=== PATIENT | female | born 1935 | race Caucasian/White ===

== ENCOUNTER → 2016-09-26 | Outpatient (CLI) | payer OTHER ==
[~2016-09-26] MED LIST: ASPI-321 OR; DILT120C68 PO; DYZ PO; FLUO1TAB12 PO; HYDR-5688 PO; INSDGI SC; INSUINJ14 SQ; LOSA1TAB38 PO; NITR0.4S UT; NXM/40 PO; ROPI1TAB PO; ROSU40TA PO; ZNTT/150 PO
--- NOTE | 2016-09-27 05:38 | PAP/PSG TECHNICIAN REPORT ---
[facility] Electric Dolly Operator Polysomnogram Report Study name: None Report date: 09/27/2016 Study date: 09/26/2016 Referring Physician: Francisco Javier Medina M.D. Name: RONEN DAVONTE Hayley Interpreting Physician: Francisco Javier Medina M.D. Date of : 1935 Electric Dolly Operator: Clinton Charlton RPSGT. Sex: Female Age: 81 StudyType: PSG PAP Weight: 171 lbs 14 inches Height: 81 years, Height 5' 1" Neck Circum: BMI: 32.31 Medications: ASPIRIN 81 MG, CRESTOR 40 MG, DILTIAZEM HCL ER 120 MG, ESOMEPRAZOLE MAGNESIUM 40 MG, FLUOEXTINE HCL 20 MG, LANTUS SOLOSTAR, LOSARTAN POTASSIUM 100 MG, NITROSTAT 0.4 MG, NOVOLOG FLEXPEN, RANITIDINE HCL 150 MG, ROPINIROLE HCL ER 12 MG, TRIAMTERENE HCTZ Patient History PATIENT HAD A SLEEP STUDY DONE IN AUGUST OF 2016 AND WAS POSITIVE FOR MITZY WITH AN AHI OF 30/HR. SHE IS HERE TODAY FOR A CPAP TITRATION. RM 6 Parameters Monitored NPSG: E1-M2, E2-M1, Fp1-M2, Fp2-M1, F3-M2, F4-M2, F4-M1, C3-M2, C4-M2, C4-M1, O1-M2, O2-M2, O2-M1, T3-M2, T4-M1, P3-M2, P4-M1, CHIN1, CHIN2, HR, EKG, Legs, PFLOW, SNOR, FLOW, CFLOW, Tidal Volume, THOR, ABDO, SpO2, PLTH, CPRESS, ETCO2 Wave, ETCO2, pH Sleep Architecture Sleep Stages Time at Lights Off 10:14:03 PM STAGES Time (min.) TST (%) Time at Lights On 5:23:03 AM Wake 154.5 -- Total Recording Time (TRT) 429.50 min. N1 24.5 9 Total Sleep Period (TSP) 410.0 min. N2 128.0 47 Total Sleep Time (TST) 274.5min. N3 51.0 19 Awake Time 155.0 min. REM 71.0 26 Wake after Sleep Onset 135.5 min. Sleep Efficiency (SE) 64 % Sleep Onset Latency (SAKINA) 19.0 min. Number of Stage 1 Shifts None Awakenings 33 Stage Changes 127 Number of REM periods 4 REM 71.0 26 REM Latency 169.5 min. NREM 203.5 74 Body Position Analysis Supine Right Left Side Prone Vertical Total Sleep Time (min.) 288.7 17.8 95.2 113.00 0.0 0.0 Total Sleep Time (%) 59% 7% 35% 41 0% N/A% Total Sleep Time REM (min.) 40.0 0.0 31.0 None 0.0 0.0 Total Sleep Time NREM (min.) 121.5 17.8 64.2 None 0.0 0.0 Intermittent Wake (min.) 127.2 23.1 4.3 None 0.0 0.0 Total Sleep Period (%) 66% None None None None None Arousals Myoclonus (PLM) * Events Count Index Events Count Index Spontaneous 82 18 Events Awake (PLMW) 146 56.7 Respiratory 116 25.4 Events Asleep w/ Arousal (PLMA) 41 9.0 PLM 39 9 Events Asleep w/o Arousal (PLMS) 256 56.0 Snoring 2 0 Total Asleep 297 64.9 Total 239 52 Total 443 62 Respiratory Analysis * CA OA MA CH H RERA Total Count 31 53 19 0 88 6 191 Index 6.8 11.6 4.2 0 19.2 1 43.1 Mean Duration 17.9 24.2 32.4 0.00 21.1 17.6 22.4 Longest Duration 31.4 46.5 51.9 0.00 51.9 30.5 57.5 Respiratory Event Summary Total Supine ~Supine Right Left Prone REM NREM Apneas Count 103 88 15 12 3 N/A 37 66 Index 22.5 33 8 40.3 1.9 N/A 31 19 Hypopneas (4% Desat) Count 88 55 33 3 30 N/A 17 71 Index 19.2 20.4 18 10.1 18.9 N/A 14.4 20.9 Apneas & All Hypopneas Count 191 143 48 15 33 N/A 54 137 Index 41.7 53 25 50 21 N/A 45.6 40.4 Respiratory Events (Rn Admissions+All Hyp+RERA) Count 191 146 51 16 35 N/A 54 137 Index 43.1 54 27 53.8 22.1 N/A 46.5 41.9 Respiratory Related Arousal Count 116 146 25 9 16 N/A 26 90 Index 25.4 34 13 30 10 N/A 22 27 Snoring Analysis Supine Right Left Prone REM NREM Total Snore duration 6.9 min Snores count 82 12 93 N/A 4 183 187 Snore mean duration 2.2 Sec Snores index 30 40 59 N/A 3.4 54.0 40.9 TST with snoring (%) 2.5% Desaturation Event Summary: Minimum %SpO2 Event Count Mean/Min/Max Duration(sec.) Desaturation Index % Time In Bed > 90 193 33.1 / 8.0 / 86.1 31.4 88.2 86 - 90 9 17.4 / 14.0 / 24.3 13.5 9.6 81 - 85 0 N/A 0.0 2.2 76 - 80 0 N/A 0.0 0.0 71 - 75 0 N/A 0.0 0.0 66 - 70 0 N/A 0.0 0.0 61 - 65 0 N/A 0.0 0.0 56 - 60 0 N/A 0.0 0.0 51 - 55 0 N/A 0.0 0.0 < 50 0 N/A 0.0 0.0 Total REM NREM Awake <50% 0.0 min. 0.0 min. 0.0 min. 0.0 min. 51 - 60% 0.0 min. 0.0 min. 0.0 min. 0.0 min. 61 - 70% 0.0 min. 0.0 min. 0.0 min. 0.0 min. 71 - 80% 0.1 min. 0.0 min. 0.1 min. 0.0 min. 81 - 90% 49.1 min. 18.6 min. 26.5 min. 3.9 min. 91 - 100% 368.8 min. 52.4 min. 176.9 min. 139.5 min. Average 94 92 93 96 Minimum SpO2 80 81 80 84 Desaturation Event Index 27.1 43.1 38.9 5.4 # Desat. Events below 89% 85 34 48 3 Time(%) with Saturation below 89% 6.3 2.7 3.0 0.5 Time(min.) with Saturation below 89% 26.2 11.5 12.7 2.0 Time (mins) REM (mins) NREM (mins) % of TST SpO2 Below 90% 112 39 N73 12.2 SpO2 Below 88% 49 0 0 7 Heart Rate Analysis Min (bpm) Max (bpm) Average (bpm) Awake 55 127 64 NREM 54 74 64 REM 52 68 59 Overall 52 74 63 Supplemental O2 Values Minimum O2 level: None Value Start Time End Time Electric Dolly Operator Comments Mrs. Douglas slept in the right, left and supine positions. No cardiac arrhythmia noted. Leg movements noted. No bruxism noted. CPAP was initiated at +4 CMH2O and up-titrated to an level of +16 CMH2O. A ResMed F10 full face size extra small mask was used during titration Mrs. Douglas awoke to use the restroom 2 times during the night. Mrs. Douglas stated I did not sleep as well as I do when I am in my own bed. The patient had some mask issues throughout the study that interfered with the quality of the test. She would be bothered by the mask when she opened up her mouth and the bottom flap of the mask would go in her mouth. The same thing would happen to all of the masks she tried on. She slept with a full face F10 extra small mask that seemed to fit her the best but would cause problems for her when she opened her mouth. Also, I titrated up to 14cwp while having severe apneas and tried to use BIPAP but the patient didn't like how BIPAP felt, so I had to go back to CPAP. The patient continued to have centrals and mixed apneas at the higher pressures but would have many respiratory events at the lower pressures as well. The only time the patient seemed to sleep well was during stage 3 sleep. The final report will be interpreted and signed by a sleep physician. The completed physician report will then be placed in the patient medical record. Therapy Event: Therapy (cm H20) 4 5 6 8 9 10 11 Total Time at Pressure (min.) 52.0 16.5 30.6 35.1 55.5 24.5 29.0 TST at Pressure (min.) 9.0 16.0 27.1 34.6 19.5 24.0 27.5 # Periods 1 1 1 1 1 2 1 Sleep Onset (min.) 19.0 0.0 0.0 0.0 0.0 0.0 0.0 REM Onset (min.) N/A N/A N/A N/A 54.4 0.0 N/A Sleep Efficiency % 17 97 88 98 35 98 94 Wakefulness (%) 82.7 3.0 11.4 1.4 64.9 2.0 5.2 Wakefulness (min.) 43.0 0.5 3.5 0.5 36.0 0.5 1.5 NREM 1 (%) 10.6 9.1 24.5 0.0 1.8 4.5 0.0 NREM 1 (min.) 5.5 1.5 7.5 0.0 1.0 1.1 0.0 NREM 2 (%) 6.7 87.9 64.0 38.7 31.4 43.3 39.2 NREM 2 (min.) 3.5 14.5 19.6 13.6 17.4 10.6 11.4 NREM 3 (%) 0.0 0.0 0.0 59.9 0.0 0.0 55.6 NREM 3 (min.) 0.0 0.0 0.0 21.0 0.0 0.0 16.2 REM (%) 0.0 0.0 0.0 0.0 1.9 50.2 0.0 REM (min.) 0.0 0.0 0.0 0.0 1.1 12.3 0.0 # Arousals 14 32 49 18 22 15 8 Arousal Index 93.5 120.2 108.6 31.3 67.8 37.5 17.4 # Snore 13 20 23 11 7 3 71 Snore Index 86.8 75.2 51.0 19.1 21.6 7.5 154.6 AHI 80.1 63.9 37.7 26.0 67.8 45.0 17.4 AHI Supine 80.1 63.9 37.7 26.0 67.8 61.0 N/A AHI Non-Supine N/A N/A N/A N/A N/A 26.8 17.4 NREM AHI 80.1 63.9 37.7 26.0 68.4 30.8 17.4 REM AHI N/A N/A N/A N/A 56.4 58.6 N/A RDI 80.1 67.6 37.7 26.0 70.8 47.5 17.4 # Obstructive 0 1 0 2 6 9 2 # Central Ap 3 3 4 8 4 0 0 # Mixed 0 0 0 2 1 0 0 # Hypopneas 9 13 13 3 11 9 6 RERAS 0 1 0 0 1 1 0 Total Respiratory Events 12 18 17 15 23 19 8 Time Below SpO2 89.00% (min.) 2.0 0.7 0.0 1.1 3.4 4.1 0.5 Mean NREM SpO2 (%) 92 93 95 93 93 92 92 Mean REM SpO2 (%) N/A N/A N/A N/A 90 90 N/A Mean Sleep SpO2 (%) 92 93 95 93 93 91 92 Min NREM SpO2 (%) 81 87 90 85 80 85 85 Min REM SpO2 (%) N/A N/A N/A N/A 83 81 N/A Position Supine (min.) 9.0 16.0 27.1 34.6 19.5 12.8 0.0 Position Non-supine (min.) 0.0 0.0 0.0 0.0 0.0 11.2 27.5 LM Index Sleep 113.5 172.8 177.2 53.8 37.0 47.5 17.4 LM Index NREM 113.5 172.8 177.2 53.8 35.8 35.9 17.4 LM Index REM N/A N/A N/A N/A 56.4 58.6 N/A Mean Heart Rate (bpm) 64 69 70 67 63 61 61 Min Heart Rate (bpm) 60 64 66 62 58 57 58 Therapy (cm H20) 12 14 15 16 12/8 13/9 Total Time at Pressure (min.) 45.5 19.3 62.2 21.4 10.3 27.3 TST at Pressure (min.) 45.0 13.8 27.2 15.9 10.3 4.8 # Periods 2 2 1 1 1 1 Sleep Onset (min.) 0.0 0.0 0.0 0.0 0.0 0.0 REM Onset (min.) 24.8 0.0 0.0 0.0 N/A N/A Sleep Efficiency % 98 71 43 74 100 17 Wakefulness (%) 1.1 28.5 56.3 25.7 0.0 82.5 Wakefulness (min.) 0.5 5.5 35.0 5.5 0.0 22.5 NREM 1 (%) 1.1 5.2 3.2 14.0 4.9 3.3 NREM 1 (min.) 0.5 1.0 2.0 3.0 0.5 0.9 NREM 2 (%) 22.0 12.3 9.6 25.7 95.1 14.2 NREM 2 (min.) 10.0 2.4 6.0 5.5 9.8 3.9 NREM 3 (%) 30.5 0.0 0.0 0.0 0.0 0.0 NREM 3 (min.) 13.8 0.0 0.0 0.0 0.0 0.0 REM (%) 45.4 54.1 30.9 34.6 0.0 0.0 REM (min.) 20.6 10.4 19.2 7.4 0.0 0.0 # Arousals 24 9 15 14 14 5 Arousal Index 32.0 39.1 33.1 52.8 81.9 62.9 # Snore 20 0 5 2 8 4 Snore Index 26.7 0.0 11.0 7.5 46.8 50.3 AHI 32.0 39.1 39.7 64.1 64.3 37.7 AHI Supine 66.7 58.9 69.3 64.1 N/A N/A AHI Non-Supine 24.4 33.4 0.0 N/A 64.3 37.7 NREM AHI 19.7 17.8 52.5 77.6 64.3 37.7 REM AHI 46.6 46.0 34.4 48.6 N/A N/A RDI 34.7 39.1 39.7 64.1 70.2 37.7 # Obstructive 9 3 4 5 9 3 # Central Ap 0 0 5 4 0 0 # Mixed 0 0 9 7 0 0 # Hypopneas 15 6 0 1 2 0 RERAS 2 0 0 0 1 0 Total Respiratory Events 26 9 18 17 12 3 Time Below SpO2 89.00% (min.) 5.1 0.3 3.0 2.1 1.9 0.0 Mean NREM SpO2 (%) 92 95 95 93 92 94 Mean REM SpO2 (%) 93 94 93 93 N/A N/A Mean Sleep SpO2 (%) 92 94 93 93 92 94 Min NREM SpO2 (%) 82 91 84 84 81 85 Min REM SpO2 (%) 82 87 82 83 N/A N/A Position Supine (min.) 8.1 3.1 15.6 15.9 0.0 0.0 Position Non-supine (min.) 36.9 10.8 11.6 0.0 10.3 4.8 LM Index Sleep 33.4 69.4 8.8 56.6 87.7 113.2 LM Index NREM 29.6 124.3 15.0 77.6 87.7 113.2 LM Index REM 37.8 51.7 6.3 32.4 N/A N/A Mean Heart Rate (bpm) 60 61 58 60 63 63 Min Heart Rate (bpm) 56 54 52 55 58 60
--- NOTE | 2016-09-29 02:38 | POLYSOMNOGRAPH REPORT ---
CLINICAL DATA: An 81-year-old female with a BMI of 32.31, referred by myself and Dr. Espinoza with symptoms of severe sleep apnea and severe PLMD for a CPAP titration study. Her baseline study showed an AHI of 30.4. SLEEP ARCHITECTURE: Total sleep period was 410 minutes. Total sleep time was 274.5 minutes divided between 203.5 minutes of non-REM sleep and 71 minutes of REM sleep. Sleep onset latency was 19 minutes. REM latency was delayed at 169.5 minutes. Sleep efficiency was reduced at 64%. Wake after sleep onset was 135.5 minutes. Sleep consisted of stage N1 9%, N2 47%, N3 19%, and REM 26%. AROUSAL DATA: 239 arousals were recorded for an index of 52 per hour. 116 were due to respiratory events. PLM DATA: Severely elevated limb movements during sleep were noted. There were 297 limb movements during sleep noted for an index of 64.9 per hour with arousal index of 9 per hour. RESPIRATORY DATA: Severe sleep apnea was documented. The AHI was 41.7. The RDI was 43.1. There were 31 central, 53 obstructive and 19 mixed apneic episodes. The longest apneic episode was 51.9 seconds. There were 88 hypopneic episodes. The longest duration of hypopnea was 51.9 seconds. There were 6 RERAs. The longest RERA was 30.5 seconds. OXIMETRY DATA: Nocturnal hypoxemia was seen. Oxygen teja was 80% during non-REM sleep. The mean saturation was 94%. Time below 88% was 49 minutes. EKG: Heart ranged from 52-74 beats per minute. No arrhythmias were noted. LOCAL AREA NETWORK SYSTEMS ADMINSTRATOR'S COMMENTS AND TREATMENT SUMMARY: The patient slept in the right, left, and supine position. The patient was having difficulty with mask fit and used a ResMed F10 full face size extra small mask. She was started on CPAP and was titrated incrementally up to 16 cm of water pressure. Because of high pressure requirements, BiPAP was tried, but the patient did not feel that she could tolerate BiPAP. No optimal treatment pressure could be found with the best AHI achieved at 11 cm of water pressure with an AHI of 17.4. The patient did develop some treatment onset central apneas. IMPRESSION: An 81-year-old female with severe restless legs syndrome, periodic limb movement disorder, and severe sleep apnea. An attempt at CPAP/BiPAP titration was not totally successful and the patient continued to have both central and obstructive episodes, consistent with incomplete titration and treatment onset central apneas. RECOMMENDATIONS: The patient may benefit from use of auto CPAP. MTDD
== END | disposition home or self-care (01) ==
LOC: C.NEUR 21:00
PROVIDERS: ATTEND Internal Medicine Pulmonary Disease
DX: G47.33 Obstructive sleep apnea (adult) (pediatric) (principal); G25.81 Restless legs syndrome; G47.61 Periodic limb movement disorder

== ENCOUNTER → 2016-10-06 | Outpatient (CLI) | payer OTHER ==
[~2016-10-06] VITALS: Ht 154.9 cm; Wt 77.5 kg
[2016-10-06 09:00] VITALS: BP 164/52; PULSE 84; Ht 154.9 cm; Wt 77.5 kg
== END | disposition home or self-care (01) ==
LOC: C.NEUR 08:44
PROVIDERS: ATTEND Internal Medicine Pulmonary Disease
DX: G47.31 Primary central sleep apnea (principal); G47.61 Periodic limb movement disorder; G25.81 Restless legs syndrome; G47.33 Obstructive sleep apnea (adult) (pediatric)

== ENCOUNTER → 2016-12-19 | Outpatient (CLI) | payer OTHER ==
[~2016-12-19] MED LIST changes: -HYDR-5688 PO
[2016-12-19 14:38] VITALS: BP 150/75; PULSE 73
== END | disposition home or self-care (01) ==
LOC: C.NEUR 12:41
PROVIDERS: ATTEND Internal Medicine Pulmonary Disease
DX: G47.31 Primary central sleep apnea (principal); G25.81 Restless legs syndrome

== ENCOUNTER → 2017-01-05 | Outpatient (CLI) | payer OTHER ==
[2017-01-05 14:42] LABS: HEMATOCRIT 39.1 % (37-47); MEAN CELL VOLUME 83.2 fL (80-100); MEAN CORPUSCULAR HEMOGLOBIN 27.4 pg (25-34); MEAN PLATELET VOLUME 10.1 fL (7.4-10.4); PLATELET COUNT 238 K/uL (130-400); WHITE BLOOD COUNT 13.21 K/uL (4.8-10.8)
[2017-01-05 15:01] LABS: URINE APPEARANCE CLEAR (CLEAR); URINE BILIRUBIN NEG (NEG); URINE COLOR YELLOW; URINE EPITHELIAL CELL AUTO >30 /lpf (0-5); URINE NITRITE NEG (NEG); URINE SPECIFIC GRAVITY 1.016 (1.000-1.030); UROBILINOGEN NEG (NEG)
[2017-01-05 15:04] LABS: BLOOD UREA NITROGEN 32 mg/dl (7-18); BUN/CREATININE RATIO 19.9 (10-20); CALCIUM 8.9 mg/dl (8.5-10.1); CARBON DIOXIDE 26 mmol/L (21-32); CHLORIDE 109 mmol/L (98-107); GLUCOSE 205 mg/dl (70-99); PHOSPHORUS 3.1 mg/dl (2.5-4.9); POTASSIUM 4.2 mmol/L (3.5-5.1); SODIUM 140 mmol/L (136-145)
[2017-01-05 15:05] LABS: MANUAL MICROSCOPIC REQUIRED? NO; REVIEW REQ? NO
[2017-01-05 15:38] LABS: URINE PROTIEN/CREAT RATIO 0.2 (0-0.2); URINE TOTAL PROTEIN 19.5 mg/dl (0-11.9)
[2017-01-06 07:21] LABS: ESTIMATED AVERAGE GLUCOSE 183 mg/dl; HA1C FLAG Normal (Normal)
== END | disposition home or self-care (01) ==
LOC: C.LAB1850 12:54
PROVIDERS: ATTEND Internal Medicine Nephrology
DX: I12.9 Hypertensive chronic kidney disease with stage 1 through stage 4 chronic kidney disease, or unspecified chronic kidney disease (principal); N18.3 Chronic kidney disease, stage 3 (moderate); R80.9 Proteinuria, unspecified; E55.9 Vitamin D deficiency, unspecified; E11.42 Type 2 diabetes mellitus with diabetic polyneuropathy; E11.22 Type 2 diabetes mellitus with diabetic chronic kidney disease

== ENCOUNTER → 2017-03-08 | Outpatient (CLI) | payer OTHER ==
--- NOTE | 2017-03-08 12:21 | DIAGNOSTIC IMAGING REPORT ---
Ultrasound popliteal fossa and soft tissues and the LEFT EXTREMITY NONVASCULAR LIMITED CLINICAL HISTORY: M25.562 Left knee paint has a hx of bilat knee replacement ab TECHNIQUE: Ultrasound COMPARISON STUDY: None FINDINGS: No evidence for abscess collection or popliteal cyst based on ultrasound criteria. Popliteal space appears to be unremarkable. IMPRESSION: Normal study Electronically signed by: Avel Mercado M.D. 03/08/2017 12:20 PM Dictated Date/Time: 03/08/2017 12:19 PM
== END | disposition home or self-care (01) ==
LOC: C.ULTR 10:27
PROVIDERS: ATTEND Physician Assistant
DX: M25.562 Pain in left knee (principal); Z96.653 Presence of artificial knee joint, bilateral

== ENCOUNTER → 2017-04-11 | Outpatient (CLI) | payer OTHER ==
[~2017-04-11] MED LIST changes: +MethylPREDNISolone HOME PACK 16 MG TAB PO SCH
--- NOTE | 2017-04-11 14:12 | DIAGNOSTIC IMAGING REPORT ---
LEFT HIP INJECTION UNDER FLUOROSCOPIC GUIDANCE CLINICAL HISTORY: Degenerative joint disease. Steroid injection. PROCEDURE: The risks, benefits, and alternatives to the procedure were discussed with the patient. Written informed consent was obtained. The patient was placed supine on the fluoroscopy table, and a left hip injection was performed under fluoroscopic guidance. The area was prepped and draped in the usual sterile fashion. The skin and soft tissues anesthetized with local 1% lidocaine. The left hip joint was accessed utilizing a 22-gauge needle, and intra-articular positioning was confirmed by injecting a small volume of Optiray 300. The prescribed dosage of 5 cc of 0.5% bupivacaine and 2 cc of betamethasone was then injected into the joint space. There was normal distention of the capsule. The patient was premedicated for a reported history of contrast allergy. The procedure was well tolerated and without immediate complication. The patient left the department in satisfactory condition. FLUOROSCOPY TIME: 20 seconds. IMPRESSION: Successful steroid injection of the left hip under fluoroscopic guidance. Electronically signed by: López Guevara M.D. 04/11/2017 2:11 PM Dictated Date/Time: 04/11/2017 2:09 PM
== END | disposition home or self-care (01) ==
LOC: C.RADBC 12:33
PROVIDERS: ATTEND Orthopaedic Surgery
DX: M16.12 Unilateral primary osteoarthritis, left hip (principal)

== ENCOUNTER → 2017-05-16 | Outpatient (CLI) | payer OTHER ==
[~2017-05-16] MED LIST changes: -MethylPREDNISolone HOME PACK 16 MG TAB PO SCH
[2017-05-16 09:32] LABS: HEMATOCRIT 38.2 % (37-47); MEAN CELL VOLUME 84.1 fL (80-100); MEAN CORPUSCULAR HEMOGLOBIN 28.2 pg (25-34); MEAN CORPUSCULAR HGB CONC 33.5 g/dl (32-36); MEAN PLATELET VOLUME 10.3 fL (7.4-10.4); PLATELET COUNT 222 K/uL (130-400); RED BLOOD COUNT 4.54 M/uL (4.2-5.4); WHITE BLOOD COUNT 11.19 K/uL (4.8-10.8)
[2017-05-16 09:42] LABS: ALT/SGPT 15 U/L (12-78); AST/SGOT 15 U/L (15-37); BLOOD UREA NITROGEN 34 mg/dl (7-18); BUN/CREATININE RATIO 25.8 (10-20); CALCIUM 8.8 mg/dl (8.5-10.1); CARBON DIOXIDE 23 mmol/L (21-32); CHLORIDE 110 mmol/L (98-107); GLUCOSE 155 mg/dl (70-99); POTASSIUM 4.1 mmol/L (3.5-5.1); SODIUM 140 mmol/L (136-145)
[2017-05-16 09:52] LABS: CHOLESTEROL 107 mg/dl (0-200); CHOLESTEROL/HDL RATIO 3.1; HDL CHOLESTEROL 35 mg/dl; LDL CHOLESTEROL CALCULATED 45 mg/dl; PHOSPHORUS 3.3 mg/dl (2.5-4.9); TRIGLYCERIDES 133 mg/dl (0-150); VERY LOW DENSITY LIPOPROT CALC 27 mg/dl
[2017-05-16 09:53] LABS: ESTIMATED AVERAGE GLUCOSE 180 mg/dl; HA1C FLAG Normal (Normal)
[2017-05-16 10:04] LABS: URINE PROTIEN/CREAT RATIO 0.2 (0-0.2); URINE TOTAL PROTEIN 16.8 mg/dl (0-11.9)
[2017-05-16 10:13] LABS: URINE APPEARANCE CLEAR (CLEAR); URINE BILIRUBIN NEG (NEG); URINE COLOR YELLOW; URINE NITRITE NEG (NEG); URINE PH 5.5 (4.5-7.5); UROBILINOGEN NEG (NEG)
[2017-05-16 10:17] LABS: MANUAL MICROSCOPIC REQUIRED? NO; REVIEW REQ? NO
== END | disposition home or self-care (01) ==
LOC: C.LAB1850 07:55
PROVIDERS: ATTEND Nurse Practitioner Family
DX: R32 Unspecified urinary incontinence (principal); E11.9 Type 2 diabetes mellitus without complications; I25.10 Atherosclerotic heart disease of native coronary artery without angina pectoris; I12.9 Hypertensive chronic kidney disease with stage 1 through stage 4 chronic kidney disease, or unspecified chronic kidney disease; E55.9 Vitamin D deficiency, unspecified; N25.81 Secondary hyperparathyroidism of renal origin; N18.3 Chronic kidney disease, stage 3 (moderate)

== ENCOUNTER → 2017-05-24 | Outpatient (CLI) | payer OTHER ==
[2017-05-24 14:57] LABS: URINE APPEARANCE CLEAR (CLEAR); URINE BILIRUBIN NEG (NEG); URINE COLOR YELLOW; URINE NITRITE NEG (NEG); URINE PH 5.5 (4.5-7.5); UROBILINOGEN NEG (NEG)
[2017-05-24 15:04] LABS: MANUAL MICROSCOPIC REQUIRED? NO; REVIEW REQ? NO
== END | disposition home or self-care (01) ==
LOC: C.LAB1850 12:53
PROVIDERS: ATTEND Internal Medicine
DX: R32 Unspecified urinary incontinence (principal)

== ENCOUNTER → 2017-08-17 | Outpatient (CLI) | payer OTHER ==
[2017-08-17 12:20] LABS: ESTIMATED AVERAGE GLUCOSE 171 mg/dl; HA1C FLAG Normal (Normal)
[2017-08-17 12:37] LABS: URINE APPEARANCE CLEAR (CLEAR); URINE BILIRUBIN NEG (NEG); URINE COLOR YELLOW; URINE EPITHELIAL CELL AUTO 20-30 /lpf (0-5); URINE NITRITE NEG (NEG); URINE PH 5.5 (4.5-7.5); URINE SPECIFIC GRAVITY 1.017 (1.000-1.030); UROBILINOGEN NEG (NEG)
[2017-08-17 12:43] LABS: MANUAL MICROSCOPIC REQUIRED? NO; REVIEW REQ? NO
== END | disposition home or self-care (01) ==
LOC: C.LAB1850 10:20
PROVIDERS: ATTEND Nurse Practitioner Family
DX: E11.9 Type 2 diabetes mellitus without complications (principal); R39.9 Unspecified symptoms and signs involving the genitourinary system

== ENCOUNTER → 2017-11-08 | Outpatient (CLI) | payer OTHER ==
[~2017-11-08] MED LIST changes: +RANI150T85 PO; -ZNTT/150 PO
[2017-11-08 09:32] LABS: BASO % 0.1 %; BASO ABS # 0.01 K/uL (0-0.2); EOS % 0.4 %; EOS ABS # 0.06 K/uL (0-0.5); HEMATOCRIT 39.4 % (37-47); HEMOGLOBIN 13.2 g/dL (12.0-16.0); IG# 0.07 K/uL (0.00-0.02); LYMPH % 25.2 %; LYMPH ABS # 3.71 K/uL (1.2-3.4); MEAN CELL VOLUME 83.5 fL (80-100); MEAN CORPUSCULAR HGB CONC 33.5 g/dl (32-36); MEAN PLATELET VOLUME 10.2 fL (7.4-10.4); MONO % 5.8 %; MONO ABS # 0.85 K/uL (0.11-0.59); NEUT ABS # 10.05 K/uL (1.4-6.5); PLATELET COUNT 255 K/uL (130-400); RED CELL DISTRIBUTION WIDTH CV 14.5 % (11.5-14.5); RED CELL DISTRIBUTION WIDTH SD 44.2 fL (36.4-46.3); WHITE BLOOD COUNT 14.75 K/uL (4.8-10.8)
[2017-11-08 09:57] LABS: ALBUMIN 3.4 gm/dl (3.4-5.0); ALT/SGPT 17 U/L (12-78); AST/SGOT 8 U/L (15-37); BLOOD UREA NITROGEN 46 mg/dl (7-18); CALCIUM 8.7 mg/dl (8.5-10.1); CARBON DIOXIDE 23 mmol/L (21-32); CREATININE 1.39 mg/dl (0.60-1.20); GLUCOSE 129 mg/dl (70-99); POTASSIUM 4.3 mmol/L (3.5-5.1); SODIUM 139 mmol/L (136-145)
[2017-11-08 10:01] LABS: CHOLESTEROL 121 mg/dl (0-200); LDL CHOLESTEROL CALCULATED 50 mg/dl; PHOSPHORUS 2.8 mg/dl (2.5-4.9)
[2017-11-08 10:04] LABS: HEMOGLOBIN A1C 8.1 % (4.5-5.6)
== END | disposition home or self-care (01) ==
LOC: C.LAB1850 08:04
PROVIDERS: ATTEND Internal Medicine Nephrology
DX: D72.829 Elevated white blood cell count, unspecified (principal); I25.10 Atherosclerotic heart disease of native coronary artery without angina pectoris; I12.9 Hypertensive chronic kidney disease with stage 1 through stage 4 chronic kidney disease, or unspecified chronic kidney disease; E11.22 Type 2 diabetes mellitus with diabetic chronic kidney disease; N18.3 Chronic kidney disease, stage 3 (moderate); N30.00 Acute cystitis without hematuria; R80.9 Proteinuria, unspecified; E55.9 Vitamin D deficiency, unspecified

== ENCOUNTER 2022-01-02 09:05 | Inpatient (IN) ==
[2022-01-02] MEDS ORDERED: ALBUT/IPRATROP 3MG/0.5MG NEB 3 ML VIAL NEB STA (09:28)
--- NOTE | 2022-01-02 09:33 | Emergency Department Note ---
Impression & Plan COVID-19 virus infection, ETIENNE (dyspnea on exertion), Urinary tract infection, Elevated troponin I level ED Provider Note NAME: DAVONTE HARDWICK AGE: 86 SEX: F : 1935 ARRIVES VIA: Walk-In INFORMANT: Patient, ED PROVIDER(S): Flaquito Bran DO CHIEF COMPLAINT: Cough and difficulty breathing HPI: The patient is an 86-year-old male who presented to the emergency department for an evaluation of cough difficulty breathing. She states that she had low-grade fever. She is been coughing a significant amount as well as whe ezing. The patient states she called her family doctor this morning and was told to come the emergency department because I could hear her wheezing. The patient states her symptoms are worsened with exertion. She does have a productive cough. Patient denies having any back pain or abdominal pain. She has had an episode of emesis. She denies having any black or bloody bowel moods. Patient states that she does have a cardiac as well as her renal history. She states she has been compliant with her outpatient medications. Her symptoms are worsened with exertion. She denies having any orthopnea. ROS: See above HPI for pertinent positives & negatives. A total of 10 systems reviewed and were otherwise negative. PAST MEDICAL HISTORY: See Below PAST SURGICAL HISTORY: See Below FAMILY HISTORY: See Below SOCIAL HISTORY: See Below HOME MEDICATIONS: See Below ALLERGIES: See Below VITALS: See Below PHYSICAL EXAMINATION: GENERAL: The patient is awake and alert. She is somewhat anxious appearing. EYES: The conjunctivae are clear. The pupils are round and reactive. EARS, NOSE, MOUTH AND THROAT: The nose is without any evidence of any deformity. NECK: The neck is nontender and supple. RESPIRATORY: There is conversational dyspnea appreciated. There were diminished breath sounds in the right lung field with wheezes in the left lung field. CARDIOVASCULAR: Regular rate and rhythm noted there no murmurs rubs or gallops normal S1 normal S2. GASTROINTESTINAL: The abdomen is soft. Abdomen is nontender. MUSCULOSKELETAL/EXTREMITIES: There is no evidence of gross deformity full range of motion is noted in the hips and shoulders. SKIN: There is no obvious evidence of any rash. There are no petechiae, pallor or cyanosis noted. NEUROLOGIC: Patient is awake alert and oriented x3 MEDICAL DECISION MAKING: The patient is an 86-year-old female who presented to the emergency department for an evaluation of difficulty breathing. She reported a low-grade fever. The patient's history and physical exam appear to be consistent with pneumonia. Further laboratory and radiographic studies were obtained. She was found to have signs of urinary tract infection but also an elevated troponin. Given the degree of her breathing difficulty further studies were obtained. The patient was found to have an elevated troponin. There was no signs of pulmonary embolism on CT of the chest. I discussed the patient's laboratory and radiographic studies with her. She did not have hypoxia on exertion but appears to become very short of breath and tachypneic with any exertion at all. For this reason the [facility] was notified about the patient. They will evaluate the patient in the emergency department. Triage Nursing notes reviewed. Prior medical records reviewed Vital Signs: reviewed and remarkable for tachypnea and elevated blood pressure. Differential diagnosis: Reactive airway disease, pneumonia, pneumothorax, COPD, CHF, infections, cardiac ischemia, pulmonary embolism, musculoskeletal, gastrointestinal, as well as other pathologies. ER treatment provided: See below Diagnostics interpreted by me: ECG: EKG was obtained in the emergency department. My interpretation is normal sinus rhythm at 84 bpm. LVH was suggested by voltage criteria. Nonspecific ST segment depressions were noted in the lateral leads. Poor R wave progression was appreciated. This was compared to a tracing from February 06, 2020. No changes were noted. Cardiac Monitoring: An order was placed for continuous cardiac monitoring. The monitor shows a rate of 92 bpm with sinus rhythm. Laboratory studies: As stated above and show below. Imaging studies: See below Consultation(s): I discussed this case with Dr. Gambino who is on-call for the [facility] hospitalist group. Past Med/Surg History Medical History Anxiety Chronic kidney disease, stage 3 Follows with neprho- stable- baseline creat 1.3 since February 2010 Chronic low back pain Chronic SI joint pain Diabetes mellitus, type 2 Follows with endo DSAP (disseminated superficial actinic porokeratosis) Dyslipidemia Dysphagia Esophageal dysmotility GERD (gastroesophageal reflux disease) Hyperlipidemia Hypertension Restless leg syndrome Sensory hearing loss, bilateral Sleep apnea cpap Spinal stenosis Surgical History History of arthroscopy of right knee History of bilateral cataract extraction History of bilateral tubal ligation History of bladder surgery bladder tuck x2 History of cardiac cath 1997 @ [facility] no stent--d/t heart failure History of carpal tunnel release of both wrists History of colonoscopy History of dilatation and curettage History of elbow surgery LEFT/RT History of esophageal dilatation History of esophagogastroduodenoscopy (EGD) History of left breast biopsy benign History of lumbar spinal fusion History of lumpectomy of left breast benign History of open reduction and internal fixation (ORIF) procedure right leg--hardware in place History of right breast biopsy benign History of surgical procedure on mouth removed benign tissue from lower jaw History of toe surgery big toe History of tonsillectomy and adenoidectomy History of tooth extraction all teeth removed History of total hysterectomy with bilateral salpingo-oophorectomy (BSO) History of total left knee replacement (TKR) x2 History of total right knee replacement (TKR) x2 Hx of repair of left rotator cuff x2 Hx of repair of right rotator cuff S/P appendectomy S/P exploratory laparotomy Family History Mother Heart disease Myocardial infarction Family/Other Arthritis Father Asthma Sister Ovarian cancer Heart disease Family history of diabetes mellitus Sister Family history of diabetes mellitus Other No family history of adverse response to anesthesia Denies family history of Prostate cancer Kidney disease Breast cancer Colorectal cancer Social History Smoking Status: Never smoker Second Hand Exposure: Yes ( SMOKED IN THE PAST); Hx Alcohol Use: No Hx Substance Use: No Preferred Language: Kinyarwanda Communication Ability: Effective Demographic Analyst Required: No Beliefs That Will Affect Care: None marital status: Current Living Situation: Spouse current occupational status: retired Feels Safe at Home: Yes Childhood Exposure to Second-Hand Smoke: Yes Dental Care, Regularly: No Physical Activity Frequency: Does not Exercise Seatbelt Use: always Sunscreen Use: Yes Assistive Devices: Cane, CPAP, Denture - Upper, Denture - Lower, Glasses and Hearing Aid - Bilateral Allergies Allergies Allergy/AdvReac Type Severity Reaction Status Date / Time valdecoxib Allergy Severe DYSPNEA, Verified 12/27/21 15:36 HAS TOLERATED TORADOL hydrochlorothiazide Allergy Intermediate itching Verified 12/27/21 15:36 [From Dyazide] Iodinated Contrast Media Allergy Intermediate RASH Verified 12/27/21 15:36 triamterene [From Dyazide] Allergy Intermediate itching Verified 12/27/21 15:36 adhesive Allergy Mild CLOTH Verified 12/27/21 15:36 ADHESIVE/BANDAIDS-RASH metformin Allergy Mild Diarrhea Verified 12/27/21 15:36 Home Meds Home Medications Medication Instructions Recorded Confirmed cholecalciferol (vitamin D3) 25 1,000 units PO HS 03/14/19 12/27/21 mcg (1,000 unit) capsule ascorbic acid (vitamin C) 1,000 mg 1 gm PO QAM tab 05/16/19 12/27/21 tablet calcium carbonate 500 mg calcium 500 mg PO HS tab 05/16/19 12/27/21 (1,250 mg) chewable tablet valacyclovir 500 mg tablet 500 mg PO DAILY 05/09/21 12/27/21 (Valtrex) blood sugar diagnostic ([facility] 05/12/21 12/27/21 Verio test strips) esomeprazole magnesium 40 mg 40 mg PO DAILY cap 05/12/21 12/27/21 capsule,delayed release lancets 30 gauge ([facility] ea 05/12/21 12/27/21 Lancets) Previous Rx's Medication Instructions Recorded aspirin 81 mg tablet,delayed 81 mg PO Q2D #30 tab 03/29/21 release (Aspirin Low Dose) ropinirole 12 mg tablet,extended 12 mg PO HS #90 tab 04/04/21 release 24 hr triamcinolone acetonide 0.1 % 1 applic TOPICAL DAILY #453.6 g 06/23/21 topical cream rosuvastatin 40 mg tablet 40 mg PO HS #90 tab 07/27/21 fluoxetine 20 mg capsule 20 mg PO QPM #30 cap 08/08/21 promethazine-DM 6.25 mg-15 mg/5 mL 5 ml PO Q6H PRN #473 ml 09/20/21 oral syrup nitroglycerin 0.4 mg sublingual 0.4 mg SL Q5M PRN #25 tab 10/11/21 tablet losartan 100 mg tablet 100 mg PO QPM #90 tab 11/29/21 diphenoxylate-atropine 2.5 1 tab PO TID PRN #90 tab 12/12/21 mg-0.025 mg tablet Basaglar KwikPen U-100 Insulin 100 30 unit SQ DAILY #30 ml NS 12/15/21 unit/mL (3 mL) subcutaneous (insulin glargine) insulin aspart U-100 100 unit/mL 30 unit SUBCUT DAILY #30 ml 12/15/21 (3 mL) subcutaneous pen (Novolog Flexpen U-100 Insulin aspart) Results & Data (ED) Vital Signs Vital Signs - 24 hr 01/02/22 09:09 01/02/22 09:20 01/02/22 09:30 Temperature 36.9 C Temperature Source Temporal Artery Scan Pulse Rate 88 83 83 Pulse Rate [Apical] Pulse Rate from SpO2 Sensor 84 83 Pulse Rhythm Regular Pulse Strength Normal Respiratory Rate 22 24 22 Respiratory Effort / Characteristics Respiratory Depth Normal Respiratory Pattern Regular Blood Pressure 183/73 H Blood Pressure [Left Arm] Blood Pressure Mean 109 Blood Pressure Mean [Left Arm] Blood Pressure Position Sitting Pulse Oximetry 96 95 94 Oxygen Delivery Method Room Air Sepsis Recent Fever Within 48 Hours Yes Sepsis New/Unexplained Change in Mental Status No Sepsis Action Taken by Nursing No Action Required 01/02/22 09:34 01/02/22 09:36 01/02/22 09:39 Temperature Temperature Source Pulse Rate 80 79 Pulse Rate [Apical] 80 Pulse Rate from SpO2 Sensor 80 Pulse Rhythm Pulse Strength Respiratory Rate 20 20 20 Respiratory Effort / Characteristics Non-Labored Spontaneous Respiratory Depth Normal Respiratory Pattern Regular Blood Pressure 184/78 H Blood Pressure [Left Arm] 184/78 H Blood Pressure Mean 113 Blood Pressure Mean [Left Arm] 113 Blood Pressure Position Pulse Oximetry 94 95 97 Oxygen Delivery Method Room Air Room Air Sepsis Recent Fever Within 48 Hours Sepsis New/Unexplained Change in Mental Status Sepsis Action Taken by Nursing 01/02/22 10:00 01/02/22 11:05 01/02/22 13:00 Temperature Temperature Source Pulse Rate 85 Pulse Rate [Apical] 71 79 Pulse Rate from SpO2 Sensor 85 Pulse Rhythm Pulse Strength Respiratory Rate 20 21 26 H Respiratory Effort / Characteristics Respiratory Depth Respiratory Pattern Blood Pressure Blood Pressure [Left Arm] 138/90 142/91 H Blood Pressure Mean Blood Pressure Mean [Left Arm] 106 108 Blood Pressure Position Pulse Oximetry 93 97 95 Oxygen Delivery Method Room Air Room Air Sepsis Recent Fever Within 48 Hours Sepsis New/Unexplained Change in Mental Status Sepsis Action Taken by Nursing 01/02/22 15:00 01/02/22 15:41 Temperature Temperature Source Pulse Rate Pulse Rate [Apical] 90 92 H Pulse Rate from SpO2 Sensor Pulse Rhythm Pulse Strength Respiratory Rate 24 20 Respiratory Effort / Characteristics Respiratory Depth Respiratory Pattern Blood Pressure Blood Pressure [Left Arm] 139/88 168/68 H Blood Pressure Mean Blood Pressure Mean [Left Arm] 105 101 Blood Pressure Position Pulse Oximetry 95 94 Oxygen Delivery Method Room Air Room Air Sepsis Recent Fever Within 48 Hours Sepsis New/Unexplained Change in Mental Status Sepsis Action Taken by Snf Medications Current Medication List: was personally reviewed by me Laboratory Data Attestation: I reviewed the patient's lab results. Result diagrams: 01/02/22 09:28 01/02/22 13:07 Lab Results 01/02/22 01/02/22 01/02/22 Range/Units 09:28 09:28 09:28 WBC 13.83 H (4.8-10.8) K/uL RBC 4.48 (4.2-5.4) M/uL Hgb 14.2 (12.0-16.0) g/dL Hct 43.1 (37-47) % MCV 96.2 (80-100) fL MCH 31.7 (25-34) pg MCHC 32.9 (32-36) g/dL Plt Count 232 (130-400) K/uL Immature Gran % (Auto) 0.3 % Neut % (Auto) 79.1 % Lymph % (Auto) 11.4 % [place] % (Auto) 7.5 % Eos % (Auto) 1.5 % Baso % (Auto) 0.2 % Neut # (Auto) 10.93 H (1.4-6.5) K/uL Lymph # (Auto) 1.58 (1.2-3.4) K/uL [place] # (Auto) 1.04 H (0.11-0.59) K/uL Eos # (Auto) 0.21 (0-0.5) K/uL Baso # (Auto) 0.03 (0-0.2) K/uL Immature Gran # (Auto) 0.04 H (0.00-0.02) K/uL PT 11.4 (9.0-12.0) Seconds INR 1.1 (0.9-1.1) APTT 25.6 (21.0-31.0) Seconds PTT Ratio 0.9 D-Dimer 1160 H* (0-500) ug/L FEU VBG pH (7.36-7.41) VBG pCO2 (38-50) mmHg VBG pO2 mmHg VBG HCO3 mmol/L VBG O2 Saturation % VBG Base Excess mEq/L Barometric Pressure mm/Hg Sodium (136-145) mmol/L Potassium Chloride (98-107) mmol/L Carbon Dioxide (21-32) mmol/L Anion Gap (3-11) BUN (6-23) mg/dl Creatinine (0.6-1.2) mg/dl Est Cr Clr Drug Dosing ml/min Est GFR ( Amer) ml/min Est GFR (Non-Af Amer) ml/min BUN/Creatinine Ratio (10-20) Glucose (70-99(Fasting)) mg/dl Lactate (0.4-2.0) mmol/L Calcium (8.5-10.1) mg/dl Magnesium (1.7-2.4) mg/dl Total Bilirubin (0.2-1.0) mg/dl AST ALT (7-52) U/L Alkaline Phosphatase (34-104) U/L Troponin I High Sens 66.3 H* (0-14) pg/ml C-Reactive Protein (0-0.5) mg/dl Total Protein (6.0-8.3) gm/dl Albumin (3.4-5.0) gm/dl Globulin (2.5-4.0) gm/dl Albumin/Globulin Ratio (0.9-2) Procalcitonin (0-0.5) ng/ml Urine Color Urine Appearance (Clear) Urine pH (4.5-7.5) Ur Specific [place] (1.000-1.030) Urine Protein (Negative) Urine Glucose (UA) (Negative) Urine Ketones (Negative) Urine Blood (Negative) Urine Nitrite (Negative) Urine Bilirubin (Negative) Urine Urobilinogen (Negative) Ur Leukocyte Esterase (Negative) Urine WBC (Auto) (0-5) /hpf Urine RBC (Auto) (0-4) /hpf U Hyaline Cast (Auto) (0-5) /lpf U Epithel Cells (Auto) (0-5) /lpf Urine Bacteria (Auto) (Negative) SARS-CoV-2 (PCR) (Negative) Influenza Type A (PCR) (Neg) Influenza Type B (PCR) (Neg) RSV (RT-PCR) (Neg) 01/02/22 01/02/22 01/02/22 Range/Units 09:28 09:28 09:35 WBC (4.8-10.8) K/uL RBC (4.2-5.4) M/uL Hgb (12.0-16.0) g/dL Hct (37-47) % MCV (80-100) fL MCH (25-34) pg MCHC (32-36) g/dL Plt Count (130-400) K/uL Immature Gran % (Auto) % Neut % (Auto) % Lymph % (Auto) % [place] % (Auto) % Eos % (Auto) % Baso % (Auto) % Neut # (Auto) (1.4-6.5) K/uL Lymph # (Auto) (1.2-3.4) K/uL [place] # (Auto) (0.11-0.59) K/uL Eos # (Auto) (0-0.5) K/uL Baso # (Auto) (0-0.2) K/uL Immature Gran # (Auto) (0.00-0.02) K/uL PT (9.0-12.0) Seconds INR (0.9-1.1) APTT (21.0-31.0) Seconds PTT Ratio D-Dimer (0-500) ug/L FEU VBG pH (7.36-7.41) VBG pCO2 (38-50) mmHg VBG pO2 mmHg VBG HCO3 mmol/L VBG O2 Saturation % VBG Base Excess mEq/L Barometric Pressure mm/Hg Sodium 138 (136-145) mmol/L Potassium TNP Chloride 103 (98-107) mmol/L Carbon Dioxide 24 (21-32) mmol/L Anion Gap 11 (3-11) BUN 20 (6-23) mg/dl Creatinine 1.13 (0.6-1.2) mg/dl Est Cr Clr Drug Dosing 33.8 ml/min Est GFR ( Amer) 51.0 ml/min Est GFR (Non-Af Amer) 44.0 ml/min BUN/Creatinine Ratio 17.7 (10-20) Glucose 173 H (70-99(Fasting)) mg/dl Lactate (0.4-2.0) mmol/L Calcium 9.2 (8.5-10.1) mg/dl Magnesium 1.6 L (1.7-2.4) mg/dl Total Bilirubin 0.9 (0.2-1.0) mg/dl AST TNP ALT 12 (7-52) U/L Alkaline Phosphatase 96 (34-104) U/L Troponin I High Sens (0-14) pg/ml C-Reactive Protein (0-0.5) mg/dl Total Protein 7.2 (6.0-8.3) gm/dl Albumin 3.8 (3.4-5.0) gm/dl Globulin 3.4 (2.5-4.0) gm/dl Albumin/Globulin Ratio 1.1 (0.9-2) Procalcitonin 0.07 (0-0.5) ng/ml Urine Color Urine Appearance (Clear) Urine pH (4.5-7.5) Ur Specific [place] (1.000-1.030) Urine Protein (Negative) Urine Glucose (UA) (Negative) Urine Ketones (Negative) Urine Blood (Negative) Urine Nitrite (Negative) Urine Bilirubin (Negative) Urine Urobilinogen (Negative) Ur Leukocyte Esterase (Negative) Urine WBC (Auto) (0-5) /hpf Urine RBC (Auto) (0-4) /hpf U Hyaline Cast (Auto) (0-5) /lpf U Epithel Cells (Auto) (0-5) /lpf Urine Bacteria (Auto) (Negative) SARS-CoV-2 (PCR) POSITIVE A* (Negative) Influenza Type A (PCR) Negative (Neg) Influenza Type B (PCR) Negative (Neg) RSV (RT-PCR) Negative (Neg) 01/02/22 01/02/22 01/02/22 Range/Units 10:07 10:07 11:31 WBC (4.8-10.8) K/uL RBC (4.2-5.4) M/uL Hgb (12.0-16.0) g/dL Hct (37-47) % MCV (80-100) fL MCH (25-34) pg MCHC (32-36) g/dL Plt Count (130-400) K/uL Immature Gran % (Auto) % Neut % (Auto) % Lymph % (Auto) % [place] % (Auto) % Eos % (Auto) % Baso % (Auto) % Neut # (Auto) (1.4-6.5) K/uL Lymph # (Auto) (1.2-3.4) K/uL [place] # (Auto) (0.11-0.59) K/uL Eos # (Auto) (0-0.5) K/uL Baso # (Auto) (0-0.2) K/uL Immature Gran # (Auto) (0.00-0.02) K/uL PT (9.0-12.0) Seconds INR (0.9-1.1) APTT (21.0-31.0) Seconds PTT Ratio D-Dimer Cancelled (0-500) ug/L FEU VBG pH 7.43 H (7.36-7.41) VBG pCO2 38 (38-50) mmHg VBG pO2 32 mmHg VBG HCO3 25 mmol/L VBG O2 Saturation < 60.0 % VBG Base Excess 0.6 mEq/L Barometric Pressure 734.2 mm/Hg Sodium (136-145) mmol/L Potassium Chloride (98-107) mmol/L Carbon Dioxide (21-32) mmol/L Anion Gap (3-11) BUN (6-23) mg/dl Creatinine (0.6-1.2) mg/dl Est Cr Clr Drug Dosing ml/min Est GFR ( Amer) ml/min Est GFR (Non-Af Amer) ml/min BUN/Creatinine Ratio (10-20) Glucose (70-99(Fasting)) mg/dl Lactate 1.4 (0.4-2.0) mmol/L Calcium (8.5-10.1) mg/dl Magnesium (1.7-2.4) mg/dl Total Bilirubin (0.2-1.0) mg/dl AST ALT (7-52) U/L Alkaline Phosphatase (34-104) U/L Troponin I High Sens (0-14) pg/ml C-Reactive Protein (0-0.5) mg/dl Total Protein (6.0-8.3) gm/dl Albumin (3.4-5.0) gm/dl Globulin (2.5-4.0) gm/dl Albumin/Globulin Ratio (0.9-2) Procalcitonin (0-0.5) ng/ml Urine Color Urine Appearance (Clear) Urine pH (4.5-7.5) Ur Specific [place] (1.000-1.030) Urine Protein (Negative) Urine Glucose (UA) (Negative) Urine Ketones (Negative) Urine Blood (Negative) Urine Nitrite (Negative) Urine Bilirubin (Negative) Urine Urobilinogen (Negative) Ur Leukocyte Esterase (Negative) Urine WBC (Auto) (0-5) /hpf Urine RBC (Auto) (0-4) /hpf U Hyaline Cast (Auto) (0-5) /lpf U Epithel Cells (Auto) (0-5) /lpf Urine Bacteria (Auto) (Negative) SARS-CoV-2 (PCR) (Negative) Influenza Type A (PCR) (Neg) Influenza Type B (PCR) (Neg) RSV (RT-PCR) (Neg) 01/02/22 01/02/22 01/02/22 Range/Units 11:31 11:43 13:07 WBC (4.8-10.8) K/uL RBC (4.2-5.4) M/uL Hgb (12.0-16.0) g/dL Hct (37-47) % MCV (80-100) fL MCH (25-34) pg MCHC (32-36) g/dL Plt Count (130-400) K/uL Immature Gran % (Auto) % Neut % (Auto) % Lymph % (Auto) % [place] % (Auto) % Eos % (Auto) % Baso % (Auto) % Neut # (Auto) (1.4-6.5) K/uL Lymph # (Auto) (1.2-3.4) K/uL [place] # (Auto) (0.11-0.59) K/uL Eos # (Auto) (0-0.5) K/uL Baso # (Auto) (0-0.2) K/uL Immature Gran # (Auto) (0.00-0.02) K/uL PT (9.0-12.0) Seconds INR (0.9-1.1) APTT (21.0-31.0) Seconds PTT Ratio D-Dimer (0-500) ug/L FEU VBG pH (7.36-7.41) VBG pCO2 (38-50) mmHg VBG pO2 mmHg VBG HCO3 mmol/L VBG O2 Saturation % VBG Base Excess mEq/L Barometric Pressure mm/Hg Sodium (136-145) mmol/L Potassium Cancelled 3.9 Chloride (98-107) mmol/L Carbon Dioxide (21-32) mmol/L Anion Gap (3-11) BUN (6-23) mg/dl Creatinine (0.6-1.2) mg/dl Est Cr Clr Drug Dosing ml/min Est GFR ( Amer) ml/min Est GFR (Non-Af Amer) ml/min BUN/Creatinine Ratio (10-20) Glucose (70-99(Fasting)) mg/dl Lactate (0.4-2.0) mmol/L Calcium (8.5-10.1) mg/dl Magnesium (1.7-2.4) mg/dl Total Bilirubin (0.2-1.0) mg/dl AST Cancelled 14 ALT (7-52) U/L Alkaline Phosphatase (34-104) U/L Troponin I High Sens 61.2 H* (0-14) pg/ml C-Reactive Protein (0-0.5) mg/dl Total Protein (6.0-8.3) gm/dl Albumin (3.4-5.0) gm/dl Globulin (2.5-4.0) gm/dl Albumin/Globulin Ratio (0.9-2) Procalcitonin (0-0.5) ng/ml Urine Color Dark Yellow Urine Appearance Cloudy A (Clear) Urine pH 5.0 (4.5-7.5) Ur Specific [place] 1.032 H (1.000-1.030) Urine Protein 3+ H (Negative) Urine Glucose (UA) Negative (Negative) Urine Ketones 1+ H (Negative) Urine Blood 2+ H (Negative) Urine Nitrite Negative (Negative) Urine Bilirubin Negative (Negative) Urine Urobilinogen Negative (Negative) Ur Leukocyte Esterase Trace H (Negative) Urine WBC (Auto) >30 H (0-5) /hpf Urine RBC (Auto) 0-4 (0-4) /hpf U Hyaline Cast (Auto) 10-30 H (0-5) /lpf U Epithel Cells (Auto) 20-30 H (0-5) /lpf Urine Bacteria (Auto) 4+ H (Negative) SARS-CoV-2 (PCR) (Negative) Influenza Type A (PCR) (Neg) Influenza Type B (PCR) (Neg) RSV (RT-PCR) (Neg) 01/02/22 Range/Units 13:07 WBC (4.8-10.8) K/uL RBC (4.2-5.4) M/uL Hgb (12.0-16.0) g/dL Hct (37-47) % MCV (80-100) fL MCH (25-34) pg MCHC (32-36) g/dL Plt Count (130-400) K/uL Immature Gran % (Auto) % Neut % (Auto) % Lymph % (Auto) % [place] % (Auto) % Eos % (Auto) % Baso % (Auto) % Neut # (Auto) (1.4-6.5) K/uL Lymph # (Auto) (1.2-3.4) K/uL [place] # (Auto) (0.11-0.59) K/uL Eos # (Auto) (0-0.5) K/uL Baso # (Auto) (0-0.2) K/uL Immature Gran # (Auto) (0.00-0.02) K/uL PT (9.0-12.0) Seconds INR (0.9-1.1) APTT (21.0-31.0) Seconds PTT Ratio D-Dimer (0-500) ug/L FEU VBG pH (7.36-7.41) VBG pCO2 (38-50) mmHg VBG pO2 mmHg VBG HCO3 mmol/L VBG O2 Saturation % VBG Base Excess mEq/L Barometric Pressure mm/Hg Sodium (136-145) mmol/L Potassium Chloride (98-107) mmol/L Carbon Dioxide (21-32) mmol/L Anion Gap (3-11) BUN (6-23) mg/dl Creatinine (0.6-1.2) mg/dl Est Cr Clr Drug Dosing ml/min Est GFR ( Amer) ml/min Est GFR (Non-Af Amer) ml/min BUN/Creatinine Ratio (10-20) Glucose (70-99(Fasting)) mg/dl Lactate (0.4-2.0) mmol/L Calcium (8.5-10.1) mg/dl Magnesium (1.7-2.4) mg/dl Total Bilirubin (0.2-1.0) mg/dl AST ALT (7-52) U/L Alkaline Phosphatase (34-104) U/L Troponin I High Sens (0-14) pg/ml C-Reactive Protein 6.04 H (0-0.5) mg/dl Total Protein (6.0-8.3) gm/dl Albumin (3.4-5.0) gm/dl Globulin (2.5-4.0) gm/dl Albumin/Globulin Ratio (0.9-2) Procalcitonin (0-0.5) ng/ml Urine Color Urine Appearance (Clear) Urine pH (4.5-7.5) Ur Specific [place] (1.000-1.030) Urine Protein (Negative) Urine Glucose (UA) (Negative) Urine Ketones (Negative) Urine Blood (Negative) Urine Nitrite (Negative) Urine Bilirubin (Negative) Urine Urobilinogen (Negative) Ur Leukocyte Esterase (Negative) Urine WBC (Auto) (0-5) /hpf Urine RBC (Auto) (0-4) /hpf U Hyaline Cast (Auto) (0-5) /lpf U Epithel Cells (Auto) (0-5) /lpf Urine Bacteria (Auto) (Negative) SARS-CoV-2 (PCR) (Negative) Influenza Type A (PCR) (Neg) Influenza Type B (PCR) (Neg) RSV (RT-PCR) (Neg) Administered Medications Discontinued Medications Albuterol (Albut/Ipratrop 3mg/0.5mg Neb 3 Ml Vial) 3 ml NEB NOW STA; Protocol Stop: 01/02/22 09:29 Last Admin: 01/02/22 09:43 Dose: 3 ml Documented by: [id number] Dexamethasone Sodium Phosphate (DexamethasonePf 10 Mg/Ml Vial) 10 mg IV NOW ONE Stop: 01/02/22 10:59 Last Admin: 01/02/22 11:28 Dose: 10 mg Documented by: [id number] Diphenhydramine HCl (Diphenhydramine 50 Mg/Ml Vial) 25 mg IV NOW STA Stop: 01/02/22 12:36 Last Admin: 01/02/22 14:09 Dose: 25 mg Documented by: [id number] Ceftriaxone Sodium (Rocephin) 1,000 mg in 50 mls @ 100 mls/hr IV NOW STA Stop: 01/02/22 15:44 Last Admin: 01/02/22 15:37 Dose: 100 mls/hr Documented by: [id number] Ioversol (Optiray 320 125ml) 120 ml IV ONCE ONE Stop: 01/02/22 14:32 Last Admin: 01/02/22 14:23 Dose: 120 ml Documented by: [id number] Imaging Data Radiologist's Impression: Chest X-Ray 01/02/22 09:28 XR chest 1V portable CLINICAL HISTORY: SEPSIS COMPARISON STUDY: Chest radiograph September 23, 2019. FINDINGS: No pneumothorax or pleural effusion is noted. Mild to moderate cardiomegaly is noted. This has increased since prior exam. No evidence for pulmonary edema. No consolidation to suggest pneumonia. IMPRESSION: Mild to moderate cardiomegaly, increased since prior exam. No evidence for pulmonary edema. ACT 112: Negative or not required by law. Electronically signed by: Asim Lopez M.D. 01/02/2022 10:03 AM Chest CTA 01/02/22 12:35 CT ANGIOGRAM OF THE CHEST CLINICAL HISTORY: Cough. Chest congestion. Positive Covid test. COMPARISON STUDY: Chest CT dated 09/24/2009. Chest x-ray dated 01/02/2022. TECHNIQUE: Following the IV administration of 120 cc of Optiray 320, CT angiogram of the chest was performed from the upper abdomen to the thoracic inlet utilizing the pulmonary embolus protocol. Images are reviewed in the axial, sagittal, and coronal planes. 3-D MIPS images are created and assessed. IV contrast was administered without complication. A dose lowering technique was utilized adhering to the principles of ALARA. CT DOSE: 568.21 mGy.cm FINDINGS: Thyroid: Imaged portions of the thyroid gland are normal in size and attenuation. Thoracic aorta: There is atherosclerotic calcification of the thoracic aorta, which is normal in caliber and demonstrates bovine variant arch anatomy. No dissection is seen. Pulmonary vasculature: The pulmonary trunk is normal in caliber. There are no filling defects identified in main, lobar, or segmental pulmonary branches to suggest pulmonary embolus. Heart: The heart is enlarged and without pericardial effusion. The coronary arteries and mitral annulus are densely calcified. Lungs and pleural spaces: Evaluation of the lung parenchyma is degraded by motion artifact. There is no airspace consolidation typical for pneumonia or pleural effusion. Scarring/atelectasis is noted at the lung bases. The trachea and central airways are clear. Diffuse peribronchial thickening is observed. Mediastinum: There is no mediastinal lymphadenopathy. Roxanne: Clear. Axillae: There is no axillary lymphadenopathy. Upper abdomen: There is a small hiatal hernia. Partially visualized upper abdominal viscera is otherwise grossly unremarkable. Skeletal structures: The skeletal structures are osteopenic. No lytic or blastic bony lesions are seen. Arthritic change is noted in the shoulders. Spondylotic change is seen throughout the thoracic spine. IMPRESSION: 1. There is no evidence of pulmonary embolus in the main, lobar, or segmental pulmonary arteries. 2. There is no airspace consolidation or pleural effusion. 3. Diffuse peribronchial thickening suggests bronchitis/reactive airway disease. Clinical correlation will be required. 4. Cardiomegaly. 5. Additional findings as above. ACT 112: Negative or not required by law. Electronically signed by: López Guevara M.D. 01/02/2022 2:41 PM Discharge Plan Visit Data Chief Complaint: Cough Stated Complaint: ALESSANDRA TIAN PNEUMONIA, COUGH, CONGESTION ED Provider: Flaquito Bran Discharge Problem: COVID-19 virus infection, ETIENNE (dyspnea on exertion), Urinary tract infection, Elevated troponin I level Patient Disposition: Being Evaluated by Hospitalist Forms Stand Alone Forms: My [employer] Prescriptions Prescriptions: No Action valacyclovir [Valtrex] 500 mg tablet 500 mg PO DAILY RF: 0 ropinirole 12 mg tablet extended release 24 hr 12 mg PO HS Qty: 90 RF: 3 rosuvastatin 40 mg tablet 40 mg PO HS Qty: 90 RF: 3 fluoxetine 20 mg capsule 20 mg PO QPM Qty: 30 RF: 5 losartan 100 mg tablet 100 mg PO QPM Qty: 90 RF: 3 diphenoxylate-atropine 2.5-0.025 mg tablet 1 tab PO TID PRN (Reason: diarrhea) Qty: 90 RF: 0 Basaglar KwikPen U-100 Insulin 100 unit/mL (3 mL) insulin pen 30 unit SQ DAILY Qty: 30 RF: 3 insulin aspart U-100 [Novolog Flexpen U-100 Insulin] 100 unit/mL (3 mL) insulin pen 30 unit subcut DAILY Qty: 30 RF: 3 triamcinolone acetonide 0.1 % cream 1 applic topical DAILY Qty: 453.6 RF: 0 ascorbic acid (vitamin C) 1,000 mg tablet 1 gm PO QAM RF: 0 calcium carbonate 500 mg calcium (1,250 mg) tablet,chewable 500 mg PO HS RF: 0 cholecalciferol (vitamin D3) 1,000 unit capsule 1,000 units PO HS RF: 0 aspirin [Aspirin Low Dose] 81 mg tablet,delayed release (DR/EC) 81 mg PO Q2D Qty: 30 RF: 3 (DME) OneTouch Verio test strips Strip See Rx Instructions .ROUTE .MEDSUPPLY RF: 0 esomeprazole magnesium 40 mg capsule,delayed release(DR/EC) 40 mg PO DAILY RF: 0 (DME) lancets [OneTouch Delica Lancets] 30 gauge misc See Rx Instructions .ROUTE .MEDSUPPLY RF: 0 nitroglycerin 0.4 mg tablet, sublingual 0.4 mg SL Q5M PRN (Reason: chest pain) Qty: 25 RF: 3 promethazine-DM 6.25-15 mg/5 mL syrup 5 ml PO Q6H PRN (Reason: cough) Qty: 473 RF: 1 Referrals Referrals: Flaquito Espinoza MD [Primary Care Provider] - Discharge Problem: Urinary tract infection Qualifiers: Urinary tract infection type: site unspecified Hematuria presence: without hematuria Qualified Code(s): N39.0 - Urinary tract infection, site not specified
[2022-01-02 09:54] LABS: INR 1.1 (0.9-1.1); Partial Thromboplastin Ratio 0.9; Partial Thromboplastin Time 25.6 Seconds (21.0-31.0); Prothrombin Time 11.4 Seconds (9.0-12.0)
[2022-01-02 09:57] LABS: Basophils # (auto) 0.03 K/uL (0-0.2); Basophils % (auto) 0.2 %; Eosinophils # (auto) 0.21 K/uL (0-0.5); Eosinophils % (auto) 1.5 %; Hematocrit (blood only) 43.1 % (37-47); Hemoglobin 14.2 g/dL (12.0-16.0); Immature Granulocytes # (auto) 0.04 K/uL (0.00-0.02); Immature Granulocytes % (auto) 0.3 %; Lymphocytes # (auto) 1.58 K/uL (1.2-3.4); Lymphocytes % (auto) 11.4 %; Mean Corpuscular Hemoglobin 31.7 pg (25-34); Mean Corpuscular Hgb Conc 32.9 g/dL (32-36); Mean Corpuscular Volume 96.2 fL (80-100); Monocytes # (auto) 1.04 K/uL (0.11-0.59); Monocytes % (auto) 7.5 %; Neutrophils # (auto) 10.93 K/uL (1.4-6.5); Neutrophils % (auto) 79.1 %; Platelet Count 232 K/uL (130-400); Red Blood Count 4.48 M/uL (4.2-5.4); White Blood Count 13.83 K/uL (4.8-10.8)
--- NOTE | 2022-01-02 10:06 | XRay Report ---
XR chest 1V portable CLINICAL HISTORY: SEPSIS COMPARISON STUDY: Chest radiograph September 23, 2019. FINDINGS: No pneumothorax or pleural effusion is noted. Mild to moderate cardiomegaly is noted. This has increased since prior exam. No evidence for pulmonary edema. No consolidation to suggest pneumoni a. IMPRESSION: Mild to moderate cardiomegaly, increased since prior exam. No evidence for pulmonary michelle ma. ACT 112: Negative or not required by law. Electronically signed by: Asim Lopez M.D. 01/02/2022 10:03 AM
[2022-01-02 10:36] LABS: Influenza A virus by PCR Negative (Neg); Influenza B virus by PCR Negative (Neg); RSV by PCR Negative (Neg)
[2022-01-02 10:42] LABS: Base Excess VBG 0.6 mEq/L; HCO3 VBG 25 mmol/L; PCO2 VBG 38 mmHg (38-50); PO2 VBG 32 mmHg; pH VBG 7.43 (7.36-7.41)
[2022-01-02 10:55] LABS: Oxygen Saturation VBG < 60.0 %
[2022-01-02 10:57] LABS: SARS CoV2 RNA(COVID-19) InHosp POSITIVE (Negative)
[2022-01-02] MEDS ORDERED: dexAMETHasone**PF** 10 MG/ML VIAL IV ONE (10:58)
[2022-01-02 11:16] LABS: Alanine Aminotransferase 12 U/L (7-52); Albumin Globulin Ratio 1.1 (0.9-2); Albumin Level 3.8 gm/dl (3.4-5.0); Alkaline Phosphatase 96 U/L (34-104); Anion Gap 11 (3-11); BUN Creatinine Ratio 17.7 (10-20); Bilirubin,Total 0.9 mg/dl (0.2-1.0); Blood Urea Nitrogen 20 mg/dl (6-23); Calcium 9.2 mg/dl (8.5-10.1); Carbon Dioxide 24 mmol/L (21-32); Chloride 103 mmol/L (98-107); Creatinine Clr Calc Pharmacy 33.8 ml/min; Globulin 3.4 gm/dl (2.5-4.0); Glucose 173 mg/dl (70-99(Fasting)); Magnesium 1.6 mg/dl (1.7-2.4); Sodium 138 mmol/L (136-145); Total Protein 7.2 gm/dl (6.0-8.3)
[2022-01-02 12:35] LABS: D Dimer 1160 ug/L FEU (0-500)
[2022-01-02] MEDS ORDERED: diphenhydrAMINE 50 MG/ML VIAL IV STA (12:35)
[2022-01-02 12:57] LABS: Appearance Urine Cloudy (Clear); Bacteria Urine Automated 4+ (Negative); Bilirubin Urine Negative (Negative); Blood Urine 2+ (Negative); Color Urine Dark Yellow; Epithelial Cell Urine Auto 20-30 /lpf (0-5); Glucose Urine UA Negative (Negative); Ketones Urine 1+ (Negative); Leukocyte Esterase Urine Trace (Negative); Nitrite Urine Negative (Negative); Protein Urine 3+ (Negative); RBC Urine Automated 0-4 /hpf (0-4); Specific Gravity Urine 1.032 (1.000-1.030); Urobilinogen Urine Negative (Negative); WBC Urine Automated >30 /hpf (0-5)
[2022-01-02 13:50] LABS: Potassium 3.9 mmol/L (3.5-5.1)
[2022-01-02] MEDS ORDERED: OPTIRAY 320 125ml IV ONE (14:31)
--- NOTE | 2022-01-02 14:43 | CT Scan Report ---
CT ANGIOGRAM OF THE CHEST CLINICAL HISTORY: Cough. Chest congestion. Positive Covid test. COMPARISON STUDY: Chest CT dated 09/24/2009. Chest x-ray dated 01/02/2022. TECHNIQUE: Following the IV administration of 120 cc of Optiray 320, CT angiogram of the chest was pe rformed from the upper abdomen to the thoracic inlet utilizing the pulmonary embolus protocol. Images are reviewed in the axial, sagittal, and coronal planes. 3-D MIPS images are created and assessed. I V contrast was administered without complication. A dose lowering technique was utilized adhering to the principles of ALARA. CT DOSE: 568.21 mGy.cm FINDINGS: Thyroid: Imaged portions of the thyroid gland are normal in size and attenuation. Thoracic aorta: There is atherosclerotic calcification of the thoracic aorta, which is normal in gasper luann and demonstrates bovine variant arch anatomy. No dissection is seen. Pulmonary vasculature: The pulmonary trunk is normal in caliber. There are no filling defects identif ied in main, lobar, or segmental pulmonary branches to suggest pulmonary embolus. Heart: The heart is enlarged and without pericardial effusion. The coronary arteries and mitral annul us are densely calcified. Lungs and pleural spaces: Evaluation of the lung parenchyma is degraded by motion artifact. There is no airspace consolidation typical for pneumonia or pleural effusion. Scarring/atelectasis is noted at the lung bases. The trachea and central airways are clear. Diffuse peribronchial thickening is obser kyra. Mediastinum: There is no mediastinal lymphadenopathy. Roxanne: Clear. Axillae: There is no axillary lymphadenopathy. Upper abdomen: There is a small hiatal hernia. Partially visualized upper abdominal viscera is otherw ise grossly unremarkable. Skeletal structures: The skeletal structures are osteopenic. No lytic or blastic bony lesions are see n. Arthritic change is noted in the shoulders. Spondylotic change is seen throughout the thoracic spi ne. IMPRESSION: 1. There is no evidence of pulmonary embolus in the main, lobar, or segmental pulmonary arteries. 2. There is no airspace consolidation or pleural effusion. 3. Diffuse peribronchial thickening suggests bronchitis/reactive airway disease. Clinical correlation will be required. 4. Cardiomegaly. 5. Additional findings as above. ACT 112: Negative or not required by law. Electronically signed by: López Guevara M.D. 01/02/2022 2:41 PM
[2022-01-02] MEDS ORDERED: cefTRIAXone SODIUM 1,000 MG/50 ML BAG IV STA (15:15)
--- NOTE | 2022-01-02 15:44 | Electrocardiogram Report ---
Test Reason : Blood Pressure : / mmHG Vent. Rate : 084 BPM Atrial Rate : 084 BPM P-R Int : 182 ms QRS Dur : 118 ms QT Int : 420 ms P-R-T Axes : 077 -27 094 degrees QTc Int : 496 ms Normal sinus rhythm Left ventricular hypertrophy with QRS widening and repolarization abnormality Prolonged QT Abnormal ECG When compared with ECG of 06-FEB-2020 10:43, SD interval has decreased Confirmed by Flaquito Biggs ([id number]) on 01/02/2022 3:44:00 PM Referred By: Confirmed By:Flaquito Biggs
--- NOTE | 2022-01-02 16:19 | History & Physical Report ---
Date of Service January 02, 2022 Assessment & Plan (1) Sepsis: Plan: Presents with tachypnea, tachycardia, leukocytosis, and found to have COVID-19 as well as UTI as the source It seems odd that she will have symptomatic COVID-19 just 6 to 7 weeks after she had it in November. Perhaps she has a secondary bacterial acute bronchitis as well as her UTI causing her current symptoms. Perhaps her COVID-19 test is just persistently positive Chest x-ray negative, CT angiogram chest without PE but with evidence of bronchitis With evidence of endorgan damage with elevated troponin, respiratory failure Lactate negative, procalcitonin negative Hemodynamically stable -Admit to PCU for telemetry monitoring given sepsis and history of SVT -Treat with ceftriaxone for UTI as well as add doxycycline for bronchitis and treat COVID-19 as below -Fluids not given due to wanting to avoid volume overload in the setting of COVID-19 -Follow CBC, CMP in the morning -Follow blood cultures, urine culture (2) COVID-19 virus infection: Plan: With wheezing and mild hypoxia with pulse ox 93-94% and significant tachypnea -Dexamethasone started in the ER-continue dexamethasone at 6 mg IV once daily x10-day course -Start Remdesivir x5-day course -Give flutter valve, incentive spirometry -DuoNebs -Follow CBC, CMP, CRP in the morning -Supplemental O2 as needed he pulse ox greater than 90% (3) Acute respiratory failure with hypoxia: Plan: , Secondary to acute bronchitis and COVID-19 Given steroids (4) Hypomagnesemia: Plan: Replace with IV magnesium sulfate Follow level in the morning (5) Urinary tract infection: Plan: Abnormal UA with suprapubic pain Continue ceftriaxone Follow urine culture (6) Elevated troponin I level: Plan: Troponin mildly elevated, no chest pain ECG without ischemic changes Trend serial troponin Likely myocardial demand ischemia in the setting of acute illness and hypoxia (7) Controlled type 2 diabetes mellitus with insulin therapy: Plan: With hyperglycemia secondary to corticosteroids Continue basal bolus insulin ADA diet Check hemoglobin A1c in the morning (8) Acid reflux disease with ulcer: Plan: Continue Protonix (9) Chronic kidney disease, stage 3 (moderate): Plan: Creatinine at baseline -Avoid nephrotoxins -renally dose meds when appropriate -follow BMP (10) Complex sleep apnea syndrome: Plan: Ordered CPAP for her at bedtime (11) Depression: Plan: Continue home fluoxetine (12) HTN (hypertension): Plan: Blood pressures are controlled Continue home losartan (13) Restless legs syndrome: Plan: Follows with sleep medicine Continue ropinirole (14) Dyslipidemia: Plan: Continue statin (15) Esophageal dysmotility: Plan: Noted (16) SVT (supraventricular tachycardia): Plan: History of isolated SVT requiring cardioversion Follows with cardiology Not on AV cal blockers (17) Zoster ophthalmicus: Plan: History of recurrence x3 Remain on valacyclovir for prophylaxis daily Plan: DVT prophylaxis-Lovenox, SCDs Disposition-admit to medical floor telemetry DNR/DNI as discussed with patient and her at the bedside History of Present Illness Chief Complaint: Cough, fever, shortness of breath Primary Care Provider: Flaquito Espinoza MD This patient is an 86-year-old female with a history of DM2, HTN, isolated SVT, GERD/esophageal dysmotility, chronic lower back pain, CKD stage III, MITZY on CPAP, RLS, hyperlipidemia, who presents to the ER with cough, dyspnea on exertion, fever, and wheezing. She has a productive cough and had 1 episode of emesis. In the ER, she was found to be COVID-19 positive, have significant tachypnea with minimal exertion, and wheezing. Her pulse ox at the lowest was 93%. A CT angiogram of the chest was performed which was negative for PE or consolidation or pleural effusion, but did show diffuse peribronchial thickening suggestive of bronchitis/reactive airway disease. She was afebrile and hypertensive and tachypneic with occasional tachycardia in the ER. Her WBC count was elevated and she was also found to have a UTI. She was complaining of some suprapubic abdominal pain as well. In the ER, she was given a DuoNeb treatment, 10 mg of IV dexamethasone, IV Benadryl, and a dose of IV Rocephin for her UTI. She will be admitted for COVID-19 with bronchitis, mild hypoxia, UTI. Allergies Allergy/AdvReac Type Severity Reaction Status Date / Time valdecoxib Allergy Severe DYSPNEA, Verified 01/02/22 16:34 HAS TOLERATED TORADOL hydrochlorothiazide Allergy Intermediate itching Verified 01/02/22 16:34 [From Dyazide] Iodinated Contrast Media Allergy Intermediate RASH Verified 01/02/22 16:34 triamterene [From Dyazide] Allergy Intermediate itching Verified 01/02/22 16:34 adhesive Allergy Mild CLOTH Verified 01/02/22 16:34 ADHESIVE/BANDAIDS-RASH metformin Allergy Mild Diarrhea Verified 01/02/22 16:34 Home Medications Medication Instructions Recorded Confirmed Type cholecalciferol (vitamin D3) 25 1,000 units PO HS 03/14/19 01/02/22 History mcg (1,000 unit) capsule ascorbic acid (vitamin C) 1,000 mg 1 gm PO QAM tab 05/16/19 01/02/22 History tablet calcium carbonate 500 mg calcium 500 mg PO HS tab 05/16/19 01/02/22 History (1,250 mg) chewable tablet aspirin 81 mg tablet,delayed 81 mg PO Q2D #30 tab 03/29/21 01/02/22 Rx release (Aspirin Low Dose) ropinirole 12 mg tablet,extended 12 mg PO HS #90 tab 04/04/21 01/02/22 Rx release 24 hr valacyclovir 500 mg tablet 500 mg PO DAILY 05/09/21 01/02/22 History (Valtrex) blood sugar diagnostic ([facility] 05/12/21 01/02/22 History Verio test strips) esomeprazole magnesium 40 mg 40 mg PO DAILY cap 05/12/21 01/02/22 History capsule,delayed release lancets 30 gauge ([facility] ea 05/12/21 01/02/22 History Lancets) triamcinolone acetonide 0.1 % 1 applic TOPICAL DAILY #453.6 g 06/23/21 01/02/22 Rx topical cream rosuvastatin 40 mg tablet 40 mg PO HS #90 tab 07/27/21 01/02/22 Rx fluoxetine 20 mg capsule 20 mg PO QPM #30 cap 08/08/21 01/02/22 Rx nitroglycerin 0.4 mg sublingual 0.4 mg SL Q5M PRN #25 tab 10/11/21 01/02/22 Rx tablet losartan 100 mg tablet 100 mg PO QPM #90 tab 11/29/21 01/02/22 Rx diphenoxylate-atropine 2.5 1 tab PO TID PRN #90 tab 12/12/21 01/02/22 Rx mg-0.025 mg tablet insulin aspart U-100 100 unit/mL 3 unit SUBCUT .QAM UD 01/02/22 01/02/22 History (3 mL) subcutaneous pen (Novolog Flexpen U-100 Insulin aspart) insulin aspart U-100 100 unit/mL 5 unit SUBCUT .QLUNCH UD 01/02/22 01/02/22 History (3 mL) subcutaneous pen (Novolog Flexpen U-100 Insulin aspart) insulin aspart U-100 100 unit/mL 8 unit SUBCUT .QSUPPER 01/02/22 01/02/22 History (3 mL) subcutaneous pen (Novolog Flexpen U-100 Insulin aspart) insulin glargine 100 unit/mL (3 11 unit SQ BID 01/02/22 01/02/22 History mL) subcutaneous pen (Basaglar KwikPen U-100 Insulin) Past Med/Surg History Medical History (Updated 01/03/22 @ 00:04 by Josephine Gambino MD) Anxiety Chronic kidney disease, stage 3 Follows with neprho- stable- baseline creat 1.3 since February 2010 Chronic low back pain Chronic SI joint pain Diabetes mellitus, type 2 Follows with endo DSAP (disseminated superficial actinic porokeratosis) Dyslipidemia Dysphagia Esophageal dysmotility GERD (gastroesophageal reflux disease) Hyperlipidemia Hypertension Restless leg syndrome Sensory hearing loss, bilateral Sleep apnea cpap Spinal stenosis Zoster ophthalmicus Surgical History History of arthroscopy of right knee History of bilateral cataract extraction History of bilateral tubal ligation History of bladder surgery bladder tuck x2 History of cardiac cath 1997 @ [facility] [place] no stent--d/t heart failure History of carpal tunnel release of both wrists History of colonoscopy History of dilatation and curettage History of elbow surgery LEFT/RT History of esophageal dilatation History of esophagogastroduodenoscopy (EGD) History of left breast biopsy benign History of lumbar spinal fusion History of lumpectomy of left breast benign History of open reduction and internal fixation (ORIF) procedure right leg--hardware in place History of right breast biopsy benign History of surgical procedure on mouth removed benign tissue from lower jaw History of toe surgery big toe History of tonsillectomy and adenoidectomy History of tooth extraction all teeth removed History of total hysterectomy with bilateral salpingo-oophorectomy (BSO) History of total left knee replacement (TKR) x2 History of total right knee replacement (TKR) x2 Hx of repair of left rotator cuff x2 Hx of repair of right rotator cuff S/P appendectomy S/P exploratory laparotomy Family History Mother Heart disease Myocardial infarction Family/Other Arthritis Father Asthma Sister Ovarian cancer Heart disease Family history of diabetes mellitus Sister Family history of diabetes mellitus Other No family history of adverse response to anesthesia Denies family history of Prostate cancer Kidney disease Breast cancer Colorectal cancer Social History Smoking Status: Never smoker Second Hand Exposure: Yes ( SMOKED IN THE PAST); Do You Dip or Chew Tobacco: No; Hx Alcohol Use: No Hx Substance Use: No Preferred Language: Malawian Communication Ability: Effective Framing Manager Required: No Beliefs That Will Affect Care: None marital status: Current Living Situation: Spouse current occupational status: retired Other Information That Helps Us Care for You: No Feels Safe at Home: Yes Safety Concerns: Feels Safe At This Time Childhood Exposure to Second-Hand Smoke: Yes Dental Care, Regularly: No Physical Activity Frequency: Does not Exercise Seatbelt Use: always Sunscreen Use: Yes Assistive Devices: Cane, CPAP, Denture - Upper, Denture - Lower, Glasses, Hearing Aid - Bilateral and Walker Review of Systems Review of Systems: All systems reviewed & are unremarkable except as noted in HPI & below Physical Exam Constitutional: WD/WN, vitals as above Eyes: PERRL, conjunctivae normal, anicteric sclerae ENMT: external ear and nose normal, oropharynx normal Neck: trachea midline, no thyromegaly Respiratory: normal respiratory effort, lungs clear to auscultation (With occasional wheeze) Cardiovascular: RRR, no murmur, no edema Chest (Breasts): Chest: normal inspection of chest Gastrointestinal (Abdomen): normal bowel sounds, soft, nontender, no hepatosplenomegaly (With mild suprapubic tenderness without guarding or rebound) Musculoskeletal: Extremities: extremities normal to inspection; no cyanosis and no clubbing Skin: no rashes, warm and dry Neurologic: moves all extremities and awake; no focal motor deficits Psychiatric: A+Ox3, euthymic affect Lymphatic: no lymphedema Results & Data Results & Data ([facility]) Vital Signs (Past 12 Hours) Vital Signs Temp Pulse Pulse Resp BP BP Pulse Ox 01/02/22 15:41 92 H 20 168/68 H 94 01/02/22 15:00 90 24 139/88 95 01/02/22 13:00 79 26 H 142/91 H 95 01/02/22 11:05 71 21 138/90 97 01/02/22 10:00 85 20 93 01/02/22 09:39 79 20 97 01/02/22 09:36 80 20 184/78 H 95 01/02/22 09:34 80 20 184/78 H 94 01/02/22 09:30 83 22 94 01/02/22 09:20 83 24 95 01/02/22 09:09 36.9 C 88 22 183/73 H 96 Laboratory Results 01/02/22 01/02/22 01/02/22 Range/Units 13:07 13:07 11:43 WBC (4.8-10.8) K/uL RBC (4.2-5.4) M/uL Hgb (12.0-16.0) g/dL Hct (37-47) % MCV (80-100) fL MCH (25-34) pg MCHC (32-36) g/dL Plt Count (130-400) K/uL Immature Gran % (Auto) % Neut % (Auto) % Lymph % (Auto) % [place] % (Auto) % Eos % (Auto) % Baso % (Auto) % Neut # (Auto) (1.4-6.5) K/uL Lymph # (Auto) (1.2-3.4) K/uL [place] # (Auto) (0.11-0.59) K/uL Eos # (Auto) (0-0.5) K/uL Baso # (Auto) (0-0.2) K/uL Immature Gran # (Auto) (0.00-0.02) K/uL PT (9.0-12.0) Seconds INR (0.9-1.1) APTT (21.0-31.0) Seconds PTT Ratio D-Dimer (0-500) ug/L FEU VBG pH (7.36-7.41) VBG pCO2 (38-50) mmHg VBG pO2 mmHg VBG HCO3 mmol/L VBG O2 Saturation % VBG Base Excess mEq/L Barometric Pressure mm/Hg Sodium (136-145) mmol/L Potassium 3.9 Chloride (98-107) mmol/L Carbon Dioxide (21-32) mmol/L Anion Gap (3-11) BUN (6-23) mg/dl Creatinine (0.6-1.2) mg/dl Est Cr Clr Drug Dosing ml/min Est GFR ( Amer) ml/min Est GFR (Non-Af Amer) ml/min BUN/Creatinine Ratio (10-20) Glucose (70-99(Fasting)) mg/dl Lactate (0.4-2.0) mmol/L Calcium (8.5-10.1) mg/dl Magnesium (1.7-2.4) mg/dl Total Bilirubin (0.2-1.0) mg/dl AST 14 ALT (7-52) U/L Alkaline Phosphatase (34-104) U/L Troponin I High Sens (0-14) pg/ml C-Reactive Protein 6.04 H (0-0.5) mg/dl Total Protein (6.0-8.3) gm/dl Albumin (3.4-5.0) gm/dl Globulin (2.5-4.0) gm/dl Albumin/Globulin Ratio (0.9-2) Procalcitonin (0-0.5) ng/ml Urine Color Dark Yellow Urine Appearance Cloudy A (Clear) Urine pH 5.0 (4.5-7.5) Ur Specific Energy 1.032 H (1.000-1.030) Urine Protein 3+ H (Negative) Urine Glucose (UA) Negative (Negative) Urine Ketones 1+ H (Negative) Urine Blood 2+ H (Negative) Urine Nitrite Negative (Negative) Urine Bilirubin Negative (Negative) Urine Urobilinogen Negative (Negative) Ur Leukocyte Esterase Trace H (Negative) Urine WBC (Auto) >30 H (0-5) /hpf Urine RBC (Auto) 0-4 (0-4) /hpf U Hyaline Cast (Auto) 10-30 H (0-5) /lpf U Epithel Cells (Auto) 20-30 H (0-5) /lpf Urine Bacteria (Auto) 4+ H (Negative) SARS-CoV-2 (PCR) (Negative) Influenza Type A (PCR) (Neg) Influenza Type B (PCR) (Neg) RSV (RT-PCR) (Neg) 01/02/22 01/02/22 01/02/22 Range/Units 11:31 11:31 10:07 WBC (4.8-10.8) K/uL RBC (4.2-5.4) M/uL Hgb (12.0-16.0) g/dL Hct (37-47) % MCV (80-100) fL MCH (25-34) pg MCHC (32-36) g/dL Plt Count (130-400) K/uL Immature Gran % (Auto) % Neut % (Auto) % Lymph % (Auto) % [place] % (Auto) % Eos % (Auto) % Baso % (Auto) % Neut # (Auto) (1.4-6.5) K/uL Lymph # (Auto) (1.2-3.4) K/uL [place] # (Auto) (0.11-0.59) K/uL Eos # (Auto) (0-0.5) K/uL Baso # (Auto) (0-0.2) K/uL Immature Gran # (Auto) (0.00-0.02) K/uL PT (9.0-12.0) Seconds INR (0.9-1.1) APTT (21.0-31.0) Seconds PTT Ratio D-Dimer Cancelled (0-500) ug/L FEU VBG pH 7.43 H (7.36-7.41) VBG pCO2 38 (38-50) mmHg VBG pO2 32 mmHg VBG HCO3 25 mmol/L VBG O2 Saturation < 60.0 % VBG Base Excess 0.6 mEq/L Barometric Pressure 734.2 mm/Hg Sodium (136-145) mmol/L Potassium Cancelled Chloride (98-107) mmol/L Carbon Dioxide (21-32) mmol/L Anion Gap (3-11) BUN (6-23) mg/dl Creatinine (0.6-1.2) mg/dl Est Cr Clr Drug Dosing ml/min Est GFR ( Amer) ml/min Est GFR (Non-Af Amer) ml/min BUN/Creatinine Ratio (10-20) Glucose (70-99(Fasting)) mg/dl Lactate (0.4-2.0) mmol/L Calcium (8.5-10.1) mg/dl Magnesium (1.7-2.4) mg/dl Total Bilirubin (0.2-1.0) mg/dl AST Cancelled ALT (7-52) U/L Alkaline Phosphatase (34-104) U/L Troponin I High Sens 61.2 H* (0-14) pg/ml C-Reactive Protein (0-0.5) mg/dl Total Protein (6.0-8.3) gm/dl Albumin (3.4-5.0) gm/dl Globulin (2.5-4.0) gm/dl Albumin/Globulin Ratio (0.9-2) Procalcitonin (0-0.5) ng/ml Urine Color Urine Appearance (Clear) Urine pH (4.5-7.5) Ur Specific Energy (1.000-1.030) Urine Protein (Negative) Urine Glucose (UA) (Negative) Urine Ketones (Negative) Urine Blood (Negative) Urine Nitrite (Negative) Urine Bilirubin (Negative) Urine Urobilinogen (Negative) Ur Leukocyte Esterase (Negative) Urine WBC (Auto) (0-5) /hpf Urine RBC (Auto) (0-4) /hpf U Hyaline Cast (Auto) (0-5) /lpf U Epithel Cells (Auto) (0-5) /lpf Urine Bacteria (Auto) (Negative) SARS-CoV-2 (PCR) (Negative) Influenza Type A (PCR) (Neg) Influenza Type B (PCR) (Neg) RSV (RT-PCR) (Neg) 01/02/22 01/02/22 01/02/22 Range/Units 10:07 09:35 09:28 WBC (4.8-10.8) K/uL RBC (4.2-5.4) M/uL Hgb (12.0-16.0) g/dL Hct (37-47) % MCV (80-100) fL MCH (25-34) pg MCHC (32-36) g/dL Plt Count (130-400) K/uL Immature Gran % (Auto) % Neut % (Auto) % Lymph % (Auto) % [place] % (Auto) % Eos % (Auto) % Baso % (Auto) % Neut # (Auto) (1.4-6.5) K/uL Lymph # (Auto) (1.2-3.4) K/uL [place] # (Auto) (0.11-0.59) K/uL Eos # (Auto) (0-0.5) K/uL Baso # (Auto) (0-0.2) K/uL Immature Gran # (Auto) (0.00-0.02) K/uL PT (9.0-12.0) Seconds INR (0.9-1.1) APTT (21.0-31.0) Seconds PTT Ratio D-Dimer (0-500) ug/L FEU VBG pH (7.36-7.41) VBG pCO2 (38-50) mmHg VBG pO2 mmHg VBG HCO3 mmol/L VBG O2 Saturation % VBG Base Excess mEq/L Barometric Pressure mm/Hg Sodium (136-145) mmol/L Potassium Chloride (98-107) mmol/L Carbon Dioxide (21-32) mmol/L Anion Gap (3-11) BUN (6-23) mg/dl Creatinine (0.6-1.2) mg/dl Est Cr Clr Drug Dosing ml/min Est GFR ( Amer) ml/min Est GFR (Non-Af Amer) ml/min BUN/Creatinine Ratio (10-20) Glucose (70-99(Fasting)) mg/dl Lactate 1.4 (0.4-2.0) mmol/L Calcium (8.5-10.1) mg/dl Magnesium (1.7-2.4) mg/dl Total Bilirubin (0.2-1.0) mg/dl AST ALT (7-52) U/L Alkaline Phosphatase (34-104) U/L Troponin I High Sens (0-14) pg/ml C-Reactive Protein (0-0.5) mg/dl Total Protein (6.0-8.3) gm/dl Albumin (3.4-5.0) gm/dl Globulin (2.5-4.0) gm/dl Albumin/Globulin Ratio (0.9-2) Procalcitonin 0.07 (0-0.5) ng/ml Urine Color Urine Appearance (Clear) Urine pH (4.5-7.5) Ur Specific Energy (1.000-1.030) Urine Protein (Negative) Urine Glucose (UA) (Negative) Urine Ketones (Negative) Urine Blood (Negative) Urine Nitrite (Negative) Urine Bilirubin (Negative) Urine Urobilinogen (Negative) Ur Leukocyte Esterase (Negative) Urine WBC (Auto) (0-5) /hpf Urine RBC (Auto) (0-4) /hpf U Hyaline Cast (Auto) (0-5) /lpf U Epithel Cells (Auto) (0-5) /lpf Urine Bacteria (Auto) (Negative) SARS-CoV-2 (PCR) POSITIVE A* (Negative) Influenza Type A (PCR) Negative (Neg) Influenza Type B (PCR) Negative (Neg) RSV (RT-PCR) Negative (Neg) 01/02/22 01/02/22 01/02/22 Range/Units 09:28 09:28 09:28 WBC 13.83 H (4.8-10.8) K/uL RBC 4.48 (4.2-5.4) M/uL Hgb 14.2 (12.0-16.0) g/dL Hct 43.1 (37-47) % MCV 96.2 (80-100) fL MCH 31.7 (25-34) pg MCHC 32.9 (32-36) g/dL Plt Count 232 (130-400) K/uL Immature Gran % (Auto) 0.3 % Neut % (Auto) 79.1 % Lymph % (Auto) 11.4 % [place] % (Auto) 7.5 % Eos % (Auto) 1.5 % Baso % (Auto) 0.2 % Neut # (Auto) 10.93 H (1.4-6.5) K/uL Lymph # (Auto) 1.58 (1.2-3.4) K/uL [place] # (Auto) 1.04 H (0.11-0.59) K/uL Eos # (Auto) 0.21 (0-0.5) K/uL Baso # (Auto) 0.03 (0-0.2) K/uL Immature Gran # (Auto) 0.04 H (0.00-0.02) K/uL PT 11.4 (9.0-12.0) Seconds INR 1.1 (0.9-1.1) APTT 25.6 (21.0-31.0) Seconds PTT Ratio 0.9 D-Dimer 1160 H* (0-500) ug/L FEU VBG pH (7.36-7.41) VBG pCO2 (38-50) mmHg VBG pO2 mmHg VBG HCO3 mmol/L VBG O2 Saturation % VBG Base Excess mEq/L Barometric Pressure mm/Hg Sodium 138 (136-145) mmol/L Potassium TNP Chloride 103 (98-107) mmol/L Carbon Dioxide 24 (21-32) mmol/L Anion Gap 11 (3-11) BUN 20 (6-23) mg/dl Creatinine 1.13 (0.6-1.2) mg/dl Est Cr Clr Drug Dosing 33.8 ml/min Est GFR ( Amer) 51.0 ml/min Est GFR (Non-Af Amer) 44.0 ml/min BUN/Creatinine Ratio 17.7 (10-20) Glucose 173 H (70-99(Fasting)) mg/dl Lactate (0.4-2.0) mmol/L Calcium 9.2 (8.5-10.1) mg/dl Magnesium 1.6 L (1.7-2.4) mg/dl Total Bilirubin 0.9 (0.2-1.0) mg/dl AST TNP ALT 12 (7-52) U/L Alkaline Phosphatase 96 (34-104) U/L Troponin I High Sens (0-14) pg/ml C-Reactive Protein (0-0.5) mg/dl Total Protein 7.2 (6.0-8.3) gm/dl Albumin 3.8 (3.4-5.0) gm/dl Globulin 3.4 (2.5-4.0) gm/dl Albumin/Globulin Ratio 1.1 (0.9-2) Procalcitonin (0-0.5) ng/ml Urine Color Urine Appearance (Clear) Urine pH (4.5-7.5) Ur Specific Energy (1.000-1.030) Urine Protein (Negative) Urine Glucose (UA) (Negative) Urine Ketones (Negative) Urine Blood (Negative) Urine Nitrite (Negative) Urine Bilirubin (Negative) Urine Urobilinogen (Negative) Ur Leukocyte Esterase (Negative) Urine WBC (Auto) (0-5) /hpf Urine RBC (Auto) (0-4) /hpf U Hyaline Cast (Auto) (0-5) /lpf U Epithel Cells (Auto) (0-5) /lpf Urine Bacteria (Auto) (Negative) SARS-CoV-2 (PCR) (Negative) Influenza Type A (PCR) (Neg) Influenza Type B (PCR) (Neg) RSV (RT-PCR) (Neg) 01/02/22 Range/Units 09:28 WBC (4.8-10.8) K/uL RBC (4.2-5.4) M/uL Hgb (12.0-16.0) g/dL Hct (37-47) % MCV (80-100) fL MCH (25-34) pg MCHC (32-36) g/dL Plt Count (130-400) K/uL Immature Gran % (Auto) % Neut % (Auto) % Lymph % (Auto) % [place] % (Auto) % Eos % (Auto) % Baso % (Auto) % Neut # (Auto) (1.4-6.5) K/uL Lymph # (Auto) (1.2-3.4) K/uL [place] # (Auto) (0.11-0.59) K/uL Eos # (Auto) (0-0.5) K/uL Baso # (Auto) (0-0.2) K/uL Immature Gran # (Auto) (0.00-0.02) K/uL PT (9.0-12.0) Seconds INR (0.9-1.1) APTT (21.0-31.0) Seconds PTT Ratio D-Dimer (0-500) ug/L FEU VBG pH (7.36-7.41) VBG pCO2 (38-50) mmHg VBG pO2 mmHg VBG HCO3 mmol/L VBG O2 Saturation % VBG Base Excess mEq/L Barometric Pressure mm/Hg Sodium (136-145) mmol/L Potassium Chloride (98-107) mmol/L Carbon Dioxide (21-32) mmol/L Anion Gap (3-11) BUN (6-23) mg/dl Creatinine (0.6-1.2) mg/dl Est Cr Clr Drug Dosing ml/min Est GFR ( Amer) ml/min Est GFR (Non-Af Amer) ml/min BUN/Creatinine Ratio (10-20) Glucose (70-99(Fasting)) mg/dl Lactate (0.4-2.0) mmol/L Calcium (8.5-10.1) mg/dl Magnesium (1.7-2.4) mg/dl Total Bilirubin (0.2-1.0) mg/dl AST ALT (7-52) U/L Alkaline Phosphatase (34-104) U/L Troponin I High Sens 66.3 H* (0-14) pg/ml C-Reactive Protein (0-0.5) mg/dl Total Protein (6.0-8.3) gm/dl Albumin (3.4-5.0) gm/dl Globulin (2.5-4.0) gm/dl Albumin/Globulin Ratio (0.9-2) Procalcitonin (0-0.5) ng/ml Urine Color Urine Appearance (Clear) Urine pH (4.5-7.5) Ur Specific Energy (1.000-1.030) Urine Protein (Negative) Urine Glucose (UA) (Negative) Urine Ketones (Negative) Urine Blood (Negative) Urine Nitrite (Negative) Urine Bilirubin (Negative) Urine Urobilinogen (Negative) Ur Leukocyte Esterase (Negative) Urine WBC (Auto) (0-5) /hpf Urine RBC (Auto) (0-4) /hpf U Hyaline Cast (Auto) (0-5) /lpf U Epithel Cells (Auto) (0-5) /lpf Urine Bacteria (Auto) (Negative) SARS-CoV-2 (PCR) (Negative) Influenza Type A (PCR) (Neg) Influenza Type B (PCR) (Neg) RSV (RT-PCR) (Neg) Diagnostic Findings Chest X-Ray 01/02/22 09:28 XR chest 1V portable CLINICAL HISTORY: SEPSIS COMPARISON STUDY: Chest radiograph September 23, 2019. FINDINGS: No pneumothorax or pleural effusion is noted. Mild to moderate cardiomegaly is noted. This has increased since prior exam. No evidence for pulmonary edema. No consolidation to suggest pneumonia. IMPRESSION: Mild to moderate cardiomegaly, increased since prior exam. No evidence for pulmonary edema. ACT 112: Negative or not required by law. Electronically signed by: Asim Lopez M.D. 01/02/2022 10:03 AM Chest CTA 01/02/22 12:35 CT ANGIOGRAM OF THE CHEST CLINICAL HISTORY: Cough. Chest congestion. Positive Covid test. COMPARISON STUDY: Chest CT dated 09/24/2009. Chest x-ray dated 01/02/2022. TECHNIQUE: Following the IV administration of 120 cc of Optiray 320, CT angiogram of the chest was performed from the upper abdomen to the thoracic inlet utilizing the pulmonary embolus protocol. Images are reviewed in the axial, sagittal, and coronal planes. 3-D MIPS images are created and assessed. IV contrast was administered without complication. A dose lowering technique was utilized adhering to the principles of ALARA. CT DOSE: 568.21 mGy.cm FINDINGS: Thyroid: Imaged portions of the thyroid gland are normal in size and attenuation. Thoracic aorta: There is atherosclerotic calcification of the thoracic aorta, which is normal in caliber and demonstrates bovine variant arch anatomy. No dissection is seen. Pulmonary vasculature: The pulmonary trunk is normal in caliber. There are no filling defects identified in main, lobar, or segmental pulmonary branches to suggest pulmonary embolus. Heart: The heart is enlarged and without pericardial effusion. The coronary arteries and mitral annulus are densely calcified. Lungs and pleural spaces: Evaluation of the lung parenchyma is degraded by motion artifact. There is no airspace consolidation typical for pneumonia or pleural effusion. Scarring/atelectasis is noted at the lung bases. The trachea and central airways are clear. Diffuse peribronchial thickening is observed. Mediastinum: There is no mediastinal lymphadenopathy. Roxanne: Clear. Axillae: There is no axillary lymphadenopathy. Upper abdomen: There is a small hiatal hernia. Partially visualized upper abdominal viscera is otherwise grossly unremarkable. Skeletal structures: The skeletal structures are osteopenic. No lytic or blastic bony lesions are seen. Arthritic change is noted in the shoulders. Spondylotic change is seen throughout the thoracic spine. IMPRESSION: 1. There is no evidence of pulmonary embolus in the main, lobar, or segmental pulmonary arteries. 2. There is no airspace consolidation or pleural effusion. 3. Diffuse peribronchial thickening suggests bronchitis/reactive airway disease. Clinical correlation will be required. 4. Cardiomegaly. 5. Additional findings as above. ACT 112: Negative or not required by law. Electronically signed by: López Guevara M.D. 01/02/2022 2:41 PM ECG Additional Comments: ECG on 01/02/2022 at 9:21 AM with normal sinus rhythm, LVH with QRS widening with repolarization abnormality, prolonged QT at 496, unchanged from previous Code Status & VTE Plan Code Status DNR/DNI VTE Prophylaxis Plan VTE Prophylaxis will be ordered: Yes PG Care Time/CCT Total # of Minutes Spent Total Time Spent with Patient: Total time spent is greater than 50% in coordination of care (as documented) at patient's floor/unit and/or counseling patient: Coding Level of Care Code 19269 Initial Inpt Care Lvl 3 Diagnoses COVID-19 virus infection U07.1 Urinary tract infection N39.0 Hematuria presence: without hematuria Urinary tract infection type: site unspecified Elevated troponin I level R77.8 Controlled type 2 diabetes mellitus with insulin therapy E11.9; Z79.4 SVT (supraventricular tachycardia) I47.1 Acid reflux disease with ulcer K21.9 Chronic kidney disease, stage 3 (moderate) N18.3 Complex sleep apnea syndrome G47.31 Depression F32.9 HTN (hypertension) I10 Restless legs syndrome G25.81 Dyslipidemia E78.5 Esophageal dysmotility K22.4 Acute respiratory failure with hypoxia J96.01 Sepsis A41.9 Hypomagnesemia E83.42 Zoster ophthalmicus B02.30 (1) Urinary tract infection Hematuria presence: without hematuria Urinary tract infection type: site unspecified Qualified Code(s): N39.0 - Urinary tract infection, site not specified
[2022-01-02] MEDS ORDERED: MAGNESIUM SULFATE / D5W 1 GM/100 ML BAG IV STA (17:45)
[2022-01-02] MEDS ORDERED: REMDESIVIR 200 MG in SODIUM CHLORIDE 0.9% 210 ML IV STA (17:45)
[2022-01-02] MEDS ORDERED: DEXTROSE 50% 50 ML SYRINGE IV PRN (21:18)
[2022-01-02] MEDS ORDERED: GLUCAGON FOR INJ 1 MG VIAL SQ PRN (21:18)
[2022-01-02] MEDS ORDERED: ACETAMINOPHEN 325 MG TAB PO PRN (21:18)
[2022-01-02] MEDS ORDERED: GLUCOSE 40% GEL 15 GM TUBE PO PRN (21:18)
[2022-01-02] MEDS ORDERED: PHARMACY GLYCEMIC MGMT CONSULT PRN (21:18)
[2022-01-02] MEDS ORDERED: GLUCOSE 10 TABS/TUBE PO PRN (21:18)
[2022-01-02] MEDS ORDERED: ONDANSETRON INJ 2 MG/ML 2 ML VIAL IV PRN (21:18)
[2022-01-02] MEDS ORDERED: NITROGLYCERIN SL 0.4 MG/TAB TAB SL PRN (21:18)
[2022-01-02] MEDS ORDERED: ENOXAPARIN INJ 40 MG/0.4 ML SYR SQ SCH (21:30)
[2022-01-02] MEDS: ALBUT/IPRATROP 3MG/0.5MG NEB 3 ML VIAL NEB SCH (21:57)
[2022-01-02] MEDS: ROSUVASTATIN CALCIUM 20 MG TAB PO SCH (22:52)
[2022-01-02] MEDS: FLUoxetine HCL 20 MG CAP PO SCH (22:53)
[2022-01-02] MEDS: CHOLECALCIFEROL 1,000 UNITS 25 MCG TAB PO SCH (22:53)
[2022-01-02] MEDS: LOSARTAN POTASSIUM 50 MG TAB PO SCH (22:53)
[2022-01-02] MEDS: CALCIUM CARBONATE 1250MG TAB PO SCH (22:54)
[2022-01-02] MEDS: INSULIN GLARGINE SOLOSTAR 100 UNITS/ML 3 ML PEN SQ SCH (23:12)
[2022-01-02] MEDS: INSULIN ASPART PER UNIT SC SCH (23:26)
[2022-01-02] MEDS ORDERED: INSULIN HUMAN REGULAR PER UNIT 7 UNITS in SYRINGE 0 ML IV ONE (23:30)
[2022-01-03] MEDS: DOXYCYCLINE HYCLATE 100 MG in DEXTROSE 5% 100 ML IV SCH ×2 (01:06→11:55)
[2022-01-03] MEDS: INSULIN ASPART PER UNIT SC SCH ×6 (01:40→22:16)
[2022-01-03] MEDS ORDERED: rOPINIRole HCL 2 MG TABLET PO ONE (02:00)
[2022-01-03] MEDS: ALBUT/IPRATROP 3MG/0.5MG NEB 3 ML VIAL NEB SCH ×4 (07:08→19:44)
[2022-01-03 07:54] LABS: Basophils # (auto) 0.01 K/uL (0-0.2); Basophils % (auto) 0.1 %; Hematocrit (blood only) 42.8 % (37-47); Hemoglobin 14.1 g/dL (12.0-16.0); Immature Granulocytes # (auto) 0.03 K/uL (0.00-0.02); Immature Granulocytes % (auto) 0.2 %; Lymphocytes # (auto) 2.96 K/uL (1.2-3.4); Lymphocytes % (auto) 17.4 %; Mean Corpuscular Hemoglobin 31.7 pg (25-34); Mean Corpuscular Hgb Conc 32.9 g/dL (32-36); Mean Corpuscular Volume 96.2 fL (80-100); Mean Platelet Volume 10.7 fL (7.4-10.4); Monocytes # (auto) 1.65 K/uL (0.11-0.59); Monocytes % (auto) 9.7 %; Neutrophils # (auto) 12.37 K/uL (1.4-6.5); Neutrophils % (auto) 72.6 %; Platelet Count 271 K/uL (130-400); RDW Coefficient of Variation 14.6 % (11.5-14.5); RDW Standard Deviation 51.7 fL (36.4-46.3); Red Blood Count 4.45 M/uL (4.2-5.4); White Blood Count 17.02 K/uL (4.8-10.8)
[2022-01-03 08:15] LABS: BUN Creatinine Ratio 24.8 (10-20); C Reactive Protein 11.89 mg/dl (0-0.5); Calcium 9.7 mg/dl (8.5-10.1); Creatinine Clr Calc Pharmacy 27.1 ml/min; Est GFR (African American) 41.8 ml/min; Est GFR (Non-African American) 36.1 ml/min; Magnesium 2.3 mg/dl (1.7-2.4)
[2022-01-03] MEDS ORDERED: valACYclovir HCL 500 MG TABLET PO SCH (09:00)
[2022-01-03] MEDS ORDERED: INSULIN HUMAN NPH SC SCH (09:00)
[2022-01-03] MEDS: ASCORBIC ACID 500 MG TAB PO SCH (09:22)
[2022-01-03] MEDS: PANTOprazole 40 MG TAB PO SCH (09:22)
[2022-01-03 09:23] LABS: Estimated Average Glucose 192 mg/dl; Hemoglobin A1C 8.3 % (4.5-5.6)
[2022-01-03] MEDS: ASPIRIN 81 MG ECTAB PO SCH (09:23)
[2022-01-03] MEDS: dexAMETHasone 6 MG in SYRINGE 0 ML IV SCH (09:26)
--- NOTE | 2022-01-03 12:47 | Pharmacy Report ---
Pharmacy Glycemic Short Note 2 - Date of Service January 03, 2022 - Glycemic Short BSG Results (Last 24 hours): 01/02/22 01/02/22 01/03/22 22:40 22:43 01:12 Glucose POC Glucose 449 H* 440 H* 445 H* 01/03/22 01/03/22 01/03/22 02:33 04:09 07:28 Glucose 85 POC Glucose 388 H* 301 H* 01/03/22 01/03/22 07:49 11:54 Glucose POC Glucose 95 314 H* OUTPATIENT ANTIDIABETIC REGIMEN: * Lantus 11 units BID; Novolog 3 units breakfast, 5 units lunch, 8 units supper * A1c 8.3% ASSESSMENT: * Patient admitted with COVID infection, started on dexamethasone. * Initial BSG 173 but BSG subsequently tera after dex administration/no insulin until evening. Significantly elevated in the 400s, came down to 95 overnight. * Plan to add NPH with dexamethasone, increase tomorrows dose to 0.4 units/kg as this AM dose was insufficient. * Did hold AM lantus as BSG dropped down to 95 this morning, will resume 11 units BID dosing * Novolog parameters were tightened. Will assess trend for further changes PLAN FOR INPATIENT GLYCEMIC CONTROL: * Hold outpatient oral diabetes medications * Basal insulin * Lantus 11 units SQ BID * NPH 0.4 units/kg with dexamethasone * Bolus insulin * NovoLog per scale ACHS or Q6hrs while NPO * Goal Range: Low 110 mg/dL - High 140 mg/dL * Correction Factor: 20 mg/dL/unit * Nutritional / Prandial insulin per carb ratio of 1 unit per 7 grams CHO consumed
[2022-01-03] MEDS: cefTRIAXone SODIUM 1,000 MG in DEXTROSE 5% 50 ML IV SCH (16:40)
[2022-01-03] MEDS: CALCIUM CARBONATE 1250MG TAB PO SCH (20:46)
[2022-01-03] MEDS: CHOLECALCIFEROL 1,000 UNITS 25 MCG TAB PO SCH (20:46)
[2022-01-03] MEDS: REMDESIVIR 100 MG in SODIUM CHLORIDE 0.9% 230 ML IV SCH (20:46)
[2022-01-03] MEDS: FLUoxetine HCL 20 MG CAP PO SCH (20:48)
[2022-01-03] MEDS: LOSARTAN POTASSIUM 50 MG TAB PO SCH (20:48)
[2022-01-03] MEDS: ROPINIROLE PO SCH (20:49)
[2022-01-03] MEDS: ROSUVASTATIN CALCIUM 20 MG TAB PO SCH (20:50)
--- NOTE | 2022-01-03 21:13 | Hospitalist Progress Note ---
Date of Service January 03, 2022 Assessment & Plan (1) Sepsis: Plan: Presents with tachypnea, tachycardia, leukocytosis, and found to have COVID-19 as well as UTI as the source It seems odd that she will have symptomatic COVID-19 just 6 to 7 weeks after she had it in November. Perhaps she has a secondary bacterial acute bronchitis as well as her UTI causing her current symptoms. Perhaps her COVID-19 test is just persistently positive Chest x-ray negative, CT angiogram chest without PE but with evidence of bronchitis With evidence of endorgan damage with elevated troponin, respiratory failure Lactate negative, procalcitonin negative Hemodynamically stable -Admit to PCU for telemetry monitoring given sepsis and history of SVT -Treat with ceftriaxone for UTI as well as add doxycycline for bronchitis and treat COVID-19 as below -Fluids not given due to wanting to avoid volume overload in the setting of COVID-19 -Follow CBC, CMP in the morning -Follow blood cultures, urine culture -patient currently on room air. (2) COVID-19 virus infection: Plan: With wheezing and mild hypoxia with pulse ox 93-94% and significant tachypnea -Dexamethasone started in the ER-continue dexamethasone at 6 mg IV once daily x10-day course -Start Remdesivir x5-day course -Give flutter valve, incentive spirometry -DuoNebs -Follow CBC, CMP, CRP in the morning -Supplemental O2 as needed he pulse ox greater than 90% remains stable. will monitor tachycardia (3) Acute respiratory failure with hypoxia: Plan: , Secondary to acute bronchitis and COVID-19 Given steroids (4) Hypomagnesemia: Plan: Replenished with IV magnesium sulfate (5) Urinary tract infection: Plan: Abnormal UA with suprapubic pain Continue ceftriaxone Follow urine culture (6) Elevated troponin I level: Plan: Troponin mildly elevated, no chest pain ECG without ischemic changes Trend serial troponin Likely myocardial demand ischemia in the setting of acute illness and hypoxia (7) Controlled type 2 diabetes mellitus with insulin therapy: Plan: With hyperglycemia secondary to corticosteroids Continue basal bolus insulin ADA diet (8) Acid reflux disease with ulcer: Plan: Continue Protonix (9) Chronic kidney disease, stage 3 (moderate): Plan: Creatinine at baseline -Avoid nephrotoxins -renally dose meds when appropriate -follow BMP (10) Complex sleep apnea syndrome: Plan: Ordered CPAP for her at bedtime (11) Depression: Plan: Continue home fluoxetine (12) HTN (hypertension): Plan: Blood pressures are controlled Continue home losartan (13) Restless legs syndrome: Plan: Follows with sleep medicine Continue ropinirole (14) Dyslipidemia: Plan: Continue statin (15) Esophageal dysmotility: Plan: Noted (16) SVT (supraventricular tachycardia): Plan: History of isolated SVT requiring cardioversion Follows with cardiology Not on AV cal blockers (17) Zoster ophthalmicus: Plan: History of recurrence x3 Remain on valacyclovir for prophylaxis daily Plan: DVT prophylaxis-Lovenox, SCDs Disposition-admit to medical floor telemetry DNR/DNI as discussed with patient and her at the bedside Admission and Anticipated Discharge Date Admission Date: January 02, 2022 Subjective Patient reports breathing better. Patient denies any fever chills nausea. Review of Systems Review of Systems: All systems reviewed & are unremarkable except as noted in HPI & below Physical Exam Physical Exam: \ Constitutional: WD/WN, vitals as above Eyes: PERRL, conjunctivae normal, anicteric sclerae ENMT: external ear and nose normal, oropharynx normal Neck: trachea midline, no thyromegaly Respiratory: normal respiratory effort, bilateral wheeze Cardiovascular: RRR, no murmur, no edema Chest (Breasts): Chest: normal inspection of chest Gastrointestinal (Abdomen): normal bowel sounds, soft, nontender, no hepatosplenomegaly (With mild suprapubic tenderness without guarding or rebound) Musculoskeletal: Extremities: extremities normal to inspection; no cyanosis and no clubbing Skin: no rashes, warm and dry Neurologic: moves all extremities and awake; no focal motor deficits Psychiatric: A+Ox3, euthymic affect Lymphatic: no lymphedema Results & Data Results & Data ([facility]) Vital Signs (Past 12 Hours) Vital Signs Temp Pulse Pulse Pulse Resp BP Pulse Ox 01/03/22 20:08 36.7 C 91 H 18 139/58 L 95 01/03/22 19:44 85 19 96 01/03/22 16:48 36.8 C 93 H 16 121/69 95 01/03/22 15:22 83 18 94 01/03/22 15:19 90 01/03/22 11:51 36.8 C 90 14 136/56 L 94 01/03/22 10:52 93 H 18 97 01/03/22 09:28 Pulse Ox 01/03/22 20:08 01/03/22 19:44 01/03/22 16:48 01/03/22 15:22 01/03/22 15:19 01/03/22 11:51 01/03/22 10:52 01/03/22 09:28 94 PG Care Time/CCT Total # of Minutes Spent Total Time Spent with Patient: Total time spent is greater than 50% in coordination of care (as documented) at patient's floor/unit and/or counseling patient: Coding Level of Care Code 74181 Subseq Hosp Care Lvl 2 Diagnoses Sepsis A41.9 COVID-19 virus infection U07.1 Acute respiratory failure with hypoxia J96.01 Hypomagnesemia E83.42 Urinary tract infection N39.0 Hematuria presence: without hematuria Urinary tract infection type: site unspecified Elevated troponin I level R77.8 Controlled type 2 diabetes mellitus with insulin therapy E11.9; Z79.4 Acid reflux disease with ulcer K21.9 Chronic kidney disease, stage 3 (moderate) N18.3 Complex sleep apnea syndrome G47.31 Depression F32.9 HTN (hypertension) I10 Restless legs syndrome G25.81 Dyslipidemia E78.5 Esophageal dysmotility K22.4 SVT (supraventricular tachycardia) I47.1 Zoster ophthalmicus B02.30 (1) Urinary tract infection Hematuria presence: without hematuria Urinary tract infection type: site unspecified Qualified Code(s): N39.0 - Urinary tract infection, site not specified
[2022-01-03] MEDS: INSULIN GLARGINE SOLOSTAR 100 UNITS/ML 3 ML PEN SQ SCH (22:17)
[2022-01-03] MEDS: ENOXAPARIN INJ 30 MG/0.3 ML SYR SQ SCH (22:27)
[2022-01-04] MEDS: INSULIN ASPART PER UNIT SC SCH ×6 (01:35→21:28)
[2022-01-04] MEDS: DOXYCYCLINE HYCLATE 100 MG in DEXTROSE 5% 100 ML IV SCH ×2 (01:36→13:09)
[2022-01-04] MEDS: ALBUT/IPRATROP 3MG/0.5MG NEB 3 ML VIAL NEB SCH ×4 (07:28→19:37)
[2022-01-04 08:37] LABS: Creatinine Clr Calc Pharmacy 25.1 ml/min; Est GFR (Non-African American) 32.8 ml/min
[2022-01-04] MEDS ORDERED: INSULIN GLARGINE SOLOSTAR 100 UNITS/ML 3 ML PEN SQ SCH (09:00)
[2022-01-04] MEDS: INSULIN HUMAN NPH SC SCH (10:00)
[2022-01-04] MEDS: ASCORBIC ACID 500 MG TAB PO SCH (10:15)
[2022-01-04] MEDS: dexAMETHasone 6 MG in SYRINGE 0 ML IV SCH (10:16)
[2022-01-04] MEDS: PANTOprazole 40 MG TAB PO SCH (10:16)
[2022-01-04] MEDS: valACYclovir HCL 500 MG TABLET PO SCH (13:09)
[2022-01-04] MEDS: METOPROLOL TARTRATE 25 MG TAB PO SCH ×2 (13:09→21:42)
--- NOTE | 2022-01-04 14:37 | Cardiology Consultation ---
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 -patient has been started on metoprolol tartrate 25 mg b.i.d.. -she had problems with bradycardia on diltiazem previously. -will watch on the monitor closely. -will ask Dr. Alvarado to review the monitor strips. (2) COVID-19 virus infection: -with evidence of diffuse peribronchial thickening consistent with bronchitis or reactive airways disease. -may be the etiology of her recurrent SVT. -treatment per hospitalist team. (3) HTN (hypertension): -adequate control currently. (4) Dyslipidemia: -continue rosuvastatin. History of Present Illness Attending Physician: Giovanni Liu History of Present Illness Mrs. Douglas is a 6-year-old female admitted on January 02 with COVID-19, bronchitis, and a urinary tract infection. The patient developed paroxysms of her SVT. Therefore, this consultation was ordered. Of note, the patient fo llows with Dr. Adams in the outpatient setting. The patient was in her usual state of health until approximately 1 week prior to presentation. She began to note a nonproductive cough along with exertional dyspnea and audible wheezing. She presented to the emergency room for further care. CT scan of the chest noted diffuse peribronchial thickening consistent with either bronchitis or reactive airways disease. The patient developed a paroxysms of her previously diagnosed SVT over the last 12 hours. She remains asymptomatic from a cardiac perspective. She was diagnosed with a reentrant SVT back in April 2020. The patient had a 4 day episode which was initially felt to be atrial flutter, however, it was Dr. Alvarado's opinion that this represented a reentrant SVT. An echocardiogram p erformed at that time noted normal left ventricular systolic function. Past medical and surgical history 1. Hypertension 2. Mild LVH 3. Hypercholesterolemia 4. 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 Mild aortic insufficiency 6. Moderate tricuspid regurgitation 7. Diabetes mellitus 8. Chronic renal failure 9. Esophageal dysmotility 10. GERD 11. Obstructive sleep apnea 12. Spinal stenosis 13. Chronic low back pain 14. Hearing deficit 15. Anxiety/depression 16. Restless leg syndrome 17. Right lower extremity ORIF 18. Intra-ocular lens implants, bilateral 19. Tubal ligation 20. Carpal tunnel release 21. Tonsillectomy 22. BINU/BSO 23. Bilateral TKR 24. Rotator cuff repair 25. Appendectomy 26. Bladder tuck Social history and lives with her No tobacco alcohol Family history Noncontributory Review of systems A 10 review systems was negative except for that described above. Allergies Allergy/AdvReac Type Severity Reaction Status Date / Time valdecoxib Allergy Severe DYSPNEA, Verified 01/02/22 16:34 HAS TOLERATED TORADOL hydrochlorothiazide Allergy Intermediate itching Verified 01/02/22 16:34 [From Dyazide] Iodinated Contrast Media Allergy Intermediate RASH Verified 01/02/22 16:34 triamterene [From Dyazide] Allergy Intermediate itching Verified 01/02/22 16:34 adhesive Allergy Mild CLOTH Verified 01/02/22 16:34 ADHESIVE/BANDAIDS-RASH metformin Allergy Mild Diarrhea Verified 01/02/22 16:34 Home Medications Medication Instructions Recorded Confirmed Type cholecalciferol (vitamin D3) 25 1,000 units PO HS 03/14/19 01/02/22 History mcg (1,000 unit) capsule ascorbic acid (vitamin C) 1,000 mg 1 gm PO QAM tab 05/16/19 01/02/22 History tablet calcium carbonate 500 mg calcium 500 mg PO HS tab 05/16/19 01/02/22 History (1,250 mg) chewable tablet aspirin 81 mg tablet,delayed 81 mg PO Q2D #30 tab 03/29/21 01/02/22 Rx release (Aspirin Low Dose) ropinirole 12 mg tablet,extended 12 mg PO HS #90 tab 04/04/21 01/02/22 Rx release 24 hr valacyclovir 500 mg tablet 500 mg PO DAILY 05/09/21 01/02/22 History (Valtrex) [facility] 05/12/21 01/02/22 History Verio test strips) lancets 30 gauge ([facility] 05/12/21 01/02/22 History Lancets) triamcinolone acetonide 0.1 % 1 applic TOPICAL DAILY #453.6 g 06/23/21 01/02/22 Rx topical cream rosuvastatin 40 mg tablet 40 mg PO HS #90 tab 07/27/21 01/02/22 Rx fluoxetine 20 mg capsule 20 mg PO QPM #30 cap 08/08/21 01/02/22 Rx nitroglycerin 0.4 mg sublingual 0.4 mg SL Q5M PRN #25 tab 10/11/21 01/02/22 Rx tablet losartan 100 mg tablet 100 mg PO QPM #90 tab 11/29/21 01/02/22 Rx diphenoxylate-atropine 2.5 1 tab PO TID PRN #90 tab 12/12/21 01/02/22 Rx mg-0.025 mg tablet insulin aspart U-100 100 unit/mL 3 unit SUBCUT .QAM UD 01/02/22 01/02/22 History (3 mL) subcutaneous pen (Novolog Flexpen U-100 Insulin aspart) insulin aspart U-100 100 unit/mL 5 unit SUBCUT .QLUNCH UD 01/02/22 01/02/22 History (3 mL) subcutaneous pen (Novolog Flexpen U-100 Insulin aspart) insulin aspart U-100 100 unit/mL 8 unit SUBCUT .QSUPPER 01/02/22 01/02/22 History (3 mL) subcutaneous pen (Novolog Flexpen U-100 Insulin aspart) insulin glargine 100 unit/mL (3 11 unit SQ BID 01/02/22 01/02/22 History mL) subcutaneous pen (Basaglar KwikPen U-100 Insulin) esomeprazole magnesium 40 mg 40 mg PO DAILY #30 cap 01/03/22 Rx capsule,delayed release famotidine 40 mg tablet 40 mg PO DAILY #30 tab 01/03/22 Rx Patient History Medical History (Updated 01/03/22 @ 00:04 by Josephine Gambino MD) Anxiety Chronic kidney disease, stage 3 Follows with neprho- stable- baseline creat 1.3 since February 2010 Chronic low back pain Chronic SI joint pain Diabetes mellitus, type 2 Follows with endo DSAP (disseminated superficial actinic porokeratosis) Dyslipidemia Dysphagia Esophageal dysmotility GERD (gastroesophageal reflux disease) Hyperlipidemia Hypertension Restless leg syndrome Sensory hearing loss, bilateral Sleep apnea cpap Spinal stenosis Zoster ophthalmicus Surgical History History of arthroscopy of right knee History of bilateral cataract extraction History of bilateral tubal ligation History of bladder surgery bladder tuck x2 [place] cardiac [place] [facility] [place]d/t heart failure History of carpal tunnel release of both wrists History of colonoscopy History of dilatation and curettage History of elbow surgery LEFT/RT History of esophageal dilatation History of esophagogastroduodenoscopy (EGD) History of left breast biopsy benign History of lumbar spinal fusion History of lumpectomy of left breast benign History of open reduction and internal fixation (ORIF) procedure right leg--hardware in place History of right breast biopsy benign History of surgical procedure on mouth removed benign tissue from lower jaw History of toe surgery big toe History of tonsillectomy and adenoidectomy History of tooth extraction all teeth removed History of total hysterectomy with bilateral salpingo-oophorectomy (BSO) History of total left knee replacement (TKR) x2 History of total right knee replacement (TKR) x2 Hx of repair of left rotator cuff x2 Hx of repair of right rotator cuff S/P appendectomy S/P exploratory laparotomy Family History Mother Heart disease Myocardial infarction Family/Other Arthritis Father Asthma Sister Ovarian cancer Heart disease Family history of diabetes mellitus Sister Family history of diabetes mellitus Other No family history of adverse response to anesthesia Denies family history of Prostate cancer Kidney disease Breast cancer Colorectal cancer Social History Smoking Status: Never smoker Second Hand Exposure: Yes ( SMOKED IN THE PAST); Do You Dip or Chew Tobacco: No; Hx Alcohol Use: No Hx Substance Use: No Preferred Language: Sammarinese Communication Ability: Effective Beef Selector Required: No Beliefs That Will Affect Care: None marital status: Current Living Situation: Spouse current occupational status: retired Other Information That Helps Us Care for You: No Feels Safe at Home: Yes Safety Concerns: Feels Safe At This Time Childhood Exposure to Second-Hand Smoke: Yes Dental Care, Regularly: No Physical Activity Frequency: Does not Exercise Seatbelt Use: always Sunscreen Use: Yes Assistive Devices: Cane, CPAP, Denture - Upper, Denture - Lower, Glasses, Hearing Aid - Bilateral and Walker Physical Exam Physical Exam: Exam per Dr. Liu as patient in COVIN isolation. Results & Data ([facility]) Vital Signs (Past 12 Hours) Vital Signs Temp Pulse Pulse Resp BP Pulse Ox 01/04/22 12:05 36.5 C 100 H 22 150/71 H 96 01/04/22 11:02 82 16 94 01/04/22 07:28 76 18 98 01/04/22 07:00 87 01/04/22 06:36 36.5 C 83 18 118/71 95 Laboratory Results CBC notes hemoglobin 14.1, hematocrit 42.8, white count 17.02, and platelet count [id number]. Electrolytes note a sodium of 139, potassium 4.0, chloride 104, bicarb 26, BUN 33, creatinine 1.33, glucose of 85. Initial high sensitivity troponin was 66.3 with follow-up values of 61.2, 59.1, and 53.5. Diagnostic Findings case monitor notes sinus rhythm with paroxysms of an SVT. EKG notes normal sinus rhythm with a left axis deviation and left ventricular hypertrophy repolarization changes. Chest x-ray notes cardiomegaly and no acute disease. PG Care Time/CCT Total # of Minutes Spent Total Time Spent with Patient: Total time spent is greater than 50% in coordination of care (as documented) at patient's floor/unit and/or counseling patient: Coding Level of Care Code 80474 Initial Inpt Care Lvl 3 Diagnoses SVT (supraventricular tachycardia) I47.1 HTN (hypertension) I10 Dyslipidemia E78.5 COVID-19 virus infection U07.1
[2022-01-04 14:47] LABS: Hematocrit (blood only) 38.3 % (37-47); Hemoglobin 12.7 g/dL (12.0-16.0); Mean Corpuscular Hemoglobin 31.2 pg (25-34); Mean Corpuscular Hgb Conc 33.2 g/dL (32-36); Mean Corpuscular Volume 94.1 fL (80-100); Mean Platelet Volume 10.7 fL (7.4-10.4); Platelet Count 265 K/uL (130-400); RDW Coefficient of Variation 14.8 % (11.5-14.5); RDW Standard Deviation 50.8 fL (36.4-46.3); Red Blood Count 4.07 M/uL (4.2-5.4); White Blood Count 24.05 K/uL (4.8-10.8)
[2022-01-04 15:06] LABS: Basophils # (auto) 0.01 K/uL (0-0.2); Echinocytes 1+; Immature Granulocytes # (auto) 0.09 K/uL (0.00-0.02); Immature Granulocytes % (auto) 0.4 %; Lymphocytes % (auto) 2.9 %; Monocytes # (auto) 0.34 K/uL (0.11-0.59); Monocytes % (auto) 1.4 %; Neutrophils # (auto) 22.91 K/uL (1.4-6.5); Neutrophils % (auto) 95.3 %; Polychromasia 1+
[2022-01-04 15:37] LABS: BUN Creatinine Ratio 32.4 (10-20); C Reactive Protein 4.1 mg/dl (0-0.5); Calcium 8.7 mg/dl (8.5-10.1); Creatinine Clr Calc Pharmacy 20.9 ml/min; Est GFR (African American) 30.5 ml/min; Est GFR (Non-African American) 26.3 ml/min; Magnesium 1.9 mg/dl (1.7-2.4); Potassium 4.2 mmol/L (3.5-5.1)
[2022-01-04] MEDS: cefTRIAXone SODIUM 1,000 MG in DEXTROSE 5% 50 ML IV SCH (18:18)
[2022-01-04] MEDS: REMDESIVIR 100 MG in SODIUM CHLORIDE 0.9% 230 ML IV SCH (21:34)
[2022-01-04] MEDS: LOSARTAN POTASSIUM 50 MG TAB PO SCH (21:40)
[2022-01-04] MEDS: CHOLECALCIFEROL 1,000 UNITS 25 MCG TAB PO SCH (21:41)
[2022-01-04] MEDS: FLUoxetine HCL 20 MG CAP PO SCH (21:41)
[2022-01-04] MEDS: ENOXAPARIN INJ 30 MG/0.3 ML SYR SQ SCH (21:41)
[2022-01-04] MEDS: CALCIUM CARBONATE 1250MG TAB PO SCH (21:42)
[2022-01-04] MEDS: ROPINIROLE PO SCH (21:43)
[2022-01-04] MEDS: ROSUVASTATIN CALCIUM 20 MG TAB PO SCH (21:43)
[2022-01-05] MEDS: DOXYCYCLINE HYCLATE 100 MG in DEXTROSE 5% 100 ML IV SCH ×2 (01:33→12:42)
[2022-01-05] MEDS: CARBOHYDRATES FOR HYPOGLYCEMIA PO PRN (04:14)
--- NOTE | 2022-01-05 06:58 | Hospitalist Progress Note ---
Date of Service January 04, 2022 Assessment & Plan (1) Sepsis: Plan: Presents with tachypnea, tachycardia, leukocytosis, and found to have COVID-19 as well as UTI as the source It seems odd that she will have symptomatic COVID-19 just 6 to 7 weeks after she had it in November. Perhaps she has a secondary bacterial acute bronchitis as well as her UTI causing her current symptoms. Perhaps her COVID-19 test is just persistently positive Chest x-ray negative, CT angiogram chest without PE but with evidence of bronchitis With evidence of endorgan damage with elevated troponin, respiratory failure Lactate negative, procalcitonin negative Hemodynamically stable -Admit to PCU for telemetry monitoring given sepsis and history of SVT -Treat with ceftriaxone for UTI as well as add doxycycline for bronchitis and treat COVID-19 as below -Fluids not given due to wanting to avoid volume overload in the setting of COVID-19 -follow blood work -Follow blood cultures, urine culture -patient remains stable on room air. (2) COVID-19 virus infection: Plan: With wheezing and mild hypoxia with pulse ox 93-94% and significant tachypnea -Dexamethasone started in the ER-continue dexamethasone at 6 mg IV once daily x10-day course -Start Remdesivir x5-day course -Give flutter valve, incentive spirometry -DuoNebs -Patient reamins on room air -Supplemental O2 as needed he pulse ox greater than 90% remains stable. will monitor tachycardia (3) Supraventricular tachycardia: Plan: History of isolated SVT requiring cardioversion Follows with cardiology Due to multiple episodes of short bursts of SVT during hospital stay will place on Beta blockers on 01/04 HR is in 80s, patient should tolerate low dose. will consult cardio. (4) Acute respiratory failure with hypoxia: Plan: , Secondary to acute bronchitis and COVID-19 Given steroids (5) Hypomagnesemia: Plan: Replenished with IV magnesium sulfate (6) Urinary tract infection: Plan: Abnormal UA with suprapubic pain Continue ceftriaxone Follow urine culture (7) Elevated troponin I level: Plan: Troponin mildly elevated, no chest pain ECG without ischemic changes Trend serial troponin Likely myocardial demand ischemia in the setting of acute illness and hypoxia (8) Controlled type 2 diabetes mellitus with insulin therapy: Plan: With hyperglycemia secondary to corticosteroids Continue basal bolus insulin ADA diet (9) Acid reflux disease with ulcer: Plan: Continue Protonix (10) Chronic kidney disease, stage 3 (moderate): Plan: Creatinine at baseline -Avoid nephrotoxins -renally dose meds when appropriate -follow BMP (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: Plan: Ordered CPAP for her at bedtime (12) Depression: Plan: Continue home fluoxetine (13) HTN (hypertension): Plan: Blood pressures are controlled Continue home losartan (14) Restless legs syndrome: Plan: Follows with sleep medicine Continue ropinirole (15) Dyslipidemia: Plan: Continue statin (16) Esophageal dysmotility: Plan: Noted (17) SVT (supraventricular tachycardia): (18) Zoster ophthalmicus: Plan: History of recurrence x3 Remain on valacyclovir for prophylaxis daily Plan: DVT prophylaxis-Lovenox, SCDs Disposition-admit to medical floor telemetry DNR/DNI as discussed with patient and her at the bedside Admission and Anticipated Discharge Date Admission Date: January 02, 2022 Subjective Patient reports having no new symptoms. She reports she follows with Dr. Adams as an outpatient. Nurse reports multiple episodes of SVT. Review of Systems Review of Systems: All systems reviewed & are unremarkable except as noted in HPI & below Physical Exam Physical Exam: Constitutional: WD/WN, vitals as above Eyes: PERRL, conjunctivae normal, anicteric sclerae ENMT: external ear and nose normal, oropharynx normal Neck: trachea midline, no thyromegaly Respiratory: normal respiratory effort, bilateral wheeze Cardiovascular: RRR, no murmur, no edema Chest (Breasts): Chest: normal inspection of chest Gastrointestinal (Abdomen): normal bowel sounds, soft, nontender, no hepatosplenomegaly (With mild suprapubic tenderness without guarding or rebound) Musculoskeletal: Extremities: extremities normal to inspection; no cyanosis and no clubbing Skin: no rashes, warm and dry Neurologic: moves all extremities and awake; no focal motor deficits Psychiatric: A+Ox3, euthymic affect Lymphatic: no lymphedema Results & Data Results & Data ([facility]) Vital Signs (Past 12 Hours) Vital Signs Temp Pulse Pulse Resp BP Pulse Ox Pulse Ox 01/05/22 06:31 36.4 C L 56 L 18 158/78 H 97 01/05/22 03:51 36.3 C L 61 18 152/74 H 98 01/04/22 23:59 68 01/04/22 22:43 36.8 C 63 18 126/62 97 01/04/22 21:18 98 01/04/22 19:39 76 18 98 PG Care Time/CCT Total # of Minutes Spent Total Time Spent with Patient: Total time spent is greater than 50% in coordination of care (as documented) at patient's floor/unit and/or counseling patient: Coding Level of Care Code 42362 Subseq Hosp Care Lvl 3 Diagnoses Sepsis A41.9 COVID-19 virus infection U07.1 Acute respiratory failure with hypoxia J96.01 Hypomagnesemia E83.42 Urinary tract infection N39.0 Hematuria presence: without hematuria Urinary tract infection type: site unspecified Elevated troponin I level R77.8 Controlled type 2 diabetes mellitus with insulin therapy E11.9; Z79.4 Acid reflux disease with ulcer K21.9 Chronic kidney disease, stage 3 (moderate) N18.3 Complex sleep apnea syndrome G47.31 Depression F32.9 HTN (hypertension) I10 Restless legs syndrome G25.81 Dyslipidemia E78.5 Esophageal dysmotility K22.4 SVT (supraventricular tachycardia) I47.1 Zoster ophthalmicus B02.30 Supraventricular tachycardia I47.1 (1) Urinary tract infection Hematuria presence: without hematuria Urinary tract infection type: site unspecified Qualified Code(s): N39.0 - Urinary tract infection, site not specified
[2022-01-05] MEDS: ALBUT/IPRATROP 3MG/0.5MG NEB 3 ML VIAL NEB SCH (07:11)
[2022-01-05 07:24] LABS: Hemoglobin 12.9 g/dL (12.0-16.0); Mean Corpuscular Hemoglobin 31.1 pg (25-34); Mean Corpuscular Hgb Conc 33.1 g/dL (32-36); Mean Platelet Volume 10.4 fL (7.4-10.4); Platelet Count 303 K/uL (130-400); RDW Coefficient of Variation 15.1 % (11.5-14.5); RDW Standard Deviation 51.9 fL (36.4-46.3); Red Blood Count 4.15 M/uL (4.2-5.4); White Blood Count 23.11 K/uL (4.8-10.8)
[2022-01-05 08:15] LABS: Creatinine Clr Calc Pharmacy 23.4 ml/min; Est GFR (Non-African American) 29.3 ml/min
[2022-01-05 08:20] LABS: BUN Creatinine Ratio 38.2 (10-20); C Reactive Protein 2.86 mg/dl (0-0.5); Calcium 8.8 mg/dl (8.5-10.1); Creatinine Clr Calc Pharmacy 23.6 ml/min; Est GFR (African American) 34.2 ml/min; Est GFR (Non-African American) 29.5 ml/min; Potassium 4.5 mmol/L (3.5-5.1)
[2022-01-05] MEDS ORDERED: INSULIN GLARGINE SOLOSTAR 100 UNITS/ML 3 ML PEN SQ SCH (09:00)
[2022-01-05] MEDS ORDERED: valACYclovir HCL 500 MG TABLET PO SCH (09:00)
--- NOTE | 2022-01-05 09:04 | Cardiology Progress Note ---
Date of Service January 05, 2022 Assessment & Plan (1) Supraventricular tachycardia: (2) COVID-19 virus infection: (3) HTN (hypertension): (4) Hypomagnesemia: Plan: Patient tolerating low-dose beta-cierra with no further tachydysrhythmias overnight. She was on diltiazem for several years (), ultimately this had to be stopped due to bradycardia related symptoms. Will need to monitor closely for symptomatic bradycardia, which likely would merit pacemaker if she has further tachycardic dysrhythmias. However, since she went many years without dysrhythmia and since there are precipitating factors (COVID infection, hypomagnesemia), hopefully low-dose beta-cierra in the near term (long-term if tolerated) will be adequate for rhythm control. Will ask Dr. Alvarado to review strips to confirm SVT, since there was a change in morphology with widening QRS at one-point, suspect this is due to rate related bundle branch block rather than a separate ventricular dysrhythmia. BP mildly elevated, but in the context of acute illness would not specifically treat this aggressively. I will be out of town as of tomorrow, please contact Dr. Alvarado if further cardiology issues occur. Admission and Anticipated Discharge Date Admission Date: January 02, 2022 Subjective Patient was comfortable this morning, no subjective palpitations, chest discomfort, or other complaints. She did apparently have a low blood glucose earlier today. No further sustained tachydysrhythmias since the episode occurring at 1 PM yesterday. Physical Exam Physical Exam: Not examined (COVID-positive) Results & Data ([facility]) Vital Signs (Past 12 Hours) Vital Signs Temp Pulse Pulse Resp BP Pulse Ox Pulse Ox 01/05/22 07:19 57 L 01/05/22 07:11 60 18 99 01/05/22 06:31 97.5 F L 56 L 18 158/78 H 97 01/05/22 03:51 97.3 F L 61 18 152/74 H 98 01/04/22 23:59 68 01/04/22 22:43 98.2 F 63 18 126/62 97 01/04/22 21:18 98 PG Care Time/CCT Total # of Minutes Spent Total Time Spent with Patient: Total time spent is greater than 50% in coordination of care (as documented) at patient's floor/unit and/or counseling patient: Coding Level of Care Code 09784 Subseq Hosp Care Lvl 3 Diagnoses Supraventricular tachycardia I47.1 COVID-19 virus infection U07.1 HTN (hypertension) I10 Hypomagnesemia E83.42
[2022-01-05] MEDS: INSULIN HUMAN NPH SC SCH (09:07)
[2022-01-05] MEDS: INSULIN ASPART PER UNIT SC SCH ×4 (09:07→20:39)
[2022-01-05] MEDS: ASCORBIC ACID 500 MG TAB PO SCH (09:12)
[2022-01-05] MEDS: PANTOprazole 40 MG TAB PO SCH (09:12)
[2022-01-05] MEDS: dexAMETHasone 6 MG in SYRINGE 0 ML IV SCH (09:13)
[2022-01-05] MEDS: ASPIRIN 81 MG ECTAB PO SCH (09:13)
[2022-01-05] MEDS: METOPROLOL TARTRATE 25 MG TAB PO SCH ×2 (09:13→20:50)
[2022-01-05] MEDS ORDERED: ALBUT/IPRATROP 3MG/0.5MG NEB 3 ML VIAL NEB PRN (10:50)
[2022-01-05] MEDS: valACYclovir HCL 500 MG TABLET PO SCH (12:42)
--- NOTE | 2022-01-05 13:20 | Pharmacy Report ---
Pharmacy Glycemic Short Note 2 - Date of Service January 05, 2022 - Glycemic Short BSG Results (Last 24 hours): 01/04/22 01/04/22 01/04/22 14:16 17:20 20:25 Glucose 366 H* POC Glucose 267 H 149 H 01/05/22 01/05/22 01/05/22 04:00 04:52 06:59 Glucose 130 H POC Glucose 69 L* 113 H 01/05/22 01/05/22 07:56 11:27 Glucose POC Glucose 142 H 169 H OUTPATIENT ANTIDIABETIC REGIMEN: * Lantus 11 units BID * Novolog 3 units breakfast, 5 units lunch, 8 units supper * HbA1c: 8.3% (01/03/22) ASSESSMENT: 01/05/22: * NPH increased yesterday to provide additional steroid coverage while still receiving IV dexamethasone. * BSGs are much improved today following the additional NPH as well as more aggressive Novolog parameters. * Fasting BSG slightly low this morning (69 mg/dL), so Lantus dose reduced. * Will continue to adjust as needed. * Expect that insulin requirements will decrease significantly when steroids are discontinued. Will need to adjust insulin regimen accordingly to prevent hypoglycemia. 01/03 * Patient admitted with COVID infection, started on dexamethasone. * Initial BSG 173 but BSG subsequently tera after dex administration/no insulin until evening. Significantly elevated in the 400s, came down to 95 overnight. * Plan to add NPH with dexamethasone, increase tomorrows dose to 0.4 units/kg as this AM dose was insufficient. * Did hold AM lantus as BSG dropped down to 95 this morning, will resume 11 units BID dosing * Novolog parameters were tightened. Will assess trend for further changes PLAN FOR INPATIENT GLYCEMIC CONTROL: * Hold outpatient oral diabetes medications * Basal insulin * Lantus 10 units SQ daily * NPH 30 units (~0.4 units/kg) SQ daily with dexamethasone * Bolus insulin * NovoLog per scale ACHS or Q6hrs while NPO * Goal Range: Low 110 mg/dL - High 140 mg/dL * Correction Factor: 15 mg/dL/unit * Nutritional / Prandial insulin per carb ratio of 1 unit per 6 grams CHO consumed
[2022-01-05] MEDS: cefTRIAXone SODIUM 1,000 MG in DEXTROSE 5% 50 ML IV SCH (15:42)
--- NOTE | 2022-01-05 16:09 | Hospitalist Progress Note ---
Date of Service January 05, 2022 Assessment & Plan (1) Sepsis: Plan: - Presented with tachypnea, tachycardia, leukocytosis, and found to have COVID- 19 as well as UTI as the source - Recent dx COVID-19 just 6 to 7 weeks ago in November. Suspected Perhaps she has a secondary bacterial acute bronchitis as well as her UTI causing her current symptoms. - Possible COVID-19 test is just persistently positive - CXR neg - CTA without PE, +bronchitis. Doxycycline 20 mg x 5 days for possible superimposed bronchitis - On admit with evidence of endorgan damage with elevated troponin, respiratory failure - Lactate negative, procalcitonin negative - Hemodynamically stable -Admitted to PCU for telemetry monitoring given sepsis and history of SVT -Tx ceftriaxone for UTI as well as add doxycycline for bronchitis as noted -Fluids not given due to wanting to avoid volume overload in the setting of COVID-19 -follow blood work -Follow blood cultures, urine culture -patient remains stable on room air. (2) COVID-19 virus infection: Plan: With wheezing and mild hypoxia with pulse ox 93-94% and significant tachypnea -Dexamethasone started in the ER -continue dexamethasone at 6 mg IV once daily x10-day course - Remdesivir x5 day course -Give flutter valve, incentive spirometry -DuoNebs -Patient reamins on room air -Supplemental O2 as needed he pulse ox greater than 90% - CRP downtrending 4.10 --> 2.86 (3) Supraventricular tachycardia: Plan: History of isolated SVT requiring cardioversion Follows with cardiology Due to multiple episodes of short bursts of SVT during hospital stay Started MTP tartrate 25mg BID on 01/04, doing well with no recurrence since Cardiology consulted. ?SVT vs rate related BBB. Strips to be reviewed w/ Dr. Alvarado (4) Acute respiratory failure with hypoxia: Plan: - Improved - Dexamethasone as noted (5) Hypomagnesemia: Plan: Repleated (6) Urinary tract infection: Plan: Abnormal UA with suprapubic pain Continue ceftriaxone x5-7 day course 01/02/22 UC: E coli, pansensitive (7) Elevated troponin I level: Plan: Troponin mildly elevated, no chest pain ECG without ischemic changes Serial trop peaked at 66 on admit, downtrending after Likely myocardial demand ischemia in the setting of acute illness and hypoxia (8) Controlled type 2 diabetes mellitus with insulin therapy: Plan: Glucose checks AC/at bedtime Goal BSG 414830 Lantus 10 units every morning, NPH 30 units with dexamethasone, aspart SSI CF 15 ratio 6 BMP daily (9) Acid reflux disease with ulcer: Plan: Continue Protonix (10) Chronic kidney disease, stage 3 (moderate): Plan: Creatinine baseline 1.21.4 1.57 today near, slightly above baseline -Avoid nephrotoxins -renally dose meds (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: Plan: CPAP nightly (12) Depression: Plan: Continue home fluoxetine (13) HTN (hypertension): Plan: Blood pressures are controlled Continue home losartan (14) Restless legs syndrome: Plan: Follows with sleep medicine Continue ropinirole (15) Dyslipidemia: Plan: Continue statin (16) Esophageal dysmotility: Plan: Noted (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 Sitting up in chair, no acute distress. Appears clinically to be doing well. Is breathing well on room air. Does continue to have a leukocytosis starting to downtrend in the setting of steroid use. Continues on remdesivir/Dex for COVID with additional Doxy for possible superimposed bronchitis on imaging Review of Systems Review of Systems: All systems reviewed & are unremarkable except as noted in Subjective Physical Exam Physical Exam: General: A&Ox3. NAD. Cooperative. HEENT: Atraumatic, normocephalic. Vision and hearing grossly intact Pulm: Diminished, grossly clear without wheezes/rales/rhonchi symmetrical chest rise. No increase in work of breathing. No respiratory distress. Cardiac: RRR, -mrg. Radial pulses intact and symmetrical. Abdominal: Nontender, nondistended, soft. BS present. Results & Data Results & Data ([facility]) Vital Signs (Past 12 Hours) Vital Signs Temp Pulse Pulse Resp BP BP Pulse Ox 01/05/22 15:10 36.2 C L 57 L 20 123/54 L 97 01/05/22 11:27 36.5 C 62 20 161/63 H 98 01/05/22 07:19 57 L 01/05/22 07:11 60 18 99 01/05/22 06:31 36.4 C L 56 L 18 158/78 H 97 PG Care Time/CCT Total # of Minutes Spent Total Time Spent with Patient: Total time spent is greater than 50% in coordination of care (as documented) at patient's floor/unit and/or counseling patient: Coding Level of Care Code 26545 Subseq Hosp Care Lvl 2 Diagnoses Sepsis A41.9 COVID-19 virus infection U07.1 Supraventricular tachycardia I47.1 Acute respiratory failure with hypoxia J96.01 Hypomagnesemia E83.42 Urinary tract infection N39.0 Hematuria presence: without hematuria Urinary tract infection type: site unspecified Elevated troponin I level R77.8 Controlled type 2 diabetes mellitus with insulin therapy E11.9; Z79.4 Acid reflux disease with ulcer K21.9 Chronic kidney disease, stage 3 (moderate) N18.3 Complex sleep apnea syndrome G47.31 Depression F32.9 HTN (hypertension) I10 Restless legs syndrome G25.81 Dyslipidemia E78.5 Esophageal dysmotility K22.4 Zoster ophthalmicus B02.30 (1) Urinary tract infection Hematuria presence: without hematuria Urinary tract infection type: site unspecified Qualified Code(s): N39.0 - Urinary tract infection, site not specified
[2022-01-05] MEDS: guaiFENesin SUGAR FREE 100 MG/5 ML UDC PO PRN (17:13)
[2022-01-05] MEDS: ROPINIROLE PO SCH (20:47)
[2022-01-05] MEDS: REMDESIVIR 100 MG in SODIUM CHLORIDE 0.9% 230 ML IV SCH (20:47)
[2022-01-05] MEDS: ENOXAPARIN INJ 30 MG/0.3 ML SYR SQ SCH (20:48)
[2022-01-05] MEDS: LOSARTAN POTASSIUM 50 MG TAB PO SCH (20:48)
[2022-01-05] MEDS: CALCIUM CARBONATE 1250MG TAB PO SCH (20:49)
[2022-01-05] MEDS: CHOLECALCIFEROL 1,000 UNITS 25 MCG TAB PO SCH (20:49)
[2022-01-05] MEDS: FLUoxetine HCL 20 MG CAP PO SCH (20:49)
[2022-01-05] MEDS: ROSUVASTATIN CALCIUM 20 MG TAB PO SCH (20:50)
[2022-01-06] MEDS: DOXYCYCLINE HYCLATE 100 MG in DEXTROSE 5% 100 ML IV SCH ×2 (01:35→12:52)
[2022-01-06 08:24] LABS: Basophils # (auto) 0.01 K/uL (0-0.2); Basophils % (auto) 0.1 %; Hematocrit (blood only) 38.2 % (37-47); Hemoglobin 12.3 g/dL (12.0-16.0); Immature Granulocytes # (auto) 0.16 K/uL (0.00-0.02); Immature Granulocytes % (auto) 0.8 %; Lymphocytes # (auto) 3.18 K/uL (1.2-3.4); Lymphocytes % (auto) 16.5 %; Mean Corpuscular Hgb Conc 32.2 g/dL (32-36); Mean Corpuscular Volume 96.2 fL (80-100); Mean Platelet Volume 10.7 fL (7.4-10.4); Monocytes # (auto) 1.21 K/uL (0.11-0.59); Monocytes % (auto) 6.3 %; Neutrophils # (auto) 14.77 K/uL (1.4-6.5); Neutrophils % (auto) 76.3 %; Platelet Count 287 K/uL (130-400); RDW Coefficient of Variation 15.1 % (11.5-14.5); RDW Standard Deviation 53.6 fL (36.4-46.3); Red Blood Count 3.97 M/uL (4.2-5.4); White Blood Count 19.33 K/uL (4.8-10.8)
[2022-01-06] MEDS ORDERED: INSULIN HUMAN NPH SC SCH (09:00)
[2022-01-06 09:04] LABS: BUN Creatinine Ratio 38.1 (10-20); Calcium 8.7 mg/dl (8.5-10.1); Est GFR (African American) 29.8 ml/min; Est GFR (Non-African American) 25.7 ml/min; Potassium 4.1 mmol/L (3.5-5.1)
[2022-01-06] MEDS: INSULIN ASPART PER UNIT SC SCH ×5 (09:21→21:15)
[2022-01-06] MEDS: INSULIN GLARGINE SOLOSTAR 100 UNITS/ML 3 ML PEN SQ SCH (09:21)
[2022-01-06] MEDS: ASCORBIC ACID 500 MG TAB PO SCH (09:42)
[2022-01-06] MEDS: METOPROLOL TARTRATE 25 MG TAB PO SCH ×2 (09:42→21:23)
[2022-01-06] MEDS: PANTOprazole 40 MG TAB PO SCH (09:42)
[2022-01-06] MEDS: guaiFENesin SUGAR FREE 100 MG/5 ML UDC PO PRN ×2 (09:43→21:16)
[2022-01-06] MEDS: dexAMETHasone 6 MG in SYRINGE 0 ML IV SCH (09:43)
--- NOTE | 2022-01-06 10:10 | Pharmacy Report ---
Pharmacy Glycemic Short Note 2 - Date of Service January 06, 2022 - Glycemic Short BSG Results (Last 24 hours): 01/05/22 01/05/22 01/05/22 11:27 17:05 20:14 Glucose POC Glucose 169 H 95 111 H 01/06/22 01/06/22 07:47 08:13 Glucose 66 L POC Glucose 76 OUTPATIENT ANTIDIABETIC REGIMEN: * Lantus 11 units BID * Novolog 3 units breakfast, 5 units lunch, 8 units supper * HbA1c: 8.3% (01/03/22) ASSESSMENT: 01/06/22: * BSGs well-controlled yesterday, 142, 169, 95, and 111 mg/dL * Received 62 units of insulin (10 units of Lantus, 30 units of NPH, and 22 units of Novolog) * Fasting BSG of 76 mg/dL this morning * Given lower trend of BSGs, will scale back on Lantus and NPH today, Novolog carb ratio loosened last evening (will continue) 01/05/22: * NPH increased yesterday to provide additional steroid coverage while still receiving IV dexamethasone. * BSGs are much improved today following the additional NPH as well as more aggressive Novolog parameters. * Fasting BSG slightly low this morning (69 mg/dL), so Lantus dose reduced. * Will continue to adjust as needed. * Expect that insulin requirements will decrease significantly when steroids are discontinued. Will need to adjust insulin regimen accordingly to prevent hypoglycemia. 01/03 * Patient admitted with COVID infection, started on dexamethasone. * Initial BSG 173 but BSG subsequently tera after dex administration/no insulin until evening. Significantly elevated in the 400s, came down to 95 overnight. * Plan to add NPH with dexamethasone, increase tomorrows dose to 0.4 units/kg as this AM dose was insufficient. * Did hold AM lantus as BSG dropped down to 95 this morning, will resume 11 units BID dosing * Novolog parameters were tightened. Will assess trend for further changes PLAN FOR INPATIENT GLYCEMIC CONTROL: * Basal insulin - DECREASE * Lantus 5 units SQ daily * NPH 25 units SQ daily with dexamethasone * Bolus insulin - CONTINUE * NovoLog per scale ACHS or Q6hrs while NPO * Goal Range: Low 110 mg/dL - High 140 mg/dL * Correction Factor: 15 mg/dL/unit * Nutritional / Prandial insulin per carb ratio of 1 unit per 6 grams CHO consumed
[2022-01-06] MEDS: valACYclovir HCL 500 MG TABLET PO SCH (12:53)
[2022-01-06] MEDS: DIPHENOXYLATE/ATROPINE 2.5/0.025MG TAB PO PRN (12:57)
--- NOTE | 2022-01-06 13:36 | Hospitalist Progress Note ---
Date of Service January 06, 2022 Assessment & Plan (1) Sepsis: Plan: - Presented with tachypnea, tachycardia, leukocytosis, and found to have COVID- 19 as well as UTI as the source - Recent dx COVID-19 just 6 to 7 weeks ago in November. Suspected Perhaps she has a secondary bacterial acute bronchitis as well as her UTI causing her current symptoms. - Possible COVID-19 test is just persistently positive - CXR neg - CTA without PE, +bronchitis. Doxycycline 20 mg x 5 days for possible superimposed bronchitis - On admit with evidence of endorgan damage with elevated troponin, respiratory failure - Lactate negative, procalcitonin negative -Admitted to PCU for telemetry monitoring given sepsis and history of SVT -Tx ceftriaxone for UTI as well as add doxycycline for bronchitis as noted Blood cultures no growth to date UC pansensitive E. coli, treat for 5 days total (2) COVID-19 virus infection: Plan: With wheezing and mild hypoxia with pulse ox 93-94% and significant tachypnea -Dexamethasone started in the ER -continue dexamethasone at 6 mg IV once daily x10-day course - Remdesivir x5 day course; discontinued w/ MIGUEL after 3 days -Give flutter valve, incentive spirometry -DuoNebs -Patient reamins on room air -Supplemental O2 as needed he pulse ox greater than 90% - CRP downtrending (3) Supraventricular tachycardia: Plan: History of isolated SVT requiring cardioversion Last echo 05/2020 with normal LV size, wall motion, systolic function and mild concentric LVH. Moderate AAS, moderate mitral calcification Due to multiple episodes of short bursts of SVT during hospital stay Started MTP tartrate 25mg BID on 01/04. Did have short self terminating eposide evening 01/05. Cardiology consulted. ?SVT vs rate related BBB. Strips to be reviewed w/ Dr. Alvarado (4) Acute respiratory failure with hypoxia: Plan: - Improved - Dexamethasone as noted (5) Hypomagnesemia: Plan: Repleated (6) Urinary tract infection: Plan: Abnormal UA with suprapubic pain Continue ceftriaxone x5 day course 01/02/22 UC: E coli, pansensitive (7) Elevated troponin I level: Plan: Troponin mildly elevated, no chest pain ECG without ischemic changes Serial trop peaked at 66 on admit, downtrending after Likely myocardial demand ischemia in the setting of acute illness and hypoxia (8) Controlled type 2 diabetes mellitus with insulin therapy: Plan: Glucose checks AC/at bedtime Goal BSG 348439 Lantus 10 units every morning, NPH 30 units with dexamethasone, aspart SSI CF 15 ratio 6 BMP daily (9) Acid reflux disease with ulcer: Plan: Continue Protonix (10) Chronic kidney disease, stage 3 (moderate): Plan: Creatinine baseline 1.21.4 creatinine up trended to 1.7, held ARB and discontinued remdesivir, trend BMP -Avoid nephrotoxins -renally dose meds (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: Plan: CPAP nightly (12) Depression: Plan: Continue home fluoxetine (13) HTN (hypertension): Plan: Blood pressures are controlled Continue home losartan (14) Restless legs syndrome: Plan: Follows with sleep medicine Continue ropinirole (15) Dyslipidemia: Plan: Continue statin (16) Esophageal dysmotility: Plan: Noted (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 Feels she has good strength, and is ambulating independently in the room with minimal shortness of breath. No chest pain, chest pressure. No fevers, chills, sweats. Continues to have an intermittent cough. No nausea/vomiting/diarrhea. Creatinine is increased today, discussed discharge home with outpatient follow- up and BMP recheck versus holding losartan following overnight. Patient concerned about renal function and given increase from baseline and remdesivir treatment we will hold remdesivir, med, and follow. If improving/stable patient is comfortable returning home tomorrow. Review of Systems Review of Systems: All systems reviewed & are unremarkable except as noted in Subjective Physical Exam Physical Exam: General: A&Ox3. NAD. Cooperative. HEENT: Atraumatic, normocephalic. Vision and hearing grossly intact Pulm: Diminished, scattered trace expiratory wheezes and basilar crackles No increase in work of breathing. No respiratory distress. Cardiac: RRR, soft systolic murmur. Radial pulses intact and symmetrical. Abdominal: Nontender, nondistended, soft. BS present. Results & Data Results & Data ([facility]) Vital Signs (Past 12 Hours) Vital Signs Temp Pulse Pulse Resp BP BP Pulse Ox 01/06/22 11:33 36.4 C L 51 L 20 140/62 95 01/06/22 08:00 57 L 01/06/22 07:00 36.4 C L 57 L 16 149/70 H 97 01/06/22 03:54 36.5 C 58 L 18 148/69 H 97 PG Care Time/CCT Total # of Minutes Spent Total Time Spent with Patient: Total time spent is greater than 50% in coordination of care (as documented) at patient's floor/unit and/or counseling patient: Coding Level of Care Code 44015 Subseq Hosp Care Lvl 2 Diagnoses Sepsis A41.9 COVID-19 virus infection U07.1 Supraventricular tachycardia I47.1 Acute respiratory failure with hypoxia J96.01 Hypomagnesemia E83.42 Urinary tract infection N39.0 Hematuria presence: without hematuria Urinary tract infection type: site unspecified Elevated troponin I level R77.8 Controlled type 2 diabetes mellitus with insulin therapy E11.9; Z79.4 Acid reflux disease with ulcer K21.9 Chronic kidney disease, stage 3 (moderate) N18.3 Complex sleep apnea syndrome G47.31 Depression F32.9 HTN (hypertension) I10 Restless legs syndrome G25.81 Dyslipidemia E78.5 Esophageal dysmotility K22.4 Zoster ophthalmicus B02.30 (1) Urinary tract infection Hematuria presence: without hematuria Urinary tract infection type: site unspecified Qualified Code(s): N39.0 - Urinary tract infection, site not specified
[2022-01-06] MEDS: cefTRIAXone SODIUM 1,000 MG in DEXTROSE 5% 50 ML IV SCH (15:26)
[2022-01-06] MEDS: CARBOHYDRATES FOR HYPOGLYCEMIA PO PRN (17:27)
[2022-01-06] MEDS: ENOXAPARIN INJ 30 MG/0.3 ML SYR SQ SCH (21:17)
[2022-01-06] MEDS: ROSUVASTATIN CALCIUM 20 MG TAB PO SCH (21:18)
[2022-01-06] MEDS: CALCIUM CARBONATE 1250MG TAB PO SCH (21:18)
[2022-01-06] MEDS: CHOLECALCIFEROL 1,000 UNITS 25 MCG TAB PO SCH (21:19)
[2022-01-06] MEDS: FLUoxetine HCL 20 MG CAP PO SCH (21:20)
[2022-01-07] MEDS: DOXYCYCLINE HYCLATE 100 MG in DEXTROSE 5% 100 ML IV SCH ×2 (00:50→11:42)
--- NOTE | 2022-01-07 07:38 | XRay Report ---
XR chest 1V portable HISTORY: 86 years-old Female COVID, dyspnea, serial exam acute shortness of breath COMPARISON: Chest radiograph and CT chest studies 01/02/2022 TECHNIQUE: Portable AP view of the chest FINDINGS: The cardiac silhouette is mildly enlarged. Mitral annular calcifications. Mild chronic interstitial c oarsening. There is no pneumothorax, large pleural effusion, overt pulmonary edema or lobar airspace consolidation. Degenerative changes of the shoulders and spine with right shoulder rotator cuff calci fic tendinosis. IMPRESSION: Mild cardiomegaly without acute process. ACT 112: Negative or not required by law. The above report was generated using voice recognition software. It may contain grammatical, syntax o r spelling errors. Electronically signed by: Suleman Parker M.D. 01/07/2022 7:37 AM
[2022-01-07] MEDS: METOPROLOL TARTRATE 25 MG TAB PO SCH (08:36)
[2022-01-07] MEDS: DIPHENOXYLATE/ATROPINE 2.5/0.025MG TAB PO PRN (08:37)
[2022-01-07] MEDS: PANTOprazole 40 MG TAB PO SCH (08:38)
[2022-01-07] MEDS: ASCORBIC ACID 500 MG TAB PO SCH (08:38)
[2022-01-07] MEDS: dexAMETHasone 6 MG in SYRINGE 0 ML IV SCH (08:39)
[2022-01-07] MEDS: ASPIRIN 81 MG ECTAB PO SCH (08:39)
[2022-01-07] MEDS: INSULIN GLARGINE SOLOSTAR 100 UNITS/ML 3 ML PEN SQ SCH (08:43)
[2022-01-07] MEDS: INSULIN ASPART PER UNIT SC SCH ×2 (08:48→12:43)
[2022-01-07] MEDS ORDERED: INSULIN HUMAN NPH SC SCH (09:00)
[2022-01-07 09:45] LABS: Basophils # (auto) 0.03 K/uL (0-0.2); Basophils % (auto) 0.2 %; Eosinophils # (auto) 0.01 K/uL (0-0.5); Eosinophils % (auto) 0.1 %; Hematocrit (blood only) 38.6 % (37-47); Hemoglobin 12.6 g/dL (12.0-16.0); Immature Granulocytes # (auto) 0.35 K/uL (0.00-0.02); Immature Granulocytes % (auto) 1.9 %; Lymphocytes # (auto) 3.11 K/uL (1.2-3.4); Lymphocytes % (auto) 16.5 %; Mean Corpuscular Hemoglobin 31.1 pg (25-34); Mean Corpuscular Hgb Conc 32.6 g/dL (32-36); Mean Corpuscular Volume 95.3 fL (80-100); Mean Platelet Volume 10.6 fL (7.4-10.4); Monocytes # (auto) 1.29 K/uL (0.11-0.59); Monocytes % (auto) 6.9 %; Neutrophils # (auto) 14.02 K/uL (1.4-6.5); Neutrophils % (auto) 74.4 %; Platelet Count 284 K/uL (130-400); RDW Standard Deviation 52.9 fL (36.4-46.3); Red Blood Count 4.05 M/uL (4.2-5.4); White Blood Count 18.81 K/uL (4.8-10.8)
[2022-01-07 10:21] LABS: BUN Creatinine Ratio 41.9 (10-20); Calcium 8.5 mg/dl (8.5-10.1); Creatinine Clr Calc Pharmacy 23.1 ml/min; Est GFR (African American) 33.5 ml/min; Est GFR (Non-African American) 28.9 ml/min; Potassium 4.6 mmol/L (3.5-5.1)
[2022-01-07] MEDS ORDERED: LOSARTAN POTASSIUM 50 MG TAB PO ONE (10:46)
[2022-01-07] MEDS: valACYclovir HCL 500 MG TABLET PO SCH (11:39)
[2022-01-07] MEDS: cefTRIAXone SODIUM 1,000 MG in DEXTROSE 5% 50 ML IV SCH (11:42)
--- NOTE | 2022-01-07 13:06 | Discharge Summary ---
Date of Service January 07, 2022 Admission HPI Per Admitting Provider This patient is an 86-year-old female with a history of DM2, HTN, isolated SVT, GERD/esophageal dysmotility, chronic lower back pain, CKD stage III, MITZY on CPAP, RLS, hyperlipidemia, who presents to the ER with cough, dyspnea on exertion, fever, and wheezing. She has a productive cough and had 1 episode of emesis. In the ER, she was found to be COVID-19 positive, have significant tachypnea with minimal exertion, and wheezing. Her pulse ox at the lowest was 93%. A CT angiogram of the chest was performed which was negative for PE or consolidation or pleural effusion, but did show diffuse peribronchial thickening suggestive of bronchitis/reactive airway disease. She was afebrile and hypertensive and tachypneic with occasional tachycardia in the ER. Her WBC count was elevated and she was also found to have a UTI. She was complaining of some suprapubic abdominal pain as well. In the ER, she was given a DuoNeb treatment, 10 mg of IV dexamethasone, IV Benadryl, and a dose of IV Rocephin for her UTI. She will be admitted for COVID-19 with bronchitis, mild hypoxia, UTI. Principal Diagnosis COVID-19 Discharge Exam General: A&Ox3. NAD. Cooperative. HEENT: Atraumatic, normocephalic. Vision and hearing grossly intact Pulm: Moderate air movement, resolution of prior expiratory wheezes. Trace basilar crackles which improve with deep breathing. No increase in work of breathing. No respiratory distress. Cardiac: RRR, soft systolic murmur. Radial pulses intact and symmetrical. Abdominal: Nontender, nondistended, soft. BS present. Discharge Data Allergies Allergy/AdvReac Type Severity Reaction Status Date / Time valdecoxib Allergy Severe DYSPNEA, Verified 01/02/22 16:34 HAS TOLERATED TORADOL hydrochlorothiazide Allergy Intermediate itching Verified 01/02/22 16:34 [From Dyazide] Iodinated Contrast Media Allergy Intermediate RASH Verified 01/02/22 16:34 triamterene [From Dyazide] Allergy Intermediate itching Verified 01/02/22 16:34 adhesive Allergy Mild CLOTH Verified 01/02/22 16:34 ADHESIVE/BANDAIDS-RASH metformin Allergy Mild Diarrhea Verified 01/02/22 16:34 diltiazem AdvReac bradycardia Verified 04/28/22 09:05 Consultations 01/02/22 15:36 ED Decision to Admit Stat 01/04/22 11:54 Consult Cardiology Routine Ordered Studies 01/02/22 12:35 CT angio chest PE protocol Stat Hospital Course (1) Sepsis: Gris is an 86-year-old female who presented with tachypnea, tachycardia, leukocytosis and who was found to have COVID-19 with symptomatic UTI, and concern on imaging for superimposed bronchitis. She was treated with doxycycline 1 mg twice daily for bronchitis, Rocephin x5 days for her UTI. She completed antibiotics during admission, and clinically improved with normal breathing on room air at time of discharge. She was continued on 5 additional days of Methasone for COVID treatment with close follow-up to her patient providers. Patient has a history of isolated SVT requiring cardioversion, had short self terminating burst of SVT during hospital stay and was started on metoprolol tartrate 25 mg twice daily with overall improvement. Cardiology was consulted, some question of SVT versus rate related bundle branch block. Metoprolol was continued on discharge with patient follow-up to cardiology. She had a mild MIGUEL for which her losartan and remdesivir were held, and thencreatinine was downtrending at time of discharge. She was recommended to have a recheck BMP within 1 week by her primary provider and her losartan was held on discharge, and she is continued on metoprolol as previously noted. To do as outpatient: 1. Complete 5 additional days of dexamethasone for COVID 2. Recheck BMP within 1 week to follow creatinine, resume losartan as needed. 3. Continue metoprolol 25 mg twice daily 4. Follow-up to cardiology for SVT and demand ischemia, outine follow-up to aPCP - Presented with tachypnea, tachycardia, leukocytosis, and found to have COVID- 19 as well as UTI as the source - Recent dx COVID-19 just 6 to 7 weeks ago in November. Suspected Perhaps she has a secondary bacterial acute bronchitis as well as her UTI causing her current symptoms. - Possible COVID-19 test is just persistently positive - CXR neg - CTA without PE, +bronchitis. Completed 5 days of doxycycline 100 mg twice daily for possible superimposed bronchitis - On admit with evidence of endorgan damage with elevated troponin, respiratory failure - Lactate negative, procalcitonin negative -Admitted to PCU for telemetry monitoring given sepsis and history of SVT -Tx ceftriaxone for UTI as well as add doxycycline for bronchitis as noted Blood cultures no growth to date UC pansensitive E. coli, treated for 5 days total (2) COVID-19 virus infection: With wheezing and mild hypoxia with pulse ox 93-94% and significant tachypnea -Dexamethasone started in the ER -continue dexamethasone at 6 mg IV once daily, discharged to complete 10-day course with p.o. 6 mg - Remdesivir x5 day course; discontinued w/ MIGUEL after 3 days -Give flutter valve, incentive spirometry -DuoNebs -Patient reamins on room air -Supplemental O2 as needed he pulse ox greater than 90% - CRP downtrending (3) Supraventricular tachycardia: History of isolated SVT requiring cardioversion Last echo 05/2020 with normal LV size, wall motion, systolic function and mild concentric LVH. Moderate AAS, moderate mitral calcification Due to multiple episodes of short bursts of SVT during hospital stay Started MTP tartrate 25mg BID on 01/04. Did have short self terminating eposide evening 01/05. Cardiology consulted. ?SVT vs rate related BBB. Strips to be reviewed w/ Dr. Alvarado (4) Acute respiratory failure with hypoxia: - Improved - Dexamethasone as noted (5) Hypomagnesemia: Repleated (6) Urinary tract infection: Abnormal UA with suprapubic pain ceftriaxone x5 day course 01/02/22 UC: E coli, pansensitive (7) Elevated troponin I level: Troponin mildly elevated, no chest pain ECG without ischemic changes Serial trop peaked at 66 on admit, downtrending after Likely myocardial demand ischemia in the setting of acute illness and hypoxia (8) Controlled type 2 diabetes mellitus with insulin therapy: Glucose checks AC/at bedtime Goal BSG [id number] Lantus 10 units every morning, NPH 30 units with dexamethasone, aspart SSI CF 15 ratio 6 BMP daily (9) Acid reflux disease with ulcer: Continue Protonix (10) Chronic kidney disease, stage 3 (moderate): Creatinine baseline 1.21.4 creatinine up trended to 1.7, held ARB and discontinued remdesivir, trend BMP -Avoid nephrotoxins -renally dose meds (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: CPAP nightly (12) Depression: Continue home fluoxetine (13) HTN (hypertension): Blood pressures are controlled Continue home losartan (14) Restless legs syndrome: Follows with sleep medicine Continue ropinirole (15) Dyslipidemia: Continue statin (16) Esophageal dysmotility: Noted (17) Zoster ophthalmicus: History of recurrence x3 Remain on valacyclovir for prophylaxis daily DVT prophylaxis-Lovenox, SCDs Disposition-admit to medical floor telemetry DNR/DNI as discussed with patient and her at the bedside Total Time Total Time Spent Total Time Spent (In Minutes): Time spend day of discharge 40 minutes including direct patient care, documentation, review of labs and images, and coordination of care. Discharge Plan Discharge Items Patient Disposition: Home - Self-Care Reason For Visit: DR JUAREZ, ALESSANDRA PNEUMONIA, COUGH, CONGESTION Discharge Diagnosis: COVID19 Activity: Resume your previous activity Non-emergency contact: Primary Care Provider and Hospitalist Call non-emergency contact if: you have any medication questions, your symptoms worsen, your pain is worsening, your pain is unusual for you and you have a fever Follow-up/Referrals: Richmond Adams MD [Physician] - Pro,Flaquito Blank MD [Primary Care Provider] - Diet: Carb Consistent or DM2 Addtl Attending Provider Instructions: You were seen in the hospital for COVID pneumonia with convern for superimposed bronchitis. You were treated with antibiotics and steroids and clinically improved. You have been prescribed medications as noted below. Your kidney function was slightly elevated during admission. Your losartan was held during admission. Your kidney function was improving, but not yet normal at time of discharge. Followup with your outpatient doctor for a repeat BMP (blood work) within 1 week, a blood pressure recheck, and recommendations on when to resume your losartan. You have been prescribed a steroid to help treat COVID19. Please take dexamethasone 6mg by mouth once daily for 5 days, You have been started on a blood pressure medicine both for blood pressure and to control small bursts of a fast heart rate seen during admission. Please continue to take metoprolol tartrate 25mg by mouth twice daily. This can cause low blood pressure, if you experience lightheadedness, dizziness, or low blood pressure please call your extension educator or family doctor for recommendations. If you develop any new or worsening symptoms including fever, chills, sweats, chest pain, chest pressure, difficulty breathing, uncontrolled nausea/vomiting, rash, wheezing, passing out or nearly passing out, bleeding, black/bloody bowel movements, or other new or concerning symptoms please call your primary care physician, or call 911 for re-evaluation in the emergency department if you are very concerned. Pending Studies at Discharge: No Stand-Alone Forms: My [facility], Smoking Cessation Medications and DC Order Prescriptions: New metoprolol tartrate 25 mg Tablet 25 mg PO BID 30 Days Qty: 60 RF: 0 dexamethasone 6 mg tablet 6 mg PO DAILY Qty: 5 RF: 0 Continued valacyclovir [Valtrex] 500 mg tablet 500 mg PO DAILY RF: 0 ropinirole 12 mg tablet extended release 24 hr 12 mg PO HS Qty: 90 RF: 3 rosuvastatin 40 mg tablet 40 mg PO HS Qty: 90 RF: 3 fluoxetine 20 mg capsule 20 mg PO QPM Qty: 30 RF: 5 diphenoxylate-atropine 2.5-0.025 mg tablet 1 tab PO TID PRN (Reason: diarrhea) Qty: 90 RF: 0 famotidine 40 mg tablet 40 mg PO DAILY Qty: 30 RF: 2 esomeprazole magnesium 40 mg capsule,delayed release(DR/EC) 40 mg PO DAILY Qty: 30 RF: 2 triamcinolone acetonide 0.1 % cream 1 applic topical DAILY Qty: 453.6 RF: 0 ascorbic acid (vitamin C) 1,000 mg tablet 1 gm PO QAM RF: 0 calcium carbonate 500 mg calcium (1,250 mg) tablet,chewable 500 mg PO HS RF: 0 cholecalciferol (vitamin D3) 1,000 unit capsule 1,000 units PO HS RF: 0 aspirin [Aspirin Low Dose] 81 mg tablet,delayed release (DR/EC) 81 mg PO Q2D Qty: 30 RF: 3 (DME) OneTouch Verio test strips Strip See Rx Instructions .ROUTE .MEDSUPPLY RF: 0 (DME) lancets [OneTouch Delica Lancets] 30 gauge misc See Rx Instructions .ROUTE .MEDSUPPLY RF: 0 nitroglycerin 0.4 mg tablet, sublingual 0.4 mg SL Q5M PRN (Reason: chest pain) Qty: 25 RF: 3 insulin aspart U-100 [Novolog Flexpen U-100 Insulin] 100 unit/mL (3 mL) insulin pen 8 unit SUBCUT .QSUPPER RF: 0 insulin aspart U-100 [Novolog Flexpen U-100 Insulin] 100 unit/mL (3 mL) insulin pen 5 unit SUBCUT .QLUNCH UD RF: 0 insulin aspart U-100 [Novolog Flexpen U-100 Insulin] 100 unit/mL (3 mL) insulin pen 3 unit subcut .QAM UD RF: 0 Basaglar KwikPen U-100 Insulin 100 unit/mL (3 mL) insulin pen 11 unit SQ BID RF: 0 Discontinued losartan 100 mg tablet 100 mg PO QPM Qty: 90 RF: 3 Discharge Orders: Discharge Order (Routine); Ordered 01/07/22 Ordered By: Ashu Mackenzie/Other Patient Handouts: Managing Type 2 Diabetes Admission Data Admit Date/Time: 01/02/22 17:45 Attending Provider: Ashu Kasper Admit Provider: Josephine Gambino Primary Care Provider: Flaquito Espinoza Other Providers: Josephine Gambino ; Justin Curtis ; Richmond Adams ; Flaquito Biggs ; Olaf Faulkner ; Adam Ocasio ; Wilmer Adams Jr ; John Srinivasan ; Susu Huff ; Constance Hill ; Mason Ibarra ; Guero Alvarado ; Yves Valencia ; Alyssa Garcia ; Desire Encarnacion ; Pedro Aguilar ; Cayetano Gleason Michael K. ; Demond Recinos Other Interventions: Discharge Summary Assessment (RN) Last Done: 01/07/22 11:34 Coding Level of Care Code D/C DAY MANAGEMENT >30 MINS Diagnoses Sepsis A41.9 COVID-19 virus infection U07.1 Supraventricular tachycardia I47.1 Acute respiratory failure with hypoxia J96.01 Hypomagnesemia E83.42 Urinary tract infection N39.0 Hematuria presence: without hematuria Urinary tract infection type: site unspecified Elevated troponin I level R77.8 Controlled type 2 diabetes mellitus with insulin therapy E11.9; Z79.4 Acid reflux disease with ulcer K21.9 Chronic kidney disease, stage 3 (moderate) N18.3 Complex sleep apnea syndrome G47.31 Depression F32.9 HTN (hypertension) I10 Restless legs syndrome G25.81 Dyslipidemia E78.5 Esophageal dysmotility K22.4 Zoster ophthalmicus B02.30
== END 2022-01-07 14:13 | disposition home or self-care (01) | DRG 871 ==
LOC: ED 09:05 → SUATTDRO 17:45 → 2N 17:45

== ENCOUNTER 2022-01-12 10:59 | Inpatient (IN) ==
[2022-01-12] MEDS ORDERED: ALBUT/IPRATROP 3MG/0.5MG NEB 3 ML VIAL NEB STA ×2 (11:50→14:47)
--- NOTE | 2022-01-12 12:10 | XRay Report ---
XR chest 1V portable CLINICAL HISTORY: Sepsis. COMPARISON STUDY: Chest CT January 02, 2022. Chest radiograph January 07, 2022. FINDINGS: Kyphotic positioning is noted. Low lung volumes suggest a hypoventilatory study. Cardiomega ly is unchanged. No evidence for pulmonary edema. No pneumothorax or pleural effusion is noted. Incre ased bibasilar markings represent vessels or atelectasis. IMPRESSION: No acute cardiopulmonary findings. Hypoventilatory study. ACT 112: Negative or not required by law. Electronically signed by: Asim Lopez M.D. 01/12/2022 12:09 PM
[2022-01-12 12:36] LABS: Basophils # (auto) 0.02 K/uL (0-0.2); Basophils % (auto) 0.1 %; Eosinophils # (auto) 0.02 K/uL (0-0.5); Eosinophils % (auto) 0.1 %; Hematocrit (blood only) 40.1 % (37-47); Hemoglobin 13.1 g/dL (12.0-16.0); Immature Granulocytes # (auto) 0.31 K/uL (0.00-0.02); Immature Granulocytes % (auto) 1.6 %; Lymphocytes # (auto) 1.58 K/uL (1.2-3.4); Lymphocytes % (auto) 8.3 %; Mean Corpuscular Hemoglobin 30.5 pg (25-34); Mean Corpuscular Hgb Conc 32.7 g/dL (32-36); Mean Corpuscular Volume 93.3 fL (80-100); Mean Platelet Volume 10.8 fL (7.4-10.4); Monocytes % (auto) 2.1 %; Neutrophils # (auto) 16.75 K/uL (1.4-6.5); Neutrophils % (auto) 87.8 %; Platelet Count 205 K/uL (130-400); RDW Coefficient of Variation 15.4 % (11.5-14.5); RDW Standard Deviation 52.4 fL (36.4-46.3); White Blood Count 19.08 K/uL (4.8-10.8)
[2022-01-12 12:40] LABS: Base Excess VBG -1.2 mEq/L; Oxygen Saturation VBG 96.6 %; pH VBG 7.44 (7.36-7.41)
[2022-01-12 12:41] LABS: Partial Thromboplastin Ratio 0.9; Partial Thromboplastin Time 23.7 Seconds (21.0-31.0); Prothrombin Time 10.7 Seconds (9.0-12.0)
[2022-01-12 12:54] LABS: Alanine Aminotransferase 68 U/L (7-52); Albumin Globulin Ratio 1.2 (0.9-2); Albumin Level 3.1 gm/dl (3.4-5.0); Alkaline Phosphatase 139 U/L (34-104); Anion Gap 7 (3-11); Aspartate Aminotransferase 41 U/L (13-39); BUN Creatinine Ratio 35.2 (10-20); Bilirubin,Total 0.5 mg/dl (0.2-1.0); Blood Urea Nitrogen 44 mg/dl (6-23); Calcium 8.5 mg/dl (8.5-10.1); Carbon Dioxide 22 mmol/L (21-32); Chloride 107 mmol/L (98-107); Est GFR (African American) 45.1 ml/min; Est GFR (Non-African American) 38.9 ml/min; Globulin 2.5 gm/dl (2.5-4.0); Glucose 240 mg/dl (70-99(Fasting)); Lipase 79 U/L (11-82); Magnesium 1.9 mg/dl (1.7-2.4); Potassium 4.1 mmol/L (3.5-5.1); Sodium 136 mmol/L (136-145); Total Protein 5.6 gm/dl (6.0-8.3)
--- NOTE | 2022-01-12 13:13 | CT Scan Report ---
HEAD CT NONCONTRAST CT DOSE: 537.48 mGy.cm HISTORY: Altered mental status. Weakness. Confusion. TECHNIQUE: Multiaxial CT images of the head were performed without the use of intravenous contrast. A utomated exposure control was utilized for this study. A dose lowering technique was utilized adheri ng to the principles of ALARA. Comparison: Head CT 11/11/2012. Findings: Trace fluid level within the right sphenoid sinus. The mastoid air cells are clear. Vascula r calcifications are noted at the skull base. The calvarium and skull base are intact. There is no ma ss, hematoma, midline shift, acute infarct. White matter hypodensity is nonspecific but suggestive of microvascular ischemic change. The ventricles and sulci demonstrate mild age-related involutional ch anges. Impression: No acute intracranial abnormality. Atrophy and microvascular ischemic changes. ACT 112: Negative or not required by law. Electronically signed by: Paul High M.D. 01/12/2022 1:11 PM
--- NOTE | 2022-01-12 14:42 | Electrocardiogram Report ---
Test Reason : Blood Pressure : / mmHG Vent. Rate : 115 BPM Atrial Rate : 087 BPM P-R Int : 000 ms QRS Dur : 110 ms QT Int : 354 ms P-R-T Axes : 000 -33 092 degrees QTc Int : 489 ms Atrial flutter or atrial tachycardia with rapid ventricular response with premature ventricular or a berrantly conducted complexes Left axis deviation Incomplete left bundle block Moderate voltage criteria for LVH, may be normal variant Nonspecific ST and T wave abnormality Abnormal ECG When compared with ECG of 02-JAN-2022 09:21, atrial flutter has replaced Sinus rhythm Confirmed by Adam Ocasio ([id number]) on 01/12/2022 2:41:37 PM Referred By: Confirmed By:Adam Ocasio
--- NOTE | 2022-01-12 14:44 | Emergency Department Note ---
History of Present Illness General Chief complaint: Respiratory Problems Stated complaint: SOB, TROUBLE SPEAKING Time Seen by Provider: 01/12/22 11:31 Source: patient and family (spouse at bedside) History of Present Illness Provider complaint: Shortness of breath weakness confusion Onset (ago): day(s) 4 86-year-old female presents emergency department for difficulty breathing weakness and confusion. Patient is brought in by her . reports that the patient has been having increased weakness difficulty breathing wheezing and confusion since Sunday. He reports she was recently discharged from the hospital. Home Medications Medication Instructions Recorded Confirmed Type cholecalciferol (vitamin D3) 25 1,000 units PO HS 03/14/19 01/12/22 History mcg (1,000 unit) capsule ascorbic acid (vitamin C) 1,000 mg 1 gm PO QAM tab 05/16/19 01/12/22 History tablet calcium carbonate 500 mg calcium 500 mg PO HS tab 05/16/19 01/12/22 History (1,250 mg) chewable tablet aspirin 81 mg tablet,delayed 81 mg PO Q2D #30 tab 03/29/21 01/12/22 Rx release (Aspirin Low Dose) ropinirole 12 mg tablet,extended 12 mg PO HS #90 tab 04/04/21 01/12/22 Rx release 24 hr blood sugar [facility] 05/12/21 01/02/22 History Verio test strips) [facility]/12/21 01/02/22 History Lancets) rosuvastatin 40 mg tablet 40 mg PO HS #90 tab 07/27/21 01/12/22 Rx nitroglycerin 0.4 mg sublingual 0.4 mg SL Q5M PRN #25 tab 10/11/21 01/12/22 Rx tablet diphenoxylate-atropine 2.5 1 tab PO TID PRN #90 tab 12/12/21 01/12/22 Rx mg-0.025 mg tablet insulin aspart U-100 100 unit/mL See Rx Instructions .ROUTE .COMPLEX 01/02/22 01/12/22 History (3 mL) subcutaneous pen (Novolog Flexpen U-100 Insulin aspart) insulin glargine 100 unit/mL (3 11 unit SQ BID 01/02/22 01/12/22 History mL) subcutaneous pen (Basaglar KwikPen U-100 Insulin) metoprolol tartrate 25 mg tablet 25 mg PO BID 30 Days #60 tab 01/07/22 01/12/22 Rx benzonatate 100 mg capsule 100 mg PO TID #20 cap 01/12/22 01/12/22 Rx dexamethasone 6 mg tablet 6 mg PO QAM 01/12/22 01/12/22 History esomeprazole magnesium 40 mg 40 mg PO QAM 01/12/22 01/12/22 History capsule,delayed release (Nexium) famotidine 40 mg tablet 40 mg PO HS 01/12/22 01/12/22 History fluoxetine 20 mg capsule 20 mg PO HS 01/12/22 01/12/22 History valacyclovir 1 gram tablet 1,000 mg PO BID 01/12/22 01/12/22 History Allergies Allergy/AdvReac Type Severity Reaction Status Date / Time valdecoxib Allergy Severe DYSPNEA, Verified 01/12/22 14:15 HAS TOLERATED TORADOL hydrochlorothiazide Allergy Intermediate itching Verified 01/12/22 14:15 [From Dyazide] Iodinated Contrast Media Allergy Intermediate RASH Verified 01/12/22 14:15 triamterene [From Dyazide] Allergy Intermediate itching Verified 01/12/22 14:15 adhesive Allergy Mild CLOTH Verified 01/12/22 14:15 ADHESIVE/BANDAIDS-RASH metformin Allergy Mild Diarrhea Verified 01/12/22 14:15 diltiazem AdvReac bradycardia Verified 01/12/22 14:15 Past Med/Surg History Medical History Anxiety Chronic kidney disease, stage 3 Follows with neprho- stable- baseline creat 1.3 since February 2010 Chronic low back pain Chronic SI joint pain Diabetes mellitus, type 2 Follows with endo DSAP (disseminated superficial actinic porokeratosis) Dyslipidemia Dysphagia Esophageal dysmotility GERD (gastroesophageal reflux disease) Hyperlipidemia Hypertension Restless leg syndrome Sensory hearing loss, bilateral Sleep apnea cpap Spinal stenosis Zoster ophthalmicus Surgical History History of arthroscopy of right knee History of bilateral cataract extraction History of bilateral tubal ligation History of bladder surgery bladder tuck x2 History of cardiac cath 1997 @ [facility] [place] no stent--d/t heart failure History of carpal tunnel release of both wrists History of colonoscopy History of dilatation and curettage History of elbow surgery LEFT/RT History of esophageal dilatation History of esophagogastroduodenoscopy (EGD) History of left breast biopsy benign History of lumbar spinal fusion History of lumpectomy of left breast benign History of open reduction and internal fixation (ORIF) procedure right leg--hardware in place History of right breast biopsy benign History of surgical procedure on mouth removed benign tissue from lower jaw History of toe surgery big toe History of tonsillectomy and adenoidectomy History of tooth extraction all teeth removed History of total hysterectomy with bilateral salpingo-oophorectomy (BSO) History of total left knee replacement (TKR) x2 History of total right knee replacement (TKR) x2 Hx of repair of left rotator cuff x2 Hx of repair of right rotator cuff S/P appendectomy S/P exploratory laparotomy Family History Mother Heart disease Myocardial infarction Family/Other Arthritis Father Asthma Sister Ovarian cancer Heart disease Family history of diabetes mellitus Sister Family history of diabetes mellitus Other No family history of adverse response to anesthesia Denies family history of Prostate cancer Kidney disease Breast cancer Colorectal cancer Social History Smoking Status: Never smoker Second Hand Exposure: Yes ( SMOKED IN THE PAST); Hx Alcohol Use: No Hx Substance Use: No Preferred Language: Argentine Communication Ability: Effective Grain Broker Required: No Beliefs That Will Affect Care: None marital status: Current Living Situation: Spouse current occupational status: retired Feels Safe at Home: Yes Childhood Exposure to Second-Hand Smoke: Yes Dental Care, Regularly: No Physical Activity Frequency: Does not Exercise Seatbelt Use: always Sunscreen Use: Yes Assistive Devices: Cane, CPAP, Glasses and Walker Review of Systems A total of 10 systems reviewed and were otherwise negative Physical Exam Vital Signs Vital Signs - 24 hr 01/12/22 11:04 01/12/22 11:37 01/12/22 13:00 Temperature 36 C L Temperature Source Temporal Artery Scan Pulse Rate 114 H Pulse Rate [Right Finger] 96 H Pulse Rhythm [Right Finger] Irregular Pulse Strength [Right Finger] Normal Respiratory Rate 20 18 Respiratory Effort / Characteristics Non-Labored Non-Labored Non-Labored Respiratory Depth Normal Normal Normal Respiratory Pattern Regular Blood Pressure 134/69 Blood Pressure [Left Arm] 145/77 H Blood Pressure Mean 90 Blood Pressure Mean [Left Arm] 99 Blood Pressure Position [Left Arm] Lying Pulse Oximetry 96 95 96 Oxygen Delivery Method Room Air Room Air Room Air Sepsis Recent Fever Within 48 Hours No Sepsis New/Unexplained Change in Mental Status No Sepsis Action Taken by Nursing No Action Required Physical Exam HENT: Exam performed. -Head: Normocephalic and atraumatic. -Right Ear: External ear normal. No mastoid tenderness. -Left Ear: External ear normal. No mastoid tenderness. -Mouth/Throat: The oropharynx is clear and moist. No trismus in the jaw. No dental abscesses or uvula swelling. No oropharyngeal exudate or tonsillar abscesses. EYES: Conjunctivae and EOM are normal. Pupils are equal, round, and reactive to light. Right eye exhibits no discharge. Left eye exhibits no discharge. No scleral icterus. NECK: Normal range of motion. Neck supple. No JVD present. No spinous process tenderness present. No carotid bruit present. No rigidity. No tracheal deviation and normal range of motion present. No Brudzinski's sign and no Kernig's sign noted. CV: Normal rate, regular rhythm, normal heart sounds and intact distal pulses. There is no peripheral edema. Palpable radial pulses bue. PULM/CHEST: Diffuse expiratory wheezes bilaterally. -Chest Wall: She exhibits no tenderness. ABD: The abdomen is soft. Bowel sounds are normal. She has no distension. No mass is present. There is no tenderness. There is no rebound, no guarding, no Oates's sign and no tenderness at McBurney's point. Rovsig negative MUSC/SKEL: Normal range of motion. There is no peripheral edema, tenderness or deformity. LYMPH: No cervical adenopathy. NEURO: She is alert and oriented to person, place, and time. She has normal strength. No cranial nerve deficit or sensory deficit. Coordination and gait normal. GCS eye subscore is 4. GCS verbal subscore is 5. GCS motor subscore is 6. Cerebellar tests wnl. SKIN: Skin is warm and dry. She is not diaphoretic. PSYCH: She has a normal mood and affect. Behavior is normal. Judgment and thought content normal. Course Course 1131: The patient was evaluated in room B8. A complete history and physical exam was performed Cardiac monitoring: An order was placed for continuous cardiac monitoring. The monitor shows a rate of 100 with atrial flutter rhythm EMR reviewed. Patient was admitted to the hospital from January 02 January 07, 2002. Patient was admitted for sepsis secondary to UTI and COVID. She was treated with Rocephin for UTI and doxycycline for bronchitis. During her admission she had an episode of SVT requiring cardioversion and was started on metoprolol. 1625: Vital signs stable. Patient does appear to be in a new atrial flutter. Labs show leukocytosis of 19 AST/ALT of 41 and 68 respectively. Alkaline phosphatase 139. Creatinine 1.25. Troponin elevated at 41.7, this is better than her previous troponins. BNP elevated at 600. Procalcitonin negative. Urinalysis negative for bacteria. CTA of the chest was ordered given the patient's new onset atrial flutter, no large central pulmonary embolus however there are filling defects within the segmental and subsegmental pulmonary artery branches however likely to be secondary to mixing artifact. I discussed the case with Dr. Claros cardiology and given the patient's new onset atrial flutter as well as these appear filling defects patient will be started empirically on heparin. Lasix ordered for the patient. [facility]. Administered Medications Discontinued Medications Albuterol (Albut/Ipratrop 3mg/0.5mg Neb 3 Ml Vial) 3 ml NEB NOW STA; Protocol Stop: 01/12/22 11:51 Last Admin: 01/12/22 13:11 Dose: 3 ml Documented by: [id number] Albuterol (Albut/Ipratrop 3mg/0.5mg Neb 3 Ml Vial) 3 ml NEB NOW STA; Protocol Stop: 01/12/22 14:48 Last Admin: 01/12/22 15:16 Dose: 3 ml Documented by: [id number] Diphenhydramine HCl (Diphenhydramine 50 Mg/Ml Vial) 25 mg IV NOW STA Stop: 01/12/22 15:00 Last Admin: 01/12/22 15:16 Dose: 25 mg Documented by: [id number] Ioversol (Optiray 320 125ml) 118 ml IV ONCE ONE Stop: 01/12/22 15:53 Last Admin: 01/12/22 15:53 Dose: 118 ml Documented by: [id number] Methylprednisolone (Methylprednisolone 125 Mg/2 Ml Vial) 125 mg IV NOW STA Stop: 01/12/22 15:00 Last Admin: 01/12/22 15:16 Dose: 125 mg Documented by: [id number] Critical Care Time Critical Care Time: Yes Total Critical Care Time: 68 I have personally spent greater than 68 minutes of critical care time in the direct management of this patient. This includes bedside care, interpretation of diagnostic studies, and testing, discussion with consultants, patient, and family members, and other required patient management activities. This 68 minutes is in excess of all separately billable procedures. Medical Decision Making Laboratory Data Result diagrams: 01/12/22 12:18 01/12/22 12:18 Lab Results 01/12/22 01/12/22 01/12/22 Range/Units 12:18 12:18 12:18 WBC 19.08 H (4.8-10.8) K/uL RBC 4.30 (4.2-5.4) M/uL Hgb 13.1 (12.0-16.0) g/dL Hct 40.1 (37-47) % MCV 93.3 (80-100) fL MCH 30.5 (25-34) pg MCHC 32.7 (32-36) g/dL RDW Std Deviation 52.4 H (36.4-46.3) fL RDW Coeff of Alli 15.4 H (11.5-14.5) % Plt Count 205 (130-400) K/uL MPV 10.8 H (7.4-10.4) fL Immature Gran % (Auto) 1.6 % Neut % (Auto) 87.8 % Lymph % (Auto) 8.3 % [place] % (Auto) 2.1 % Eos % (Auto) 0.1 % Baso % (Auto) 0.1 % Neut # (Auto) 16.75 H (1.4-6.5) K/uL Lymph # (Auto) 1.58 (1.2-3.4) K/uL [place] # (Auto) 0.40 (0.11-0.59) K/uL Eos # (Auto) 0.02 (0-0.5) K/uL Baso # (Auto) 0.02 (0-0.2) K/uL Immature Gran # (Auto) 0.31 H (0.00-0.02) K/uL PT 10.7 (9.0-12.0) Seconds INR 1.0 (0.9-1.1) APTT 23.7 (21.0-31.0) Seconds PTT Ratio 0.9 VBG pH (7.36-7.41) VBG pCO2 (38-50) mmHg VBG pO2 mmHg VBG HCO3 mmol/L VBG O2 Saturation % VBG Base Excess mEq/L Barometric Pressure mm/Hg Sodium (136-145) mmol/L Potassium (3.5-5.1) mmol/L Chloride (98-107) mmol/L Carbon Dioxide (21-32) mmol/L Anion Gap (3-11) BUN (6-23) mg/dl Creatinine (0.6-1.2) mg/dl Est Cr Clr Drug Dosing Est GFR ( Amer) ml/min Est GFR (Non-Af Amer) ml/min BUN/Creatinine Ratio (10-20) Glucose (70-99(Fasting)) mg/dl Lactate (0.4-2.0) mmol/L Calcium (8.5-10.1) mg/dl Magnesium (1.7-2.4) mg/dl Total Bilirubin (0.2-1.0) mg/dl AST (13-39) U/L ALT (7-52) U/L Alkaline Phosphatase (34-104) U/L Troponin I High Sens 41.7 H D (0-14) pg/ml B-Natriuretic Peptide (0-100) pg/ml Total Protein (6.0-8.3) gm/dl Albumin (3.4-5.0) gm/dl Globulin (2.5-4.0) gm/dl Albumin/Globulin Ratio (0.9-2) Lipase (11-82) U/L Procalcitonin (0-0.5) ng/ml Urine Color Urine Appearance (Clear) Urine pH (4.5-7.5) Ur Specific [place] (1.000-1.030) Urine Protein (Negative) Urine Glucose (UA) (Negative) Urine Ketones (Negative) Urine Blood (Negative) Urine Nitrite (Negative) Urine Bilirubin (Negative) Urine Urobilinogen (Negative) Ur Leukocyte Esterase (Negative) Urine WBC (Auto) (0-5) /hpf Urine RBC (Auto) (0-4) /hpf U Hyaline Cast (Auto) (0-5) /lpf U Epithel Cells (Auto) (0-5) /lpf Urine Bacteria (Auto) (Negative) 01/12/22 01/12/22 01/12/22 Range/Units 12:18 12:18 12:18 WBC (4.8-10.8) K/uL RBC (4.2-5.4) M/uL Hgb (12.0-16.0) g/dL Hct (37-47) % MCV (80-100) fL MCH (25-34) pg MCHC (32-36) g/dL RDW Std Deviation (36.4-46.3) fL RDW Coeff of Alli (11.5-14.5) % Plt Count (130-400) K/uL MPV (7.4-10.4) fL Immature Gran % (Auto) % Neut % (Auto) % Lymph % (Auto) % [place] % (Auto) % Eos % (Auto) % Baso % (Auto) % Neut # (Auto) (1.4-6.5) K/uL Lymph # (Auto) (1.2-3.4) K/uL [place] # (Auto) (0.11-0.59) K/uL Eos # (Auto) (0-0.5) K/uL Baso # (Auto) (0-0.2) K/uL Immature Gran # (Auto) (0.00-0.02) K/uL PT (9.0-12.0) Seconds INR (0.9-1.1) APTT (21.0-31.0) Seconds PTT Ratio VBG pH (7.36-7.41) VBG pCO2 (38-50) mmHg VBG pO2 mmHg VBG HCO3 mmol/L VBG O2 Saturation % VBG Base Excess mEq/L Barometric Pressure mm/Hg Sodium 136 (136-145) mmol/L Potassium 4.1 (3.5-5.1) mmol/L Chloride 107 (98-107) mmol/L Carbon Dioxide 22 (21-32) mmol/L Anion Gap 7 (3-11) BUN 44 H (6-23) mg/dl Creatinine 1.25 H (0.6-1.2) mg/dl Est Cr Clr Drug Dosing Not Reportable Est GFR ( Amer) 45.1 ml/min Est GFR (Non-Af Amer) 38.9 ml/min BUN/Creatinine Ratio 35.2 H (10-20) Glucose 240 H (70-99(Fasting)) mg/dl Lactate 1.2 (0.4-2.0) mmol/L Calcium 8.5 (8.5-10.1) mg/dl Magnesium 1.9 (1.7-2.4) mg/dl Total Bilirubin 0.5 (0.2-1.0) mg/dl AST 41 H (13-39) U/L ALT 68 H (7-52) U/L Alkaline Phosphatase 139 H (34-104) U/L Troponin I High Sens (0-14) pg/ml B-Natriuretic Peptide (0-100) pg/ml Total Protein 5.6 L (6.0-8.3) gm/dl Albumin 3.1 L (3.4-5.0) gm/dl Globulin 2.5 (2.5-4.0) gm/dl Albumin/Globulin Ratio 1.2 (0.9-2) Lipase 79 (11-82) U/L Procalcitonin < 0.05 (0-0.5) ng/ml Urine Color Urine Appearance (Clear) Urine pH (4.5-7.5) Ur Specific [place] (1.000-1.030) Urine Protein (Negative) Urine Glucose (UA) (Negative) Urine Ketones (Negative) Urine Blood (Negative) Urine Nitrite (Negative) Urine Bilirubin (Negative) Urine Urobilinogen (Negative) Ur Leukocyte Esterase (Negative) Urine WBC (Auto) (0-5) /hpf Urine RBC (Auto) (0-4) /hpf U Hyaline Cast (Auto) (0-5) /lpf U Epithel Cells (Auto) (0-5) /lpf Urine Bacteria (Auto) (Negative) 01/12/22 01/12/22 01/12/22 Range/Units 12:18 12:59 14:00 WBC (4.8-10.8) K/uL RBC (4.2-5.4) M/uL Hgb (12.0-16.0) g/dL Hct (37-47) % MCV (80-100) fL MCH (25-34) pg MCHC (32-36) g/dL RDW Std Deviation (36.4-46.3) fL RDW Coeff of Alli (11.5-14.5) % Plt Count (130-400) K/uL MPV (7.4-10.4) fL Immature Gran % (Auto) % Neut % (Auto) % Lymph % (Auto) % [place] % (Auto) % Eos % (Auto) % Baso % (Auto) % Neut # (Auto) (1.4-6.5) K/uL Lymph # (Auto) (1.2-3.4) K/uL [place] # (Auto) (0.11-0.59) K/uL Eos # (Auto) (0-0.5) K/uL Baso # (Auto) (0-0.2) K/uL Immature Gran # (Auto) (0.00-0.02) K/uL PT (9.0-12.0) Seconds INR (0.9-1.1) APTT (21.0-31.0) Seconds PTT Ratio VBG pH 7.44 H (7.36-7.41) VBG pCO2 34 L (38-50) mmHg VBG pO2 84 mmHg VBG HCO3 22 mmol/L VBG O2 Saturation 96.6 % VBG Base Excess -1.2 mEq/L Barometric Pressure 734.7 mm/Hg Sodium (136-145) mmol/L Potassium (3.5-5.1) mmol/L Chloride (98-107) mmol/L Carbon Dioxide (21-32) mmol/L Anion Gap (3-11) BUN (6-23) mg/dl Creatinine (0.6-1.2) mg/dl Est Cr Clr Drug Dosing Est GFR ( Amer) ml/min Est GFR (Non-Af Amer) ml/min BUN/Creatinine Ratio (10-20) Glucose (70-99(Fasting)) mg/dl Lactate (0.4-2.0) mmol/L Calcium (8.5-10.1) mg/dl Magnesium (1.7-2.4) mg/dl Total Bilirubin (0.2-1.0) mg/dl AST (13-39) U/L ALT (7-52) U/L Alkaline Phosphatase (34-104) U/L Troponin I High Sens (0-14) pg/ml B-Natriuretic Peptide 600 H (0-100) pg/ml Total Protein (6.0-8.3) gm/dl Albumin (3.4-5.0) gm/dl Globulin (2.5-4.0) gm/dl Albumin/Globulin Ratio (0.9-2) Lipase (11-82) U/L Procalcitonin (0-0.5) ng/ml Urine Color Yellow Urine Appearance Clear (Clear) Urine pH 6.0 (4.5-7.5) Ur Specific [place] 1.011 (1.000-1.030) Urine Protein 1+ H (Negative) Urine Glucose (UA) Trace H (Negative) Urine Ketones Negative (Negative) Urine Blood Trace H (Negative) Urine Nitrite Negative (Negative) Urine Bilirubin Negative (Negative) Urine Urobilinogen Negative (Negative) Ur Leukocyte Esterase Negative (Negative) Urine WBC (Auto) 1-5 (0-5) /hpf Urine RBC (Auto) 0-4 (0-4) /hpf U Hyaline Cast (Auto) 1-5 (0-5) /lpf U Epithel Cells (Auto) 10-20 H (0-5) /lpf Urine Bacteria (Auto) Negative (Negative) Imaging Data Radiologist's Impression: Chest X-Ray 01/12/22 11:37 XR chest 1V portable CLINICAL HISTORY: Sepsis. COMPARISON STUDY: Chest CT January 02, 2022. Chest radiograph January 07, 2022. FINDINGS: Kyphotic positioning is noted. Low lung volumes suggest a hypoventilatory study. Cardiomegaly is unchanged. No evidence for pulmonary edema. No pneumothorax or pleural effusion is noted. Increased bibasilar markings represent vessels or atelectasis. IMPRESSION: No acute cardiopulmonary findings. Hypoventilatory study. ACT 112: Negative or not required by law. Electronically signed by: Asim Lopez M.D. 01/12/2022 12:[address] 01/12/22 11:[address] DOSE: 537.48 mGy.cm HISTORY: Altered mental status. Weakness. Confusion. TECHNIQUE: Multiaxial CT images of the head were performed without the use of intravenous contrast. Automated exposure control was utilized for this study. A dose lowering technique was utilized adhering to the principles of ALARA. Comparison: Head CT 11/11/2012. Findings: Trace fluid level within the right sphenoid sinus. The mastoid air cells are clear. Vascular calcifications are noted at the skull base. The calvarium and skull base are intact. There is no mass, hematoma, midline shift, acute infarct. White matter hypodensity is nonspecific but suggestive of microvascular ischemic change. The ventricles and sulci demonstrate mild age- related involutional changes. Impression: No acute intracranial abnormality. Atrophy and microvascular ischemic changes. ACT 112: Negative or not required by law. Electronically signed by: Paul High M.D. 01/12/2022 1:11 PM Chest CTA 01/12/22 14:54 CT angio chest PE protocol CT DOSE: 505.91 mGy.cm HISTORY: 86 years-old Female with ro PE. Acute shortness of breath. COVID Positive. TECHNIQUE: Multiple CTA images of the chest were obtained after the intravenous administration of 118 ml Optiray. Coronal and sagittal MIPS were obtained from the axial data set and were submitted for review. All measurements were obtained according to NASCET criteria. A dose lowering technique was utilized adhering to the principles of ALARA. COMPARISON: Chest radiograph of same day, CTA chest 01/02/2022 FINDINGS: CTA: The heart is mildly enlarged. Extensive coronary artery and mitral annular calcifications. No pericardial effusion. The left heart structures are not well opacified. Atherosclerosis of the thoracic aorta. Opacified venous structures of the right upper extremity and chest. Suboptimal opacification of the pulmonary artery secondary to contrast bolus timing. Apparent filling defects are noted within numerous segmental and subsegmental pulmonary arteries which is likely secondary to mixing artifact. CT CHEST: No thyroid nodule or pathologically enlarged lymph nodes within the chest. There is no pneumothorax or pleural effusion. Bronchial wall thickening is noted with mild mucous plugging within the lung bases. Additionally, there is mild intralobular septal thickening. Bibasilar subsegmental groundglass densities suggest atelectasis. No acute process of the imaged upper abdomen. Degenerative changes of the shoulders and spine. IMPRESSION: 1. Limited evaluation of the pulmonary arterial tree secondary to contrast bolus timing. No central pulmonary emboli are identified. Apparent filling defects within the segmental and subsegmental pulmonary arterial branches is likely secondary to mixing artifact. 2. Cardiomegaly with interval development of mild intralobular septal thickening suggestive of developing interstitial pulmonary edema. 3. Unchanged bronchial wall thickening. 4. Mild bibasilar atelectasis. ACT 112: Negative or not required by law. The above report was generated using voice recognition software. It may contain grammatical, syntax or spelling errors. Electronically signed by: Suleman Parker M.D. 01/12/2022 4:05 PM ECG Data Indication: + SOB/dyspnea Rate (beats per minute): 115 Rhythm: + atrial flutter ECG Intervals/blocks: + Normal QRS and + Normal QT-c ECG ST segments: + Normal ST segments [facility] Narrative 1131: The patient was evaluated in room B8. A complete history and physical exam was performed Cardiac monitoring: An order was placed for continuous cardiac monitoring. The monitor shows a rate of 100 with atrial flutter rhythm EMR reviewed. Patient was admitted to the hospital from January 02 January 07, 2002. Patient was admitted for sepsis secondary to UTI and COVID. She was treated with Rocephin for UTI and doxycycline for bronchitis. During her admission she had an episode of SVT requiring cardioversion and was started on metoprolol. 1625: Vital signs stable. Patient does appear to be in a new atrial flutter. Labs show leukocytosis of 19 AST/ALT of 41 and 68 respectively. Alkaline phosphatase 139. Creatinine 1.25. Troponin elevated at 41.7, this is better than her previous troponins. BNP elevated at 600. Procalcitonin negative. U rinalysis negative for bacteria. CTA of the chest was ordered given the patient's new onset atrial flutter, no large central pulmonary embolus however there are filling defects within the segmental and subsegmental pulmonary artery branches however likely to be secondary to mixing artifact. I discussed the case with Dr. Claros cardiology and given the patient's new onset atrial flutter as well as these appear filling defects patient will be started empirically on heparin. Lasix ordered for the patient. [facility]. Impression & Plan Atrial flutter, Pulmonary edema Discharge Plan Visit Data Chief Complaint: Respiratory Problems Stated Complaint: SOB, TROUBLE SPEAKING ED Provider: Peyman Mace Discharge Problem: Atrial flutter, Pulmonary edema Patient Disposition: Admitted As Inpatient Forms Stand Alone Forms: My [facility] Prescriptions Prescriptions: No Action ropinirole 12 mg tablet extended release 24 hr 12 mg PO HS Qty: 90 RF: 3 rosuvastatin 40 mg tablet 40 mg PO HS Qty: 90 RF: 3 diphenoxylate-atropine 2.5-0.025 mg tablet 1 tab PO TID PRN (Reason: diarrhea) Qty: 90 RF: 0 benzonatate 100 mg capsule 100 mg PO TID Qty: 20 RF: 0 ascorbic acid (vitamin C) 1,000 mg tablet 1 gm PO QAM RF: 0 calcium carbonate 500 mg calcium (1,250 mg) tablet,chewable 500 mg PO HS RF: 0 cholecalciferol (vitamin D3) 1,000 unit capsule 1,000 units PO HS RF: 0 aspirin [Aspirin Low Dose] 81 mg tablet,delayed release (DR/EC) 81 mg PO Q2D Qty: 30 RF: 3 (DME) OneTouch Verio test strips Strip See Rx Instructions .ROUTE .MEDSUPPLY RF: 0 (DME) lancets [OneTouch Delica Lancets] 30 gauge misc See Rx Instructions .ROUTE .MEDSUPPLY RF: 0 nitroglycerin 0.4 mg tablet, sublingual 0.4 mg SL Q5M PRN (Reason: chest pain) Qty: 25 RF: 3 insulin aspart U-100 [Novolog Flexpen U-100 Insulin] 100 unit/mL (3 mL) insulin pen See Rx Instructions .ROUTE .COMPLEX RF: 0 Basaglar KwikPen U-100 Insulin 100 unit/mL (3 mL) insulin pen 11 unit SQ BID RF: 0 metoprolol tartrate 25 mg Tablet 25 mg PO BID 30 Days Qty: 60 RF: 0 valacyclovir 1 gram tablet 1,000 mg PO BID RF: 0 famotidine 40 mg tablet 40 mg PO HS RF: 0 dexamethasone 6 mg tablet 6 mg PO QAM RF: 0 esomeprazole magnesium [Nexium] 40 mg capsule,delayed release(DR/EC) 40 mg PO QAM RF: 0 fluoxetine 20 mg capsule 20 mg PO HS RF: 0 Referrals Referrals: Flaquito Espinoza MD [Primary Care Provider] -
[2022-01-12 14:47] LABS: Appearance Urine Clear (Clear); Bacteria Urine Automated Negative (Negative); Bilirubin Urine Negative (Negative); Blood Urine Trace (Negative); Color Urine Yellow; Glucose Urine UA Trace (Negative); Ketones Urine Negative (Negative); Leukocyte Esterase Urine Negative (Negative); Nitrite Urine Negative (Negative); Protein Urine 1+ (Negative); RBC Urine Automated 0-4 /hpf (0-4); Specific Gravity Urine 1.011 (1.000-1.030); Urobilinogen Urine Negative (Negative)
[2022-01-12] MEDS ORDERED: methylPREDNISolone 125 MG/2 ML VIAL IV STA (14:59)
[2022-01-12] MEDS ORDERED: diphenhydrAMINE 50 MG/ML VIAL IV STA (14:59)
[2022-01-12] MEDS ORDERED: OPTIRAY 320 125ml IV ONE (15:52)
--- NOTE | 2022-01-12 16:07 | CT Scan Report ---
CT angio chest PE protocol CT DOSE: 505.91 mGy.cm HISTORY: 86 years-old Female with ro PE. Acute shortness of breath. COVID Positive. TECHNIQUE: Multiple CTA images of the chest were obtained after the intravenous administration of 118 ml Optiray. Coronal and sagittal MIPS were obtained from the axial data set and were submitted for review. All measurements were obtained according to NASCET criteria. A dose lowering technique was u tilized adhering to the principles of ALARA. COMPARISON: Chest radiograph of same day, CTA chest 01/02/2022 FINDINGS: CTA: The heart is mildly enlarged. Extensive coronary artery and mitral annular calcifications. No pericar dial effusion. The left heart structures are not well opacified. Atherosclerosis of the thoracic aort a. Opacified venous structures of the right upper extremity and chest. Suboptimal opacification of th e pulmonary artery secondary to contrast bolus timing. Apparent filling defects are noted within nume rina segmental and subsegmental pulmonary arteries which is likely secondary to mixing artifact. CT CHEST: No thyroid nodule or pathologically enlarged lymph nodes within the chest. There is no pneumothorax o r pleural effusion. Bronchial wall thickening is noted with mild mucous plugging within the lung base s. Additionally, there is mild intralobular septal thickening. Bibasilar subsegmental groundglass den sities suggest atelectasis. No acute process of the imaged upper abdomen. Degenerative changes of the shoulders and spine. IMPRESSION: 1. Limited evaluation of the pulmonary arterial tree secondary to contrast bolus timing. No central p ulmonary emboli are identified. Apparent filling defects within the segmental and subsegmental pulmon dalila arterial branches is likely secondary to mixing artifact. 2. Cardiomegaly with interval development of mild intralobular septal thickening suggestive of develo ping interstitial pulmonary edema. 3. Unchanged bronchial wall thickening. 4. Mild bibasilar atelectasis. ACT 112: Negative or not required by law. The above report was generated using voice recognition software. It may contain grammatical, syntax o r spelling errors. Electronically signed by: Suleman Parker M.D. 01/12/2022 4:05 PM
[2022-01-12] MEDS ORDERED: FUROSEMIDE 40 MG/4 ML VIAL IV ONE (16:13)
[2022-01-12] MEDS ORDERED: Heparin IV Adult Wt-Based Standard WITH Bolus Protocol IV STA (16:24)
[2022-01-12] MEDS ORDERED: HEPARIN SOD (PORCINE) 1000 UNIT/ML IV ONE (16:39)
[2022-01-12] MEDS ORDERED: HEPARIN SODIUM/DEXTROSE 25,000 UNITS/500 ML BAG IV SCH (16:45)
--- NOTE | 2022-01-12 18:09 | History & Physical Report ---
Date of Service January 12, 2022 Assessment & Plan (1) Acute metabolic encephalopathy: Plan: From the ED note, patient appears to have been confused since Sunday, She is curently AAOX3, but is a poor historian. She knows today's date and is able to provide details to her previous hospital stay, however she is unable to fill in the gaps during her time home. Perhaps she has mild dementia. She recently had a bout of bronchitis and was treated as if this was a COVID 19 reinfection. Initial penelope: +11/08/21,tested positive on 01/02. Will try to limit medications that may make her more confused, I.E. benzos. And try to reorient her if she does get confused. Will order PT/OT (2) Pulmonary emboli: Plan: Probable, Patient has a possible pulmonary emboli, noted on CT scan, however this could be mixing artifact due to timing of contrast. Heparin drip has been started. WILL ORDER LOWER EXTREMITY DOPPLERS will CONSIDER V/Q scan: in AM. Defer to AM team. (3) Controlled type 2 diabetes mellitus with insulin therapy: Plan: consult glycemic control (4) Hypertension: Plan: resume home meds (5) Chronic kidney disease, stage 3: Plan: creatinine at baseline. will monitor (6) Supraventricular tachycardia: Plan: multiple bursts of SVT in past hospital stay. may consider cardio consult if these episodes return. continue beta cierra (7) Zoster ophthalmicus: Plan: resume prophylaxis continue valacyclovir (8) Complex sleep apnea syndrome: Plan: CPAP in the evening (9) Restless legs syndrome: Plan: will order home meds History of Present Illness Chief Complaint: SOB, weakness Primary Care Provider: Flaquito Espinoza MD This patient is an 86-year-old female with a history of DM2, HTN, isolated SVT, GERD/esophageal dysmotility, chronic lower back pain, CKD stage III, MITZY on CPAP , RLS, hyperlipidemia, recently discharged on 01/07 with bronchitis. Patient was treated for a possible COVID 19 reinfection despite testing positive within the 90 day period. Initial + test result: 11/08/21. Patient was borught in by her , but he is not available at bedside. Tried calling and he did not respond. Patient is a poor historian, is able to recall her previous hospital stay. She is able to state the date of her previous admission, but is unable to recall why her brought her in. She can not provide details during her time home. From what is discussed with ER provider, i t appears patient has been confused, getting progressively weaker at home, and also having SOB. This is what brought the patient back to the ER. CTA chest: showed filling defects and heparin drip was ordered. Admission was called. Allergies Allergy/AdvReac Type Severity Reaction Status Date / Time valdecoxib Allergy Severe DYSPNEA, Verified 01/12/22 14:15 HAS TOLERATED TORADOL hydrochlorothiazide Allergy Intermediate itching Verified 01/12/22 14:15 [From Dyazide] Iodinated Contrast Media Allergy Intermediate RASH Verified 01/12/22 14:15 triamterene [From Dyazide] Allergy Intermediate itching Verified 01/12/22 14:15 adhesive Allergy Mild CLOTH Verified 01/12/22 14:15 ADHESIVE/BANDAIDS-RASH metformin Allergy Mild Diarrhea Verified 01/12/22 14:15 diltiazem AdvReac bradycardia Verified 01/12/22 14:15 Home Medications Medication Instructions Recorded Confirmed Type cholecalciferol (vitamin D3) 25 1,000 units PO HS 03/14/19 01/12/22 History mcg (1,000 unit) capsule ascorbic acid (vitamin C) 1,000 mg 1 gm PO QAM tab 05/16/19 01/12/22 History tablet calcium carbonate 500 mg calcium 500 mg PO HS tab 05/16/19 01/12/22 History (1,250 mg) chewable tablet aspirin 81 mg tablet,delayed 81 mg PO Q2D #30 tab 03/29/21 01/12/22 Rx release (Aspirin Low Dose) ropinirole 12 mg tablet,extended 12 mg PO HS #90 tab 04/04/21 01/12/22 Rx release 24 hr [facility] 05/12/21 01/02/22 History Verio test strips) lancets 30 gauge ([facility] [place] 05/12/21 01/02/22 History Lancets) rosuvastatin 40 mg tablet 40 mg PO HS #90 tab 07/27/21 01/12/22 Rx nitroglycerin 0.4 mg sublingual 0.4 mg SL Q5M PRN #25 tab 10/11/21 01/12/22 Rx tablet diphenoxylate-atropine 2.5 1 tab PO TID PRN #90 tab 12/12/21 01/12/22 Rx mg-0.025 mg tablet insulin aspart U-100 100 unit/mL See Rx Instructions .ROUTE .COMPLEX 01/02/22 01/12/22 History (3 mL) subcutaneous pen (Novolog Flexpen U-100 Insulin aspart) insulin glargine 100 unit/mL (3 11 unit SQ BID 01/02/22 01/12/22 History mL) subcutaneous pen (Basaglar KwikPen U-100 Insulin) metoprolol tartrate 25 mg tablet 25 mg PO BID 30 Days #60 tab 01/07/22 01/12/22 Rx benzonatate 100 mg capsule 100 mg PO TID #20 cap 01/12/22 01/12/22 Rx dexamethasone 6 mg tablet 6 mg PO QAM 01/12/22 01/12/22 History esomeprazole magnesium 40 mg 40 mg PO QAM 01/12/22 01/12/22 History capsule,delayed release (Nexium) famotidine 40 mg tablet 40 mg PO HS 01/12/22 01/12/22 History fluoxetine 20 mg capsule 20 mg PO HS 01/12/22 01/12/22 History valacyclovir 1 gram tablet 1,000 mg PO BID 01/12/22 01/12/22 History Past Med/Surg History Medical History Anxiety Chronic kidney disease, stage 3 Follows with neprho- stable- baseline creat 1.3 since February 2010 Chronic low back pain Chronic SI joint pain Diabetes mellitus, type 2 Follows with endo DSAP (disseminated superficial actinic porokeratosis) Dyslipidemia Dysphagia Esophageal dysmotility GERD (gastroesophageal reflux disease) Hyperlipidemia Hypertension Restless leg syndrome Sensory hearing loss, bilateral Sleep apnea cpap Spinal stenosis Zoster ophthalmicus Surgical History History of arthroscopy of right knee History of bilateral cataract extraction History of bilateral tubal ligation History of bladder surgery bladder tuck x2 History of cardiac cath 1997 @ [facility] [place] no stent--d/t heart failure History of carpal tunnel release of both wrists History of colonoscopy History of dilatation and curettage History of elbow surgery LEFT/RT History of esophageal dilatation History of esophagogastroduodenoscopy (EGD) History of left breast biopsy benign History of lumbar spinal fusion History of lumpectomy of left breast benign History of open reduction and internal fixation (ORIF) procedure right leg--hardware in place History of right breast biopsy benign History of surgical procedure on mouth removed benign tissue from lower jaw History of toe surgery big toe History of tonsillectomy and adenoidectomy History of tooth extraction all teeth removed History of total hysterectomy with bilateral salpingo-oophorectomy (BSO) History of total left knee replacement (TKR) x2 History of total right knee replacement (TKR) x2 Hx of repair of left rotator cuff x2 Hx of repair of right rotator cuff S/P appendectomy S/P exploratory laparotomy Family History Mother Heart disease Myocardial infarction Family/Other Arthritis Father Asthma Sister Ovarian cancer Heart disease Family history of diabetes mellitus Sister Family history of diabetes mellitus Other No family history of adverse response to anesthesia Denies family history of Prostate cancer Kidney disease Breast cancer Colorectal cancer Social History Smoking Status: Never smoker Second Hand Exposure: Yes ( SMOKED IN THE PAST); Hx Alcohol Use: No Hx Substance Use: No Preferred Language: Eritrean Communication Ability: Effective Snack Steward Required: No Beliefs That Will Affect Care: None marital status: Current Living Situation: Spouse current occupational status: retired Feels Safe at Home: Yes Childhood Exposure to Second-Hand Smoke: Yes Dental Care, Regularly: No Physical Activity Frequency: Does not Exercise Seatbelt Use: always Sunscreen Use: Yes Assistive Devices: Cane, Denture - Lower, Glasses and Hearing Aid - Bilateral Review of Systems Review of Systems: All systems reviewed & are unremarkable except as noted in HPI & below Physical Exam Physical Exam: Constitutional: WD/WN, vitals as above Eyes: PERRL, conjunctivae normal, anicteric sclerae ENMT: external ear and nose normal, oropharynx normal Neck: trachea midline, no thyromegaly Respiratory: normal respiratory effort, lungs clear to auscultation Cardiovascular: RRR, no murmur, no edema Chest (Breasts): Chest: normal inspection of chest Gastrointestinal (Abdomen): normal bowel sounds, soft, nontender, no hepatosplenomegaly Musculoskeletal: Extremities: extremities normal to inspection; no cyanosis and no clubbing Skin: no rashes, warm and dry Neurologic: moves all extremities and awake; no focal motor deficits Psychiatric: A+Ox3, euthymic affect Lymphatic: no lymphedema Results & Data Results & Data ([facility]) Vital Signs (Past 12 Hours) Vital Signs Temp Pulse Pulse Resp BP BP Pulse Ox 01/12/22 16:00 94 H 18 146/86 H 96 01/12/22 13:00 96 H 18 145/77 H 96 01/12/22 11:37 95 01/12/22 11:04 36 C L 114 H 20 134/69 96 PG Care Time/CCT Total # of Minutes Spent Total Time Spent with Patient: Total time spent is greater than 50% in coordination of care (as documented) at patient's floor/unit and/or counseling patient: Coding Level of Care Code 86583 Initial Inpt Care Lvl 3 Diagnoses Acute metabolic encephalopathy G93.41 Pulmonary emboli I26.99 Controlled type 2 diabetes mellitus with insulin therapy E11.9; Z79.4 Hypertension I10 Chronic kidney disease, stage 3 N18.3 Supraventricular tachycardia I47.1 Zoster ophthalmicus B02.30 Complex sleep apnea syndrome G47.31 Restless legs syndrome G25.81
[2022-01-12] MEDS ORDERED: NITROGLYCERIN SL 0.4 MG/TAB TAB SL PRN (18:10)
[2022-01-12] MEDS ORDERED: DIPHENOXYLATE/ATROPINE 2.5/0.025MG TAB PO PRN (18:10)
[2022-01-12] MEDS ORDERED: BENZONATATE 100 MG CAPSULE PO PRN (18:10)
[2022-01-12] MEDS ORDERED: INSULIN ASPART 100 UNIT/ML SCH (18:15)
[2022-01-12] MEDS ORDERED: INSULIN SCH (18:15)
[2022-01-12] MEDS ORDERED: ONDANSETRON INJ 2 MG/ML 2 ML VIAL IV PRN (19:40)
[2022-01-12] MEDS ORDERED: ACETAMINOPHEN 325 MG TAB PO PRN (19:40)
[2022-01-12] MEDS ORDERED: FAMOTIDINE 40 MG TABLET PO SCH (21:00)
[2022-01-12 21:43] LABS: D Dimer 1000 ug/L FEU (0-500)
[2022-01-12] MEDS ORDERED: PHARMACY GLYCEMIC MGMT CONSULT PRN (21:51)
[2022-01-12] MEDS ORDERED: INSULIN GLARGINE SOLOSTAR 100 UNITS/ML 3 ML PEN SC STA (22:04)
[2022-01-12] MEDS ORDERED: INSULIN ASPART PER UNIT SC STA (22:04)
[2022-01-12] MEDS ORDERED: INSULIN HUMAN REGULAR PER UNIT 7 UNITS in SYRINGE 7 ML IV STA (22:09)
[2022-01-12] MEDS ORDERED: GLUCOSE 40% GEL 15 GM TUBE PO PRN (23:45)
[2022-01-12] MEDS ORDERED: DEXTROSE 50% 50 ML SYRINGE IV PRN (23:45)
[2022-01-12] MEDS ORDERED: GLUCOSE 10 TABS/TUBE PO PRN (23:45)
[2022-01-12] MEDS ORDERED: CARBOHYDRATES FOR HYPOGLYCEMIA PO PRN (23:45)
[2022-01-12] MEDS ORDERED: GLUCAGON FOR INJ 1 MG VIAL IM PRN (23:45)
[2022-01-13] MEDS ORDERED: INSULIN ASPART PER UNIT SC STA (00:35)
[2022-01-13] MEDS: CHOLECALCIFEROL 1,000 UNITS 25 MCG TAB PO SCH (00:39)
[2022-01-13] MEDS: FLUoxetine HCL 20 MG CAP PO SCH (00:39)
[2022-01-13] MEDS: valACYclovir HCL 500 MG TABLET PO SCH ×2 (00:39→09:29)
[2022-01-13] MEDS: METOPROLOL TARTRATE 25 MG TAB PO SCH ×3 (00:39→23:27)
[2022-01-13] MEDS: ROSUVASTATIN CALCIUM 20 MG TAB PO SCH (00:39)
[2022-01-13 01:12] LABS: Partial Thromboplastin Ratio > 5.1
[2022-01-13 01:18] LABS: Partial Thromboplastin Time > 139.0 Seconds (21.0-31.0)
[2022-01-13] MEDS: INSULIN ASPART PER UNIT SC SCH ×6 (01:44→22:54)
--- NOTE | 2022-01-13 07:15 | Ultrasound Report ---
BILATERAL LOWER EXTREMITY VENOUS DOPPLER HISTORY: Shortness of breath. possible pulmonary emboli COMPARISON STUDY: None. FINDINGS: There is normal compressibility, flow, and augmentation within the bilateral lower extremit y deep venous systems. IMPRESSION: No DVT within the right or left lower extremity. ACT 112: Negative or not required by law. Electronically signed by: Paul High M.D. 01/13/2022 7:13 AM
[2022-01-13 08:19] LABS: Hemoglobin 13.4 g/dL (12.0-16.0); Mean Corpuscular Hemoglobin 30.9 pg (25-34); Mean Corpuscular Hgb Conc 33.5 g/dL (32-36); Mean Corpuscular Volume 92.4 fL (80-100); Mean Platelet Volume 11.7 fL (7.4-10.4); Platelet Count 228 K/uL (130-400); RDW Coefficient of Variation 15.2 % (11.5-14.5); RDW Standard Deviation 51.5 fL (36.4-46.3); Red Blood Count 4.33 M/uL (4.2-5.4); White Blood Count 32.98 K/uL (4.8-10.8)
[2022-01-13 08:33] LABS: Basophils # (auto) 0.02 K/uL (0-0.2); Basophils % (auto) 0.1 %; Echinocytes 1+; Eosinophils # (auto) 0.01 K/uL (0-0.5); Immature Granulocytes # (auto) 0.38 K/uL (0.00-0.02); Immature Granulocytes % (auto) 1.2 %; Lymphocytes % (auto) 7.6 %; Monocytes # (auto) 1.23 K/uL (0.11-0.59); Monocytes % (auto) 3.7 %; Neutrophils # (auto) 28.84 K/uL (1.4-6.5); Neutrophils % (auto) 87.4 %; Poikilocytosis Present
[2022-01-13 08:52] LABS: Partial Thromboplastin Ratio > 5.1
[2022-01-13] MEDS ORDERED: ASPIRIN 81 MG ECTAB PO SCH (09:00)
[2022-01-13 09:01] LABS: Partial Thromboplastin Time > 139.0 Seconds (21.0-31.0)
[2022-01-13 09:11] LABS: Anion Gap 9 (3-11); BUN Creatinine Ratio 39.7 (10-20); Blood Urea Nitrogen 54 mg/dl (6-23); C Reactive Protein < 0.50 mg/dl (0-0.5); Calcium 8.5 mg/dl (8.5-10.1); Carbon Dioxide 25 mmol/L (21-32); Chloride 100 mmol/L (98-107); Creatinine Clr Calc Pharmacy 26.9 ml/min; Est GFR (African American) 40.7 ml/min; Est GFR (Non-African American) 35.1 ml/min; Glucose 210 mg/dl (70-99(Fasting)); Sodium 134 mmol/L (136-145)
[2022-01-13] MEDS: ASCORBIC ACID 500 MG TAB PO SCH (09:29)
[2022-01-13] MEDS: PANTOprazole 40 MG TAB PO SCH (09:29)
[2022-01-13] MEDS: INSULIN GLARGINE SOLOSTAR 100 UNITS/ML 3 ML PEN SQ SCH ×2 (09:42→23:57)
[2022-01-13 10:42] LABS: Partial Thromboplastin Ratio > 5.1
[2022-01-13 10:45] LABS: Partial Thromboplastin Time > 139.0 Seconds (21.0-31.0)
[2022-01-13 12:12] LABS: Partial Thromboplastin Ratio 2.6
[2022-01-13 12:25] LABS: Hematocrit (blood only) 37.4 % (37-47); Hemoglobin 12.6 g/dL (12.0-16.0); Mean Corpuscular Hgb Conc 33.7 g/dL (32-36); Mean Corpuscular Volume 92.1 fL (80-100); Mean Platelet Volume 10.9 fL (7.4-10.4); Platelet Count 208 K/uL (130-400); RDW Coefficient of Variation 15.2 % (11.5-14.5); RDW Standard Deviation 51.1 fL (36.4-46.3); Red Blood Count 4.06 M/uL (4.2-5.4); White Blood Count 37.87 K/uL (4.8-10.8)
[2022-01-13 12:31] LABS: Partial Thromboplastin Time 72.5 Seconds (21.0-31.0)
[2022-01-13 12:33] LABS: D Dimer 740 ug/L FEU (0-500)
[2022-01-13 12:56] LABS: Basophils # (auto) 0.03 K/uL (0-0.2); Basophils % (auto) 0.1 %; Immature Granulocytes # (auto) 0.39 K/uL (0.00-0.02); Lymphocytes # (auto) 2.88 K/uL (1.2-3.4); Lymphocytes % (auto) 7.6 %; Monocytes # (auto) 1.93 K/uL (0.11-0.59); Monocytes % (auto) 5.1 %; Neutrophils # (auto) 32.64 K/uL (1.4-6.5); Neutrophils % (auto) 86.2 %
[2022-01-13] MEDS ORDERED: ENOXAPARIN 80 MG/0.8 ML SYR SQ SCH (14:30)
--- NOTE | 2022-01-13 14:33 | Pharmacy Report ---
Pharmacy Glycemic Short Note 2 - Date of Service January 13, 2022 - Glycemic Short BSG Results (Last 24 hours): 01/12/22 01/12/22 01/13/22 22:06 23:54 01:30 Glucose POC Glucose 406 H* 328 H* 221 H 01/13/22 01/13/22 01/13/22 03:34 03:36 04:05 Glucose POC Glucose 51 L* 60 L* 107 H 01/13/22 01/13/22 01/13/22 04:28 05:01 06:22 Glucose POC Glucose 140 H 138 H 74 01/13/22 01/13/22 01/13/22 06:42 07:45 07:53 Glucose 210 H POC Glucose 106 H 246 H 01/13/22 11:56 Glucose POC Glucose 275 H OUTPATIENT ANTIDIABETIC REGIMEN: * Lantus 11 units SQ BID * Novolog SQ TID with meals * 3 units with breakfast * 5 units with lunch * 8 units with dinner * HbA1c: 8.3% (01/03/22) ASSESSMENT: * Ms Douglas is an 86yo diabetic F admitted with PE. * She is known to pharmacy glycemic service from recent admission. During that admission, she was receiving IV steroids for COVID-19. No steroids are currently ordered. * Patient was significantly hyperglycemic on admission last night. Following several doses of correctional insulin, she did have an episode of hypoglycemia overnight. This has since resolved. * Pre-lunch BSG elevated, so Novolog parameters adjusted to provide additional carb coverage. * Pharmacy will continue to follow and adjust regimen as indicated. PLAN FOR INPATIENT GLYCEMIC CONTROL: * Hold outpatient oral diabetes medications * Basal insulin * Lantus 11 units SQ BID * Bolus insulin * NovoLog per scale ACHS or Q6hrs while NPO * Goal Range: Low 110 mg/dL - High 140 mg/dL * Correction Factor: 20 mg/dL/unit * Nutritional / Prandial insulin per carb ratio of 1 unit per 6 grams CHO consumed
--- NOTE | 2022-01-13 17:43 | Hospitalist Progress Note ---
Date of Service January 13, 2022 Assessment & Plan (1) Acute metabolic encephalopathy: Plan: Mental status improved to baseline Proceed with MRI of the brain Neuro focal neurologic deficit Etiology unclear Possibly medication side effect possibly secondary to benzo (2) Chest pain: Plan: Responded to sublingual nitro, elevatedHowever as per review of old chart patient had persistent elevated troponin, order for echocardiogram, continue nitro, currently patient full dose Lovenox, and aspirin, cardiology consult, per review of old labs patient at least have elevated troponin since 01/02 (3) Leukocytosis: Plan: White cell count trending up today is 37,000, possibly leukemoid reaction, however patient had persistent leukocytosis since 2018 Mostly neutrophilic dominant have some immature granulocytes, discussed with erp implementation consultant oncology, recommend peripheral smear to be seen by pathologist, will check for ESR (4) Pulmonary emboli: Plan: Doppler lower extremity negative, given patient age and comorbidities I will discontinue anticoagulation (5) Controlled type 2 diabetes mellitus with insulin therapy: Plan: consult glycemic control (6) Hypertension: Plan: resume home meds (7) Chronic kidney disease, stage 3: Plan: creatinine at baseline. will monitor (8) Supraventricular tachycardia: Plan: multiple bursts of SVT in past hospital stay. may consider cardio consult if these episodes return. continue beta cierra (9) Zoster ophthalmicus: Plan: resume prophylaxis continue valacyclovir (10) Complex sleep apnea syndrome: Plan: CPAP in the evening (11) Restless legs syndrome: Plan: will order home meds Admission and Anticipated Discharge Date Admission Date: January 12, 2022 Results & Data Results & Data ([facility]) Vital Signs (Past 12 Hours) Vital Signs Temp Pulse Pulse Resp BP BP Pulse Ox 01/13/22 17:08 52 L 01/13/22 16:06 53 L 12 89/57 L 98 01/13/22 16:01 50 L 14 128/76 97 01/13/22 15:52 36.4 C L 50 L 18 101/64 100 01/13/22 15:16 52 L 01/13/22 13:35 01/13/22 12:00 36.1 C L 52 L 16 120/62 97 01/13/22 09:46 61 01/13/22 07:12 36.5 C 56 L 18 166/74 H 97 Pulse Ox Pulse Ox 01/13/22 17:08 01/13/22 16:06 01/13/22 16:01 01/13/22 15:52 01/13/22 15:16 01/13/22 13:35 97 87 L 01/13/22 12:00 01/13/22 09:46 01/13/22 07:12 PG Care Time/CCT Total # of Minutes Spent Total Time Spent with Patient: Total time spent is greater than 50% in coordination of care (as documented) at patient's floor/unit and/or counseling patient: Coding Level of Care Code 84528 Subseq Hosp Care Lvl 3 Diagnoses Acute metabolic encephalopathy G93.41 Pulmonary emboli I26.99 Controlled type 2 diabetes mellitus with insulin therapy E11.9; Z79.4 Hypertension I10 Chronic kidney disease, stage 3 N18.3 Supraventricular tachycardia I47.1 Zoster ophthalmicus B02.30 Complex sleep apnea syndrome G47.31 Restless legs syndrome G25.81 Leukocytosis D72.829 Chest pain R07.9
[2022-01-13] MEDS ORDERED: ALUMINUM/MAGNESIUM SUSP 30 ML UDC PO PRN (17:50)
[2022-01-13] MEDS ORDERED: NITROGLYCERIN 0.4 MG/HR PATCH TD SCH ×2 (18:45→19:00)
[2022-01-13] MEDS ORDERED: MIDAZOLAM HCL 1 MG/ML 2ML VIAL ONE (19:50)
[2022-01-13] MEDS ORDERED: fentaNYL citrate 100 MCG/2 ML VIAL ONE (19:50)
[2022-01-13] MEDS ORDERED: HEPARIN (PORCINE) 1000 UNIT/ML 10 ML (CATH LAB USE ONLY) ONE (19:50)
[2022-01-13] MEDS ORDERED: niCARdipine HCL INJ 2.5 MG/ML 10 ML AMP ONE (19:50)
[2022-01-13] MEDS ORDERED: NITROGLYCERIN/D5W 100MCG/ML 20ML SYR ONE (19:51)
--- NOTE | 2022-01-13 20:04 | Cardiology Consultation ---
Date of Consultation January 13, 2022 Assessment & Plan (1) Acute coronary syndrome: (2) Atrial tachycardia: (3) SVT (supraventricular tachycardia): (4) HTN (hypertension): (5) Dyslipidemia: ASSESSMENT/PLAN: 1. Acute coronary syndrome: Today's presentation highly concerning for acute coronary syndrome given dynamic ST/T-wave changes with chest discomfort, rising high sensitivity troponin, and response of her symptoms to nitroglycerin. Densely calcified coronary arteries on 01/02/2022 CT scan. She is anticoagulated with Lovenox as of this afternoon after previously being on heparin per nursing staff. She has received aspirin. Continue beta-cierra if tolerated. She is well beta blocked. High-intensity statin therapy. Recommended cardiac catheterization. Risks and benefits were discussed with her in detail and she was made aware that CT surgery is not available at this [facility]. Given recurrent unstable angina, will proceed with cardiac catheterization this evening. Discussed with Dr. Ibarra, chief technician. Check echo tomorrow. 2. Paroxysmal atrial tachycardia/flutter: Presenting ECG may represent atrial tachycardia and has been reviewed by electrophysiology for the official interpretation. Rate-controlling medications will be limited by sinus b radycardia. There has been discussion in the past about potential pacemaker placement for tachy-benson syndrome. No urgent indication and will first proceed with management of acute coronary syndrome. 3. Hypertension: Currently normotensive. No changes at this time. 4. Dyslipidemia: High-intensity statin therapy. 5. Metabolic encephalopathy: Apparently resolved. As per primary service. 6. CKD: Monitor renal function, especially after contrast load. 7. Leukocytosis: Has chronic leukocytosis which is much more prominent today. Hematology has been consulted by hospitalist service. Dexamethasone recently started. 8. Disposition: Cardiology will continue to follow. Cardiac catheterization this evening. Her was contacted via telephone to inform him of this evening's events and plan for cardiac catheterization. He was in agreement. Patient care communicated with primary hospitalist and nursing staff. Highly complex medical issues. History of Present Illness Reason for Consultation: Chest pain and elevated troponin Requesting Physician: Meng Price MD Attending Physician: Meng Price MD History of Present Illness Mrs. Douglas is a very pleasant 86-year-old female with a history significant for hypertension, CKD, type 2 diabetes, dyslipidemia, esophageal dysmotility, GERD, sleep apnea, and SVT. Her primary wire twisting machine operator is Dr. Adams. I was contacted by telemetry trailer rental clerk for a stat Cardiology consult given chest pain. Consult was discussed with Dr. Price (hospitalist and requesting physician) via telephone. She was admitted on 01/12/2022 with what was felt to be acute metabolic encephalopathy, possibly due to medication side effect from benzodiazepine. On presentation she underwent chest CTA on 01/12/2022 which was reported as limited evaluation due to contrast bolus timing. There were apparent filling defects which were felt to be due to mixing artifact by Radiology. There was mild interlobular septal thickening concerning for interstitial pulmonary edema per Radiology. Her mental status has returned to baseline per provider and nursing staff. Just before 4:00 p.m. this afternoon, she complained of central chest discomfort that radiated to her back. She became diaphoretic and according to nursing staff, ill appearing. She does not recall if she was short of breath and did not appear tachypneic. An ECG was done at 3:54 p.m. which demonstrated sinus bradycardia with premature supraventricular complex at 49 beats per minute. There was LVH. ST depression and T-wave inversion noted in the lateral leads and ST elevation in the inferior leads and minor ST elevation in the precordial leads. Compared to presenting ECG on 01/12/2022, sinus rhythm had replaced atrial tachycardia vs flutter and the lateral ST/T-wave abnormality is much more prominent, ST elevation is new. Nitroglycerin was given and her chest pain subsided. She then had another episode this evening, which again subsided with nitroglycerin. A repeat ECG was done at 6:56 p.m. while she was chest pain- free, noting sinus bradycardia with significant improvement in the lateral ST/T- wave abnormalities. ST-elevation was no longer present. High sensitivity troponin was in the 50s to 60s on 01/02/2022 and on presentation here 41.7 but increased to 74.1 this afternoon. When I presented to the bedside, her pain had just subsided. She states that she had been experiencing chest discomfort pre-hospital intermittently for the past month or so but could not give much details. She denies shortness of breath, orthopnea, syncope, palpitations, edema, melena, hematochezia, or hematuria. She has had some right lower abdominal discomfort. With her most recent hospital stay in December of 2021, she was discharged on with a diagnosis of sepsis, with COVID-19 infection and UTI with possible superimposed bronchitis. She had self terminating SVT and was placed on metoprolol. She was discharged on dexamethasone. She was treated with remdesivir for 3 days. Review of systems: As above. Review of systems otherwise negative/unremarkable. Family history: Positive for CAD. Social history: She denies tobacco, alcohol use. She lives at home with her . She has 3 sons. Nursing staff was at the bedside. Allergies Allergy/AdvReac Type Severity Reaction Status Date / Time valdecoxib Allergy Severe DYSPNEA, Verified 01/12/22 14:15 HAS TOLERATED TORADOL hydrochlorothiazide Allergy Intermediate itching Verified 01/12/22 14:15 [From Dyazide] Iodinated Contrast Media Allergy Intermediate RASH Verified 01/12/22 14:15 triamterene [From Dyazide] Allergy Intermediate itching Verified 01/12/22 14:15 adhesive Allergy Mild CLOTH Verified 01/12/22 14:15 ADHESIVE/BANDAIDS-RASH metformin Allergy Mild Diarrhea Verified 01/12/22 14:15 diltiazem AdvReac bradycardia Verified 01/12/22 14:15 Home Medications Medication Instructions Recorded Confirmed Type cholecalciferol (vitamin D3) 25 1,000 units PO HS 03/14/19 01/12/22 History mcg (1,000 unit) capsule ascorbic acid (vitamin C) 1,000 mg 1 gm PO QAM tab 05/16/19 01/12/22 History tablet calcium carbonate 500 mg calcium 500 mg PO HS tab 05/16/19 01/12/22 History (1,250 mg) chewable tablet aspirin 81 mg tablet,delayed 81 mg PO Q2D #30 tab 03/29/21 01/12/22 Rx release (Aspirin Low Dose) ropinirole 12 mg tablet,extended 12 mg PO HS #90 tab 04/04/21 01/12/22 Rx release 24 hr [facility] 01/02/22 History Verio test strips) lancets 30 gauge [facility] 05/12/21 01/02/22 History Lancets) rosuvastatin 40 mg tablet 40 mg PO HS #90 tab 07/27/21 01/12/22 Rx nitroglycerin 0.4 mg sublingual 0.4 mg SL Q5M PRN #25 tab 10/11/21 01/12/22 Rx tablet diphenoxylate-atropine 2.5 1 tab PO TID PRN #90 tab 12/12/21 01/12/22 Rx mg-0.025 mg tablet insulin aspart U-100 100 unit/mL See Rx Instructions .ROUTE .COMPLEX 01/02/22 01/12/22 History (3 mL) subcutaneous pen (Novolog Flexpen U-100 Insulin aspart) insulin glargine 100 unit/mL (3 11 unit SQ BID 01/02/22 01/12/22 History mL) subcutaneous pen (Basaglar KwikPen U-100 Insulin) metoprolol tartrate 25 mg tablet 25 mg PO BID 30 Days #60 tab 01/07/22 01/12/22 Rx benzonatate 100 mg capsule 100 mg PO TID #20 cap 01/12/22 01/12/22 Rx dexamethasone 6 mg tablet 6 mg PO QAM 01/12/22 01/12/22 History esomeprazole magnesium 40 mg 40 mg PO QAM 01/12/22 01/12/22 History capsule,delayed release (Nexium) famotidine 40 mg tablet 40 mg PO HS 01/12/22 01/12/22 History fluoxetine 20 mg capsule 20 mg PO HS 01/12/22 01/12/22 History valacyclovir 1 gram tablet 1,000 mg PO BID 01/12/22 01/12/22 History Patient History Medical History Anxiety Chronic kidney disease, stage 3 Follows with neprho- stable- baseline creat 1.3 since February 2010 Chronic low back pain Chronic SI joint pain Diabetes mellitus, type 2 Follows with endo DSAP (disseminated superficial actinic porokeratosis) Dyslipidemia Dysphagia Esophageal dysmotility GERD (gastroesophageal reflux disease) Hyperlipidemia Hypertension Restless leg syndrome Sensory hearing loss, bilateral Sleep apnea cpap Spinal stenosis Zoster ophthalmicus Surgical History History of arthroscopy of right knee History of bilateral cataract extraction History of bilateral tubal ligation History of bladder surgery bladder tuck x2 History of cardiac cath 1997 @ [facility] [place] no stent--d/t heart failure History of carpal tunnel release of both wrists History of colonoscopy History of dilatation and curettage History of elbow surgery LEFT/RT History of esophageal dilatation History of esophagogastroduodenoscopy (EGD) History of left breast biopsy benign History of lumbar spinal fusion History of lumpectomy of left breast benign History of open reduction and internal fixation (ORIF) procedure right leg--hardware in place History of right breast biopsy benign History of surgical procedure on mouth removed benign tissue from lower jaw History of toe surgery big toe History of tonsillectomy and adenoidectomy History of tooth extraction all teeth removed History of total hysterectomy with bilateral salpingo-oophorectomy (BSO) History of total left knee replacement (TKR) x2 History of total right knee replacement (TKR) x2 Hx of repair of left rotator cuff x2 Hx of repair of right rotator cuff S/P appendectomy S/P exploratory laparotomy Family History Mother Heart disease Myocardial infarction Family/Other Arthritis Father Asthma Sister Ovarian cancer Heart disease Family history of diabetes mellitus Sister Family history of diabetes mellitus Other No family history of adverse response to anesthesia Denies family history of Prostate cancer Kidney disease Breast cancer Colorectal cancer Social History Smoking Status: Never smoker Second Hand Exposure: Yes ( SMOKED IN THE PAST); Hx Alcohol Use: No Hx Substance Use: No Preferred Language: Vietnamese Communication Ability: Effective Fruit Ii Farmworker Required: No Beliefs That Will Affect Care: None marital status: Current Living Situation: Spouse current occupational status: retired Feels Safe at Home: Yes Childhood Exposure to Second-Hand Smoke: Yes Dental Care, Regularly: No Physical Activity Frequency: Does not Exercise Seatbelt Use: always Sunscreen Use: Yes Assistive Devices: Cane, CPAP and Walker Physical Exam Physical Exam: Gen.: No acute distress. Alert and oriented x 3. HEENT: Anicteric sclera. Neck: No JVD. Cardiac: PMI was nonpalpable. No ventricular heave. Regular. Normal S1-S2. 1/6 systolic murmur. No rubs or gallops. Pulmonary: Clear to auscultation bilaterally without wheezes, rales, or rhonchi. Abdomen: Soft, nondistended, with normoactive bowel sounds. No bruits noted. Small ecchymotic areas on her abdomen with no identifiable hematoma. Very mild tenderness in her right lower quadrant, at the site of ecchymosis. Extremities: 2+ radial pulses bilaterally. 1+ posterior tibialis pulses bilaterally. No edema or cyanosis. Psychiatric: Affect appears appropriate. Chest: Nontender to palpation. Results & Data ([facility]) Vital Signs (Past 12 Hours) Vital Signs Temp Pulse Pulse Resp BP BP Pulse Ox 01/13/22 18:17 54 L 16 124/73 98 01/13/22 17:08 52 L 01/13/22 16:06 53 L 12 89/57 L 98 01/13/22 16:01 50 L 14 128/76 97 01/13/22 15:52 36.4 C L 50 L 18 101/64 100 01/13/22 15:16 52 L 01/13/22 13:35 01/13/22 12:00 36.1 C L 52 L 16 120/62 97 01/13/22 09:46 61 Pulse Ox Pulse Ox 01/13/22 18:17 01/13/22 17:08 01/13/22 16:06 01/13/22 16:01 01/13/22 15:52 01/13/22 15:16 01/13/22 13:35 97 87 L 01/13/22 12:00 01/13/22 09:46 Laboratory Results Laboratory Results - last 24 hr 01/12/22 01/12/22 01/12/22 20:50 21:58 22:06 WBC RBC Hgb Hct MCV MCH MCHC RDW Std Deviation RDW Coeff of Alli Plt Count MPV Immature Gran % (Auto) Neut % (Auto) Lymph % (Auto) [place] % (Auto) Eos % (Auto) Baso % (Auto) Neut # (Auto) Lymph # (Auto) [place] # (Auto) Eos # (Auto) Baso # (Auto) Immature Gran # (Auto) Poikilocytosis Echinocytes Peripher Smr Path Cons APTT PTT Ratio D-Dimer 1000 H* Sodium Potassium Chloride Carbon Dioxide Anion Gap BUN Creatinine Est Cr Clr Drug Dosing Est GFR ( Amer) Est GFR (Non-Af Amer) BUN/Creatinine Ratio Glucose POC Glucose 406 H* Calcium Troponin I High Sens C-Reactive Protein Procalcitonin SARS-CoV-2, RNA, NAAT POSITIVE A* 01/12/22 01/13/22 01/13/22 23:54 00:36 01:30 WBC RBC Hgb Hct MCV MCH MCHC RDW Std Deviation RDW Coeff of Alli Plt Count MPV Immature Gran % (Auto) Neut % (Auto) Lymph % (Auto) [place] % (Auto) Eos % (Auto) Baso % (Auto) Neut # (Auto) Lymph # (Auto) [place] # (Auto) Eos # (Auto) Baso # (Auto) Immature Gran # (Auto) Poikilocytosis Echinocytes Peripher Smr Path Cons APTT > 139.0 H* PTT Ratio > 5.1 D-Dimer Sodium Potassium Chloride Carbon Dioxide Anion Gap BUN Creatinine Est Cr Clr Drug Dosing Est GFR ( Amer) Est GFR (Non-Af Amer) BUN/Creatinine Ratio Glucose POC Glucose 328 H* 221 H Calcium Troponin I High Sens C-Reactive Protein Procalcitonin SARS-CoV-2, RNA, NAAT 01/13/22 01/13/22 01/13/22 03:34 03:36 04:05 WBC RBC Hgb Hct MCV MCH MCHC RDW Std Deviation RDW Coeff of Alli Plt Count MPV Immature Gran % (Auto) Neut % (Auto) Lymph % (Auto) [place] % (Auto) Eos % (Auto) Baso % (Auto) Neut # (Auto) Lymph # (Auto) [place] # (Auto) Eos # (Auto) Baso # (Auto) Immature Gran # (Auto) Poikilocytosis Echinocytes Peripher Smr Path Cons APTT PTT Ratio D-Dimer Sodium Potassium Chloride Carbon Dioxide Anion Gap BUN Creatinine Est Cr Clr Drug Dosing Est GFR ( Amer) Est GFR (Non-Af Amer) BUN/Creatinine Ratio Glucose POC Glucose 51 L* 60 L* 107 H Calcium Troponin I High Sens C-Reactive Protein Procalcitonin SARS-CoV-2, RNA, NAAT 01/13/22 01/13/22 01/13/22 04:28 05:01 06:22 WBC RBC Hgb Hct MCV MCH MCHC RDW Std Deviation RDW Coeff of Alli Plt Count MPV Immature Gran % (Auto) Neut % (Auto) Lymph % (Auto) [place] % (Auto) Eos % (Auto) Baso % (Auto) Neut # (Auto) Lymph # (Auto) [place] # (Auto) Eos # (Auto) Baso # (Auto) Immature Gran # (Auto) Poikilocytosis Echinocytes Peripher Smr Path Cons APTT PTT Ratio D-Dimer Sodium Potassium Chloride Carbon Dioxide Anion Gap BUN Creatinine Est Cr Clr Drug Dosing Est GFR ( Amer) Est GFR (Non-Af Amer) BUN/Creatinine Ratio Glucose POC Glucose 140 H 138 H 74 Calcium Troponin I High Sens C-Reactive Protein Procalcitonin SARS-CoV-2, RNA, NAAT 01/13/22 01/13/22 01/13/22 06:42 07:45 07:45 WBC 32.98 H* D RBC 4.33 Hgb 13.4 Hct 40.0 MCV 92.4 MCH 30.9 MCHC 33.5 RDW Std Deviation 51.5 H RDW Coeff of Alli 15.2 H Plt Count 228 MPV 11.7 H Immature Gran % (Auto) 1.2 Neut % (Auto) 87.4 Lymph % (Auto) 7.6 [place] % (Auto) 3.7 Eos % (Auto) 0.0 Baso % (Auto) 0.1 Neut # (Auto) 28.84 H Lymph # (Auto) 2.50 [place] # (Auto) 1.23 H Eos # (Auto) 0.01 Baso # (Auto) 0.02 Immature Gran # (Auto) 0.38 H Poikilocytosis Present Echinocytes 1+ Peripher Smr Path Cons APTT > 139.0 H* PTT Ratio > 5.1 D-Dimer Sodium Potassium Chloride Carbon Dioxide Anion Gap BUN Creatinine Est Cr Clr Drug Dosing Est GFR ( Amer) Est GFR (Non-Af Amer) BUN/Creatinine Ratio Glucose POC Glucose 106 H Calcium Troponin I High Sens C-Reactive Protein Procalcitonin SARS-CoV-2, RNA, NAAT 01/13/22 01/13/22 01/13/22 07:45 07:45 07:53 WBC RBC Hgb Hct MCV MCH MCHC RDW Std Deviation RDW Coeff of Alli Plt Count MPV Immature Gran % (Auto) Neut % (Auto) Lymph % (Auto) [place] % (Auto) Eos % (Auto) Baso % (Auto) Neut # (Auto) Lymph # (Auto) [place] # (Auto) Eos # (Auto) Baso # (Auto) Immature Gran # (Auto) Poikilocytosis Echinocytes Peripher Smr Path Cons APTT PTT Ratio D-Dimer Sodium 134 L Potassium TNP Chloride 100 Carbon Dioxide 25 Anion Gap 9 BUN 54 H Creatinine 1.36 H Est Cr Clr Drug Dosing 26.9 Est GFR ( Amer) 40.7 Est GFR (Non-Af Amer) 35.1 BUN/Creatinine Ratio 39.7 H Glucose 210 H POC Glucose 246 H Calcium 8.5 Troponin I High Sens C-Reactive Protein < 0.50 Procalcitonin < 0.05 SARS-CoV-2, RNA, NAAT 01/13/22 01/13/22 01/13/22 09:55 09:55 11:10 WBC RBC Hgb Hct MCV MCH MCHC RDW Std Deviation RDW Coeff of Alli Plt Count MPV Immature Gran % (Auto) Neut % (Auto) Lymph % (Auto) [place] % (Auto) Eos % (Auto) Baso % (Auto) Neut # (Auto) Lymph # (Auto) [place] # (Auto) Eos # (Auto) Baso # (Auto) Immature Gran # (Auto) Poikilocytosis Echinocytes Peripher Smr Path Cons APTT > 139.0 H* 72.5 H* PTT Ratio > 5.1 2.6 D-Dimer Sodium Potassium 4.5 Chloride Carbon Dioxide Anion Gap BUN Creatinine Est Cr Clr Drug Dosing Est GFR ( Amer) Est GFR (Non-Af Amer) BUN/Creatinine Ratio Glucose POC Glucose Calcium Troponin I High Sens C-Reactive Protein Procalcitonin SARS-CoV-2, RNA, NAAT 01/13/22 01/13/22 01/13/22 11:42 11:42 11:56 WBC 37.87 H* RBC 4.06 L Hgb 12.6 Hct 37.4 MCV 92.1 MCH 31.0 MCHC 33.7 RDW Std Deviation 51.1 H RDW Coeff of Alli 15.2 H Plt Count 208 MPV 10.9 H Immature Gran % (Auto) 1.0 Neut % (Auto) 86.2 Lymph % (Auto) 7.6 [place] % (Auto) 5.1 Eos % (Auto) 0.0 Baso % (Auto) 0.1 Neut # (Auto) 32.64 H Lymph # (Auto) 2.88 [place] # (Auto) 1.93 H Eos # (Auto) 0.00 Baso # (Auto) 0.03 Immature Gran # (Auto) 0.39 H Poikilocytosis Echinocytes Peripher Smr Path Cons Pending APTT PTT Ratio D-Dimer 740 H* Sodium Potassium Chloride Carbon Dioxide Anion Gap BUN Creatinine Est Cr Clr Drug Dosing Est GFR ( Amer) Est GFR (Non-Af Amer) BUN/Creatinine Ratio Glucose POC Glucose 275 H Calcium Troponin I High Sens C-Reactive Protein Procalcitonin SARS-CoV-2, RNA, NAAT 01/13/22 01/13/22 15:46 16:23 WBC RBC Hgb Hct MCV MCH MCHC RDW Std Deviation RDW Coeff of Alli Plt Count MPV Immature Gran % (Auto) Neut % (Auto) Lymph % (Auto) [place] % (Auto) Eos % (Auto) Baso % (Auto) Neut # (Auto) Lymph # (Auto) [place] # (Auto) Eos # (Auto) Baso # (Auto) Immature Gran # (Auto) Poikilocytosis Echinocytes Peripher Smr Path Cons APTT PTT Ratio D-Dimer Sodium Potassium Chloride Carbon Dioxide Anion Gap BUN Creatinine Est Cr Clr Drug Dosing Est GFR ( Amer) Est GFR (Non-Af Amer) BUN/Creatinine Ratio Glucose POC Glucose 326 H* Calcium Troponin I High Sens 74.1 H* D C-Reactive Protein Procalcitonin SARS-CoV-2, RNA, NAAT Diagnostic Findings ECGs reviewed as noted above. CT a chest report reviewed as noted above. Echo 05/24/2020: Normal LV systolic function. EF 60-65%. Normal wall motion. Mild LVH. Sclerotic aortic valve. Mild AI. Moderate TR. RVSP 40-50. Medications Administered Current Inpatient Medications Acetaminophen (Acetaminophen 325 Mg Tab) 650 mg PO Q4H PRN PRN Reason: pain/fever Stop: 02/11/22 19:39 Al Hydrox/Mg Hydrox/Simethicone (Aluminum/Magnesium Susp 30 Ml Udc) 30 ml PO Q6H PRN PRN Reason: Indigestion Stop: 02/12/22 17:49 Last Admin: 01/13/22 18:07 Dose: 30 ml Documented by: Ascorbic Acid (Ascorbic Acid 500 Mg Tab) 1,000 mg PO QAM [facility] Stop: 02/12/22 08:59 Last Admin: 01/13/22 09:29 Dose: 1,000 mg Documented by: Aspirin (Aspirin 81 Mg Ectab) 81 mg PO Q2D [facility] Stop: 02/12/22 08:59 Last Admin: 01/13/22 09:29 Dose: 81 mg Documented by: Benzonatate (Benzonatate 100 Mg Capsule) 100 mg PO TID PRN PRN Reason: cough Stop: 02/11/22 20:59 Calcium Carbonate (Calcium Carbonate 1250mg Tab) 1,250 mg PO [facility] Stop: 02/12/22 20:59 Dextrose (Dextrose 50% 50 Ml Syringe) 25 - 50 ml IV UD PRN; Protocol PRN Reason: Hypoglycemia Protocol Stop: 02/11/22 23:44 Diphenoxylate HCl/Atropine (Diphenoxylate/Atropine 2.5/0.025mg Tab) 1 tab PO TID PRN PRN Reason: diarrhea Stop: 02/11/22 18:09 Fluoxetine HCl (Fluoxetine Hcl 20 Mg Cap) 20 mg PO [facility] Stop: 02/11/22 20:59 Last Admin: 01/13/22 00:39 Dose: 20 mg Documented by: Glucagon (Glucagon For Inj 1 Mg Vial) 1 mg IM UD PRN; Protocol PRN Reason: Hypoglycemia Protocol Stop: 02/11/22 23:44 Glucose (Glucose 40% Gel 15 Gm Tube) 15 - 30 gm PO UD PRN; Protocol PRN Reason: Hypoglycemia Protocol Stop: 02/11/22 23:44 Last Admin: 01/13/22 03:45 Dose: 15 gm Documented by: Glucose (Glucose 10 Tabs/Tube) 4 - 8 tabs PO UD PRN; Protocol PRN Reason: Hypoglycemia Protocol Stop: 02/11/22 23:44 Insulin Aspart (Insulin Aspart Per Unit) 0 units SC ACHS [facility] Stop: 02/12/22 07:29 Last Admin: 01/13/22 18:32 Dose: 21 units Documented by: Insulin Glargine (Insulin Glargine Solostar 100 Units/Ml 3 Ml Pen) 11 units SQ BID [facility] Stop: 02/12/22 08:59 Last Admin: 01/13/22 09:42 Dose: 11 units Documented by: Metoprolol Tartrate (Metoprolol Tartrate 25 Mg Tab) 25 mg PO BID [facility] Stop: 02/11/22 20:59 Last Admin: 01/13/22 09:30 Dose: 25 mg Documented by: Miscellaneous (Requip~Order Awaiting Action) 1 ea N/A QS [facility] Stop: 02/12/22 00:00 Last Admin: 01/13/22 16:17 Dose: Not Given Documented by: Miscellaneous (Carbohydrates For Hypoglycemia ) 15 - 30 gm PO UD PRN PRN Reason: Hypoglycemia Treatment Stop: 02/11/22 23:44 Miscellaneous (Remove Nitro-Dur Patch) 1 ea N/A DAILY [facility] Stop: 02/13/22 08:59 Miscellaneous Information (Pharmacy Glycemic Mgmt Consult) 1 ea N/A UD PRN PRN Reason: Consult Stop: 02/11/22 21:50 Nitroglycerin (Nitroglycerin Sl 0.4 Mg/Tab Tab) 0.4 mg SL Q5M PRN PRN Reason: chest pain Stop: 02/11/22 18:09 Last Admin: 01/13/22 16:00 Dose: 0.4 mg Documented by: Nitroglycerin (Nitroglycerin 0.4 Mg/Hr Patch) 1 patch TD QPM [facility] Stop: 02/12/22 18:59 Ondansetron HCl (Ondansetron Inj 2 Mg/Ml 2 Ml Vial) 4 mg IV Q6H PRN PRN Reason: Nausea Stop: 02/11/22 19:39 Pantoprazole Sodium (Pantoprazole 40 Mg Tab) 40 mg PO QAM [facility] Stop: 02/12/22 08:59 Last Admin: 01/13/22 09:29 Dose: 40 mg Documented by: Rosuvastatin Calcium (Rosuvastatin Calcium 20 Mg Tab) 40 mg PO HS [facility] Stop: 02/11/22 20:59 Last Admin: 01/13/22 00:39 Dose: 40 mg Documented by: Valacyclovir HCl (Valacyclovir Hcl 500 Mg Tablet) 1,000 mg PO BID [facility] Stop: 02/11/22 20:59 Last Admin: 01/13/22 09:29 Dose: 1,000 mg Documented by: Vitamin D (Cholecalciferol 1,000 Units 25 Mcg Tab) 1,000 units PO HS [facility] Stop: 02/11/22 20:59 Last Admin: 01/13/22 00:39 Dose: 1,000 units Documented by: PG Care Time/CCT Total # of Minutes Spent Total Time Spent with Patient: Total time spent is greater than 50% in coordination of care (as documented) at patient's floor/unit and/or counseling patient: Coding Level of Care Code 44631 Initial In Care Lvl 3 Diagnoses Acute coronary syndrome I24.9 Atrial tachycardia I47.1 SVT (supraventricular tachycardia) I47.1 HTN (hypertension) I10 Dyslipidemia E78.5
[2022-01-13] MEDS ORDERED: diphenhydrAMINE 50 MG/ML VIAL ONE (20:07)
[2022-01-13] MEDS ORDERED: methylPREDNISolone 125 MG/2 ML VIAL ONE (20:07)
[2022-01-13] MEDS ORDERED: FAMOTIDINE 20MG/5ML IV PUSH IV ONE (20:08)
[2022-01-13] MEDS ORDERED: CALCIUM CARBONATE 1250MG TAB PO SCH (21:00)
[2022-01-13] MEDS ORDERED: CLOPIDOGREL BISULFATE 300 MG TAB ONE (21:27)
--- NOTE | 2022-01-13 21:38 | Cardiac Catheterization ---
[facility] Data: Field Human Resources Manager Cardiac Status Clinical evaluation leading to the procedure CAD Presenation: Non STEMI Anginal Classification: CCS IV Diagnostic Physicians Name: Guero Ibarra MD Closure Device Recommendations: PCI without planned CABG Cardiac Cath Procedure Full Procedure Date January 13, 2022 Pre-Procedure Diagnosis Pre-Procedure Diagnosis: Non STEMI AUC Score AUC Score: 8 Post-Procedure Diagnosis Post-Procedure Diagnosis: Severe CAD and Successful PCI Procedure(s) Performed Procedure(s) Performed: Coronary Angiography, Drug Eluting Stent and IVUS Freelance Photographer Guero Ibarra MD Telegraph Printer Mechanic(s) Tiffanie Estimated Blood Loss Estimated Blood Loss: 15 Medication(s) Medication(s): Clopidogrel, Fentanyl, Heparin, Lidocaine 1%, Nicardipine, Nitroglycerin and Versed Summary of Findings Indication: NSTEMI with transient inferior ST elevations Access: 6 Fr right radial artery Catheters: Conrad, 5 Fr JR4 guide Findings: LM -normal caliber, no significant disease LAD -small caliber, no significant disease, tapers to apex. D3 40% proximal. Circumflex -medium caliber 30% mid segment. OM1, OM 2 without significant disease. RCA -dominant, medium caliber, heavily calcified, 50% ostial stenosis, 95% proximal hazy stenosis, 90% mid stenosis. Distal vessel, RPDA, RPLB without significant disease. -- PCI -- Antithrombotic therapy: Lovenox, clopidogrel Procedure: RCA cannulated with JR4 guide Pre-procedure flow SUMEET 3 Whisper wire passed across lesion into distal vessel Difficulty passing any balloons across proximal stenosis. Partially dilated proximal stenosis with 2.0 balloon. Corsair catheter passed across proximal/mid stenosis into distal vessel. Whisper wire exchanged for mailman wire. Proximal to mid RCA dilated with 2.0, 2.5 and 3.0 balloons Dilated proximal to mid RCA stented with 2.75 x 26 mm Dubois drug-eluting stent Stent post-dilated with 3.0 noncompliant balloon Stent, ostial RCA evaluated with IVUS. Pullback revealed well apposed, well- expanded stent. Also noted to have 50% ostial stenosis with eccentric heavily calcified plaque. No ostial thrombus. IC vasodilators administered for spasm Post procedure SUMEET 3 flow, stent well expanded with minimal residual stenosis and no apparent cardiac complications. Arterial Closure: TR band Summary: 1. Severe single vessel coronary artery disease -95% proximal RCA, 90% mid RCA Residual 50% heavily calcified ostial RCA (not stented) 2. Successful PCI of proximal to mid RCA with single drug-eluting stent (2.75 x 26 mm Dubois; postdilated with 3.0 NC). Recommendations: To PCU for continued monitoring Loaded with clopidogrel 600 mg in Field Human Resources Manager Continue dual-antiplatelet therapy for at least 1 year Continue statin, and ASCVD risk factor modification Consult cardiac Rehab Hemodynamics Rest Ao:: 148/58/92 Final Ao: 108/40/60 LV: -- Recommendations Recommendations: PCI without planned CABG Specimens Specimens: None Radiation Exposure (mGy) 3067 Contrast (mls) 85 Anesthesia Moderate 3782-3971 Procedural Complication(s) None Disposition PCU I attest to the content of the Intraoperative Record and any orders documented therein. Any exceptions are noted below. [facility] Card Cath Procedure Codes Cardiac Catheterization Procedure 1: Cardiovascular Cath Procedures: 16359 Coronaries Therapeutic Services & Ancillary Proc Procedure 1: Cardiovascular Tx and Anc Procedures: 96849 IV Ultrasound (Coronary or Graft) Moderate Sedation Procedure 1: Sedation/Anesthesia: 35035 Mod Sedation by the same physician;Init15 Min Child Age 5 & Up Procedure 2: Sedation/Anesthesia: 84555 Mod Sedation by the same physician; Ea [id number] Minutes Stenting Procedure 1: Cardiovascular Stent Procedures: 65509 Perc transcatheter placement of intracoronary stent(s), with ang PG Care Time/CCT Total # of Minutes Spent Total Time Spent with Patient: Total time spent is greater than 50% in coordination of care (as documented) at patient's floor/unit and/or counseling patient:
[2022-01-14] MEDS: CHOLECALCIFEROL 1,000 UNITS 25 MCG TAB PO SCH (00:08)
[2022-01-14] MEDS: valACYclovir HCL 500 MG TABLET PO SCH ×2 (00:10→10:25)
[2022-01-14] MEDS: FLUoxetine HCL 20 MG CAP PO SCH (00:11)
[2022-01-14] MEDS: ROSUVASTATIN CALCIUM 20 MG TAB PO SCH (00:12)
--- NOTE | 2022-01-14 00:36 | Communication Note ---
Date of Service: January 14, 2022 Holding scheduled nitro patch. Bradycardic to 50s. Not having chest pain. Is s/p cath and PCI w/ RCA stent.
--- NOTE | 2022-01-14 07:57 | Electrocardiogram Report ---
Test Reason : Blood Pressure : / mmHG Vent. Rate : 049 BPM Atrial Rate : 049 BPM P-R Int : 184 ms QRS Dur : 112 ms QT Int : 502 ms P-R-T Axes : 057 -19 103 degrees QTc Int : 453 ms Poor data quality, interpretation may be adversely affected Sinus bradycardia with Premature supraventricular complexes Left ventricular hypertrophy with repolarization abnormality Anterolateral infarct , age undetermined Abnormal ECG When compared with ECG of 12-JAN-2022 11:47, Sinus rhythm has replaced Atrial flutter Vent. rate has decreased BY 66 BPM Anterolateral infarct is now Present T wave inversion more evident in Lateral leads Confirmed by Adam Ocasio ([id number]) on 01/14/2022 7:56:28 AM Referred By: REFERRED SELF Confirmed By:Adam Ocasio
[2022-01-14] MEDS ORDERED: INSULIN GLARGINE SOLOSTAR 100 UNITS/ML 3 ML PEN SQ SCH (09:00)
--- NOTE | 2022-01-14 10:14 | Death Pronouncement Note ---
Date of Service January 14, 2022 Pronouncement Note Admission Date January 12, 2022 Date and Time of Date of : 01/14/22 Time of : 08:00 Preliminary Cause of (1) Chest pain: Additional Comments: NSTEMI Contributing Factors HTN , Diabetes , recent COVID 19 infection Summary The patient [facility] with encephalopathy , Leukocytosis . I examined the patient next day her mental status improved to baseline. MRI was ordered.the etiology was unclear possible benzo side effect as benzo was recorded on her medication list. Moreever she had persistent Leukocytosis that was trending up with no evidence of ongoing infectious processes. The [place]BC [place] 98835, and the patient consulted with Hematology who recommended peripheral smear to be read by pathologist . On 01/13 the patient developed chest pain which sound cardiac however no EKG changes reveal on EKG , troponin was elevated and stat cardiac consult was placed and I personally spoke with Potato Chip Fryer causticiser , The patient started on Nitro 0.4 and therapeutic does of Lovenox , the patient had already received aspirin. The patient went to a asset availability leader later same night and according to the Cardiology note the patient had severe CAD and stent was placed the note states : 1. Severe single vessel coronary artery disease -95% proximal RCA, 90% mid RCA Residual 50% heavily calcified ostial RCA (not stented) 2. Successful PCI of proximal to mid RCA with single drug-eluting stent (2.75 x 26 mm Rey; postdilated with 3.0 NC). according to the cross covering physician he became bradycardic at midnight and Her troponin jumped to 270 post cath in the Morning Today at 0800 AM on 01/14 I received a call from the nursing stat the patient is unresponsive and pulseless. The CPR was not initiated given the patient was DNR . THE PATIENT WAS PRONOUNCED ON 01/14/22 @ 0800 and family was informed . Additional Data Attending physician: Meng Price MD
[2022-01-14] MEDS: INSULIN ASPART PER UNIT SC SCH (10:24)
[2022-01-14] MEDS: PANTOprazole 40 MG TAB PO SCH (10:25)
[2022-01-14] MEDS: METOPROLOL TARTRATE 25 MG TAB PO SCH (10:25)
[2022-01-14] MEDS: ASCORBIC ACID 500 MG TAB PO SCH (10:25)
[2022-01-14] MEDS ORDERED: ENOXAPARIN 80 MG/0.8 ML SYR SQ SCH (16:00)
--- NOTE | 2022-01-15 21:25 | Electrocardiogram Report ---
Test Reason : Blood Pressure : / mmHG Vent. Rate : 057 BPM Atrial Rate : 057 BPM P-R Int : 170 ms QRS Dur : 116 ms QT Int : 472 ms P-R-T Axes : 060 -23 043 degrees QTc Int : 459 ms Sinus bradycardia Left ventricular hypertrophy with QRS widening and repolarization abnormality Anterior infarct (cited on or before 13-JAN-2022) Abnormal ECG When compared with ECG of 13-JAN-2022 15:54, ST less depressed in Lateral leads T wave inversion less evident in Lateral leads ST no longer elevated in Inferior leads Confirmed by John Srinivasan ([id number]) on 01/15/2022 9:24:55 PM Referred By: REFERRED SELF Confirmed By:John Srinivasan
--- NOTE | 2022-02-14 17:44 | Discharge Summary ---
Date of Service February 14, 2022 Admission HPI Per Admitting Provider This patient is an 86-year-old female with a history of DM2, HTN, isolated SVT, GERD/esophageal dysmotility, chronic lower back pain, CKD stage III, MITZY on CPAP, RLS, hyperlipidemia, recently discharged on 01/07 with bronchitis. Patient was treated for a possible COVID 19 reinfection despite testing positive within the 90 day period. Initial + test result: 11/08/21. Patient was borught in by her , but he is not available at bedside. Tried calling and he did not respond. Patient is a poor historian, is able to recall her previous hospital stay. She is able to state the date of her previous admission, but is unable to recall why her brought her in. She can not provide details during her time home. From what is discussed with ER provider, it appears patient has been confused, getting progressively weaker at home, and also having SOB. This is what brought the patient back to the ER. CTA chest: showed filling defects and heparin drip was ordered. Admission was called. Principal Diagnosis CAD Discharge Data Allergies Allergy/AdvReac Type Severity Reaction Status Date / Time valdecoxib Allergy Severe DYSPNEA, Verified 01/12/22 14:15 HAS TOLERATED TORADOL hydrochlorothiazide Allergy Intermediate itching Verified 01/12/22 14:15 [From Dyazide] Iodinated Contrast Media Allergy Intermediate RASH Verified 01/12/22 14:15 triamterene [From Dyazide] Allergy Intermediate itching Verified 01/12/22 14:15 adhesive Allergy Mild CLOTH Verified 01/12/22 14:15 ADHESIVE/BANDAIDS-RASH metformin Allergy Mild Diarrhea Verified 01/12/22 14:15 diltiazem AdvReac bradycardia Verified 01/12/22 14:15 Consultations 01/12/22 14:48 ED Decision to Admit Stat 01/12/22 14:50 ED Decision to Admit Stat 01/13/22 13:34 Consult Hematology Routine 01/13/22 17:46 Consult Cardiology Routine Procedures Performed Operation Date: 01/13/22 20:00 Actual Procedures s Cineradiography w/Routine Exam - Mason Ibarra MD p Aspiration/PCI w/MEG for Stemi - Mason Ibarra MD s Cath, Coronaries ONLY (no LV) - Mason Ibarra MD s IVUS Coronary Single Vessel - Mason Ibarra MD Ordered Studies 01/12/22 11:50 CT head/brain wo con Stat 01/12/22 14:54 CT angio chest PE protocol Stat 01/12/22 19:44 US venous doppler LE BI Routine 01/13/22 19:47 CL Cath Imgs for PACS use only Stat 01/13/22 21:44 CL IVUS Coronary Single Vessel Routine 01/14/22 11:32 MR brain wo con Urgent Hospital Course (1) Chest pain: The patient presented to [facility] with encephalopathy , Leukocytosis . I examined the patient next day her mental status improved to baseline. MRI was ordered.the etiology was unclear possible benzo side effect as benzo was recorded on her medication list. Moreever she had persistent Leukocytosis that was trending up with no evidence of ongoing infectious processes. The patient [place] 98262, and the patient consulted with Hematology who recommended peripheral smear to be read by pathologist . On 01/13 the patient developed chest pain which sound cardiac however no EKG changes reveal on EKG , troponin was elevated and stat cardiac consult was placed and I personally spoke with Rocket Motor Mechanic cell biologist , The patient started on Nitro 0.4 and therapeutic does of Lovenox , the patient had already received aspirin. The patient went to a chemical lab technician later same night and according to the Cardiology note the patient had severe CAD and stent was placed the note states : 1. Severe single vessel coronary artery disease -95% proximal RCA, 90% mid RCA Residual 50% heavily calcified ostial RCA (not stented) 2. Successful PCI of proximal to mid RCA with single drug-eluting stent (2.75 x 26 mm Eros; postdilated with 3.0 NC). according to the cross covering physician he became bradycardic at midnight and Her troponin jumped to 270 post cath in the Morning Today at 0800 AM on 01/14 I received a call from the nursing stat the patient is unresponsive and pulseless. The CPR was not initiated given the patient was DNR . THE PATIENT WAS PRONOUNCED ON 01/14/22 @ 0800 and family was informed . Responded to sublingual nitro, elevatedHowever as per review of old chart patient had persistent elevated troponin, order for echocardiogram, continue nitro, currently patient full dose Lovenox, and aspirin, cardiology consult, per review of old labs patient at least have elevated troponin since 01/02 Total Time Total Time Spent Total Time Spent (In Minutes): 45 Discharge Plan Discharge Items Patient Disposition: Other Date/Time: 01/14/22 12:00 Coding Level of Care Code D/C DAY MANAGEMENT >30 MINS Diagnoses Chest pain R07.9
== END 2022-01-14 12:00 | disposition expired | DRG 981 ==
LOC: ED 10:59 → SUATTDRO 19:40 → 2N 19:40 → 2E 01-13 22:00
PROC: CLB.CCO (2022-01-13 20:00)